=== PATIENT | female | born 1960 | race Caucasian/White ===

== ENCOUNTER 2023-09-12 14:48 | Outpatient (CLI) | payer BC, SELFPAY ==
--- NOTE | 2023-09-12 14:40 | CRLHL7_ITS ---
For Patients: As a result of the Century Cures Act, medical imaging exams and procedure reports are released immediately into your electronic medical record. You may view this report before your referring provider. If you have questions, please contact your health care provider. BILATERAL SCREENING MAMMOGRAM WITH COMPUTER-AIDED DETECTION AND TOMOSYNTHESIS TECHNIQUE: CC and MLO views were obtained. These mammographic images have been obtained using full-field digital technique. These mammographic images were interpreted with the benefit of computer-aided detection. Breast Tomosynthesis was used in this interpretation. COMPARISON FILM: 02/14/22, 10/19/20, 09/19/19. FINDINGS: There are scattered areas of fibroglandular density IMPRESSION: There is no radiographic evidence for malignancy. ASSESSMENT: BI-RADS Category 1: Negative RECOMMENDATION: Routine screening mammogram in 1 year. A lay language report of this examination will be provided to the patient. Hill Howell M.D. Diagnostic Radiologist [email or web address] MARITO/Dictated by: Hill Howell MD @ 09/13/2023 8:30:00 AM (Electronically Signed)
== END 2023-09-12 14:49 | disposition home or self-care (01) ==
LOC: MAMMO 14:50
PROVIDERS: Visit Provider Physician Assistant
DX: Z12.31 Encounter for screening mammogram for malignant neoplasm of breast (principal)
CPT/HCPCS: 77063; 77067

== ENCOUNTER 2023-10-22 08:17 | Outpatient (CLI) | payer OTHER, SELFPAY ==
--- OUTSIDE RECORDS SUMMARY | 2023-10-23 07:06 | XMS_ITS | Clinical Summary ---
Author Name Unknown Organization [facility] Address [place], [place] [address] Care Team Providers Care Retail Sales Director Name Role Phone Aminata Coe PA-C Primary Care Provider [phone]- [phone] Allergies No known active allergies Medications Medication Sig Dispensed Refills Start Date End Date Status LEVOTHYROXINE 75 MCG TAB take 1 tablet (75mcg) by oral route once daily 0 Active Active Problems Problem Noted Date Diagnosed Date Unspecified hypothyroidism 11/21/2006 Personal history of malignant melanoma of skin 0 11/21/2006 Overview: (r) breast Immunizations Name Administration Dates Next Due AMB Influenza, IIV3 (Age >=3 years)(Flu Clinic Only) 07/08/2012,07/25/2011,09/02/2010 Amb Influenza, Inact (High-d ose) (Flu Clinic Only) 07/15/2015 Influenza, IIV3 (Age >=3 years) 08/05/2013 Influenza, IIV4 08/08/2016 Tdap 11/21/2006 Family History Medical History Relation Name Comments Heart Disease Paternal Grandmother mi Stroke Paternal Grandmother Relation Name Status Comments Daughter victorino Alive Other wang Alive spouse Paternal Grandmother Son 1 sindy Alive Son 2 raquel Alive Social History Tobacco Use Types Packs/Day Years Used Date Smoking Tobacco: Never Smokeless Tobacco: Never Tobacco Cessation:Counseling Given: Yes Alcohol Use Standard Drinks/Week Comments Yes 2 (1 standard drink = 0.6 oz pur e alcohol) 1 to 2 per week Social Connections Answer Date Recorded Frequency of Communication with Friends and Fami ly Not on file 09/30/2021 Financial Resource Strain Answer Date R ecorded Difficulty of Paying Living Expenses Not on file 09/30/2021 Difficulty of Paying Living Expenses Not on file 09/30/2021 Sex and Gender Information Value Date Recorded Sex Assigned at Not on file Gender Identity Not on file Sexual Orientation Not on file Obstetrics History Last Filed Vital Signs Vital Sign Reading Time Taken Comments Blood Pressure 128/78 09/30/2021 2:25 PM SENIOR UI SOFTWARE ENGINEER Pulse 64 09/30/2021 2:25 PM SENIOR UI SOFTWARE ENGINEER Temperature 36.9 ??C (98.4 ??F) 09/30/2021 2:25 PM CS T Respiratory Rate - - Oxygen Saturation 95% 09/30/2021 2:25 PM SENIOR UI SOFTWARE ENGINEER Inhaled Oxygen Concentration - - Weight 69.8 kg (153 lb 12.8 oz) 08/08/2016 9:32 AM SENIOR UI SOFTWARE ENGINEER Height 165.1 cm (5' 5) 08/08/2016 9:32 AM SENIOR UI SOFTWARE ENGINEER Body Mass Index 25.59 08/08/2016 9:32 AM SENIOR UI SOFTWARE ENGINEER Plan of Treatment Health Maintenance Due Date Last Done Comments HIV for age 15-65 1977 Hepatitis C screening for age 18-79 1980 Lipids for age 45-75 05/22/2011 05/22/2006 Zoster (shingles) series for age 50+ (1 of 2) 2012 Mammogram for age 45-75 09/04/2015 09/04/20 14 ([facility]) Tetanus booster 11/21/2016 11/21/2006 Depression screening for age 12+ 01/16/2017 01/17/2016 BMI (ht and wt on same day) for age 18+ 08/08/2017 08/08/2016, 03/23/2016, 01/17/2016 Pap test for age 21-65 11/10/2022 0, 11/10/2019, 07/29/2014, Additional history exists COVID-19 vaccine series ( season) 2023 01/31/2022, 01/15/2021, 12/25/2020 Influenza for age 50-64 06/01/2023 08/08/20 16, 08/05/2013, 07/08/2012, Additional history exists Fecal testing sDNA-FIT (Cologuard) for age 45-75 10/30/2025 10/30/2022 (Verified in Care Everywhere or Patient Record) Tdap Completed 11/21/2006 Pneumococcal series for age 6-64 Aged Out No longer eligible based on patient's age to complete this topic Care Teams Retail Sales Director Relationship Specialty Start Date End Date Aminata Coe PA-C [address] [place] [phone] PCP - General Physician Checkerer Hand 03/22/23
--- OUTSIDE RECORDS SUMMARY | 2023-10-23 07:06 | XMS_ITS | Clinical Summary ---
Author Name Unknown Organization [facility] Address [address] [place] [id number] Care Team Providers Care City Secretary Name Role Phone Aminata Coe P.A.-C. Primary Care Provider Source Comments Patient records contain information from all sites at [facility]. For routine questions regarding patient records, call [phone] during business hours, M-F 8:00 AM - 5:00 PM Central Time. Record requests for emergency care only can be directed to [phone] at any time.[facility] Allergies Active Allergy Reactions Criticality Noted Date Comments Latex Rash 04/19/2018 And rubber: Contact dermititis Medications Medication Sig Dispensed Refills Start Date End Date Status multivit with minerals/lutein (MULTIVITAMIN 50 PLUS ORAL) Take 1 tablet by mouth daily. 0 02/10/2010 Active fluocinonide (LIDEX) 0.05 % external solution Apply 0.05 application topically 2 (two) times a day as needed for rash. 60 mL 1 01/31/2022 Active fluocinolone (DERMA-SMOOTHE) 0.01 % external oil Apply once weekly overnight to scalp. 0 06/23/2022 Active rosuvastatin (CRESTOR) 20 mg tablet Take 1 tablet (20 mg total) by mouth daily. 30 tablet 5 07/04/2023 Active levothyroxine (SYNTHROID, LEVOTHROID) 88 mcg tablet Take 1 tablet by mouth every morning before breakfast on an empty stomach. 90 tablet 3 09/19/2023 Active Active Problems Patient Care Coordination No te Formatting of this note migh t be different from the original. gardenia signed for patients spouse wang medina. Good for lifetime unless revoked by patient Problem Noted Date Diagnosed Date Gastroesophageal Reflux Disease 04/16/2018 Hyperlipidemia 02/20/2010 Overview: Images from the original note were not included. 06/21/2020: Lipid Profile 270 TG 212 LDL 185 HDL 43 TSH 3.05 Mom: high cholesterol, no h/o stroke or RI, age 80s Dad: on statin, 82 yo, CAD, stent in 70s. Lifelong nonsmoker 07/21/2020 ASCVD risk 3.3% ASCVD risk is low at 3.3%, but LDL is 215, up from 124 in 2006. This is likely familial hyperlipidemia, given the high LDL. TSH is in target range. No signs of renal disease/liver disease/nephrotic syndrome, but last labs in 2019. CT Coronary Calcium Scan 06/2021 showed a Coronary Calcium Score of zero (no calcifications on coronary arteries). Based on this, we decided to defer statins, check lipids every year or two, and focus on maintaining the lifestyle habits to prevent cardiovascular disease. We can refer to familial hyperlipidemia clinic at anytime for additional testing or a second opinion on the role of statins. CV risk factors: Hyperlipidemia and family history of CAD. ?? Last Assessment & Plan: ASCVD risk is low at 3.3%, but LDL is 215, up from 124 in 2006. This is likely familial hyperlipidemia, given the high LDL. TSH is in target range. No signs of renal disease/liver disease/nephrotic syndrome, but last labs in 2019. Hyperlipidemia and family history are her only CV risk factors. --optimize diet and exercise to lower cholesterol --submit a 1 week food log and exercise log for review for opportunities for change. --information on mediterranean diet and alternative therapies to lower cholesterol provided --repeat lipids in 6 months --if lipids remain elevated with LDL > 160, obtain Coronary Calcium Scan to guide decision about statin therapy (consider [facility] self pay option for $100) --if calcifications present, start statin; if not present, continue to optimize lifestyle habits --referral to familial hyperlipidemia clinic is appropriate at anytime --any children/siblings should be screening for lipids if they haven't already done so Hypothyroidism 02/20/2010 Overview: Longstanding, at least since 2007. 10/22/2020 TSH 3.75. Last Assessment & Plan: --labs 10/22/2020 TSH 3.75 --continue levothyroxine 75mcg daily --annual TSH Psoriasis 02/20/2010 Melanoma Of Skin Cancer Personal History 007 Overview: (r) breast. (2004) Goes to [facility] D[facility] 12/2021: Skin lesion biopsied, result: Solar lentigo Last Assessment & Plan: --annual screening skin exam --sun protection measures Resolved Problems Problem Noted Date Diagnosed Date Resolved Date Pain Knee Left 04/22/2018 10/28/2020 Keratosis Seborrheic 04/22/2018 021 Nevus Dysplastic 04/22/2018 10/28/2020 Health Maintenance Examination Adult 04/16/2018 10/28/2020 Dermatitis Contact 04/16/2018 Overview: Both feet Pain Chest Atypical 04/16/2018 10/28/19 21 Overview: Chest pressure in evening Elevated Blood Pressure 04/16/201810/02 Melanoma Skin 02/20/2010 10/28/2020 Overview: Melanoma of Skin, Site Unspecified Encounters Date Type Department Care Team Description 10/05/2023 9:00 AM LIFT OPERATOR Virtual Visit Department of Medical Genetics in [place], [place] [address] [place] [address] Clifton Whitman Hyperlipidemia (Primary Dx) 10/02/2023 Orders Only [facility] Aminata Coe P.A.-C. Screening Mammogram Breast Cancer 09/18/2023 Refill Department of Community Internal Medicine in [place], [place] [address] [place] [phone] Harley Barillas P.A.-C., P.A. Med Refill 08/16/2023 Clinical Communication Department of Medical Genetics in [place], [place] [address] [place] [phone] J Carlos Clifton [place] CV FH Coord 08/15/2023 Clinical Communication Department of Cardiovascular Medicine in [place], [place] [address] [place] [phone] Eliane Trejo APRN, C.N.P., M.S.N. Results (Test results from Aug 02) 08/02/2023 9:22 AM CDT - 08/02/2023 11:59 PM CDT Hospital Encounter Department of Laboratory Medicine and Pathology, [facility] in [place], [place] [address] [place] [address] Eliane Trejo APRN, C.N.P., M.S.N. Hyperlipidemia Discharge Disposition: Home or Self Care 08/02/2023 8:30 AM CDT Comprehensive Visit Department of Cardiovascular Medicine in [place], [place] [address] [place] [address] Eliane Trejo APRN, C.NEdmundo., M.S.N. Hyperlipidemia from Last 3 Months Immunizations Name Administration Dates Next Due DTaP (Infanrix, Tripedia) 11/21/2006 H1N1 All Forms 09/17/2009 Influenza (IM) Preservative Free 07/25/2011 Influenza TIV (IM) 08/05/2013, 2,07/25/2011,2009 Influenza, Injectable, Quadrivalent 08/08/2016 Influenza, Seasonal, Injectable 08/05/2013,07/08,09/02/2010 Influenza, Unspecified 08/15/2013,06/16/2009 SARS-COV-2 (COVID-19) - PFIZ ER (12 years or older) 01/15/2021,12/25/2020 SARS-COV-2 (COVID-19) - PFIZ ER TS(12 years or older) 01/31/2022 Tdap 07/14/2015,11/21/2006 influenza high dose (65 year s or older) (PF) 07/15/2015 influenza vaccine QV(FLUBLOK ) (18 years or older) (PF) 08/06/2021 influenza vaccine quad (FLUZONE/FLUARIX) (6 months and older)(PF) 07/13/2022,06/21/2020,08/08/2019,2017,08/08/2016 Family History Medical History Relation Name Comments Hypertension Aunt Paternal Hyperlipidemia Brother Carlos Jaime Anxiety disorder Daughter Elizabeth Medina Hyperlipidemia Father Clayton Jaime Multiple myeloma Father Clayton Jaime Other cancer Father Clayton Jaime Father 2015 Sleep apnea Father Clayton Jaime Coronary artery disease Father's Sister aunt Hypertension Maternal Grandfather Motor vehicle accident Maternal Grandfather Alcohol abuse Mother Lisy Jaime Just stoppe d using May 04, 2023 Alzheimer's disease Mother Lisy Jaime Dementia Mother Lisy Jaime Depression Mother Lisy Jaime After her hu sband was diagnosed with Cancer in 2014. Not prior Hyperlipidemia Mother Lisy Jaime Suicide Attempts Mother Lisy Jaime Under th e influence of alcohol after spouse passed. Thyroid disease Mother Lisy Jaime Heart attack Paternal Grandmother Lizette Jaime Hypertension Paternal Grandmother Lizette Jaime She was very overweight and did not exercise Obesity Paternal Grandmother Lizette Jaime Hyperlipidemia Sister Joaquin Jaime Hyperlipidemia Son Panda Medina Relation Name Status Comments Aunt Paternal Alive Brother Carlos Jaime Daughter Elizabeth Medina Father Clayton Jaime Father's Sister aunt Maternal Grandfather Mother Lisy Jaime Paternal Grandfather Paternal Grandmother Lizette Jaime Sister Joaquin Jaime Son Panda Medina Social History Tobacco Use Types Packs/Day Years Used Date Smoking Tobacco: Never Smokeless Tobacco: Never Tobacco Cessation:Counseling Given: Not Answered Alcohol Use Standard Drinks/Week Comments Yes 1 (1 standard drink = 0.6 oz pur e alcohol) 1-2 per week Humiliation, Afraid, Rape, and Kick questionnair e Answer Date Recorded Fear of Current or Ex-Partner No Emotionally Abused No 07/21/2020 Physically Abused No 07/21/2020 Sexually Abused No 07/21/2020 Social Connection and Isolation Panel [NHANES] A nswer Date Recorded Frequency of Communication with Friends and Fami ly Not on file 07/21/2020 How often do you get together with friends or re latives? Twice a week 07/21/2020 How often do you attend bahai or faith serv ices? Never 07/21/2020 Do you belong to any clubs o r organizations such as bahai groups, unions, fraternal or athletic groups, or school groups? No 07/21/2020 How often do you attend meet ings of the clubs or organizations you belong to? Never 07/21/2020 Marital Status Not on file 07/21/2020 AUDIT-C Answer Date Recorded Frequency of Alcohol Consumption 2-3 times a wee k 07/21/2020 Average Number of Drinks 1 or 2 020 Frequency of Binge Drinking Never 07/02 Overall Financial Resource Strain (CARDIA) Answe r Date Recorded How hard is it for you to pa y for the very basics like food, housing, medical care, and heating? Not hard at all 08/02/2023 PHQ-2 Answer Date Recorded PHQ-2 Score 0 01/31/2022 [facility] Occupat ional Health - Occupational Stress Questionnaire Answer Date Recorded Feeling of Stress To some extent 07/21/2020 Exercise Vital Sign Answer Date Recorde d On average, how many days pe r week do you engage in moderate to strenuous exercise (like a brisk walk)? 5 days 08/02/2023 On average, how many minutes do you engage in exercise at this level? 40 min 08/02/2023 Hunger Vital Sign Answer Date Recorded Within the past 12 months, y ou worried that your food would run out before you got the money to buy more. Never true 08/02/20 Within the past 12 months, t he food you bought just didn't last and you didn't have money to get more. Never true 08/02/2023 PRAPARE - Transportation Answer Date Re corded In the past 12 months, has l ack of transportation kept you from medical appointments or from getting medications? No 11/2022 In the past 12 months, has l ack of transportation kept you from meetings, work, or from getting things needed for daily living? No 08/02/2023 Nutrition Answer Date Recorded Nutrition: EVOO Fat Source Unknown 08/02 On average, how many serving s of fruits and vegetables do you eat per day (serving size is equal to 1 cup or approximately the size of a tennis ball)? 0-2 08/02/2023 Dental Answer Date Recorded Dental: Regular Dentist Yes 08/02/20 Employment Answer Date Recorded Employment status Employed and actively working without restrictions 08/02/2023 Housing Stability Answer Date Recorded What is your living situation today? I have a [facility] place to live 08/02/2023 Education Answer Date Recorded What is the highest level of school you have completed or the highest degree you have received? Bachelor's degree (e.g., BA, AB, BS) 04/17/2019 Sex and Gender Information Value Date Recorded Sex Assigned at Not on file Gender Identity Female 01/15/2020 9:15 AM CDT Sexual Orientation Straight 01/15/2020 9: 15 AM CDT Last Filed Vital Signs Vital Sign Reading Time Taken Comments Blood Pressure 118/74 02/27/2023 7:49 AM CDT Pulse 60 02/27/2023 7:49 AM CDT Temperature 35.7 ??C (96.2 ??F) 02/27/2023 7:49 AM CD T Respiratory Rate 16 02/27/2023 7:49 AM CDT Oxygen Saturation 97% 10/28/2020 10:33 AM LIFT OPERATOR Inhaled Oxygen Concentration - - Weight 65.5 kg (144 lb 6.4 oz) 02/27/2023 7:49 A M CDT Height 165.3 cm (5' 5.08) 01/31/2022 9:23 AM CD T Body Mass Index 23.97 01/31/2022 9:23 AM CDT Plan of Treatment Health Maintenance Due Date Last Done Comments CT Colonography 1962 FIT 1960 Hepatitis C Screening 1960 Zoster Vaccines (1 of 2) 2012 Colonoscopy 08/13/2022 08/13/2012 Depression Screening (Annual PHQ-2) 10/01/2023 Thyroid Stimulating Hormone (TSH) test for thyroid function 07/04/2024 07/04/2023, 01/31/2023, 01/31/2022, Additional history exists Mammogram 09/12/2024 09/12/2023 (Perf ormed elsewhere), 02/12/2022 (Performed elsewhere), 09/19/2019, Additional history exists Cervical Cancer Screening 11/10/20242019, 11/10/2019, 11/10/2019, Additional history exists DTaP,Tdap,and Td Vaccines (4 - Td or Tdap) 07/14/2025 07/14/2015, 11/21/2006, 11/21/2006 Cologuard 10/23/2025 10/23/2022 Colorectal Cancer Screening 10/23/2025 Fasting Glucose for Diabetes Screening 07/04/2026 07/04/2023, 07/04/2023, 01/31/2023, Additional history exists Lipid (Cholesterol) Screening 07/04/2028 07/04/2023, 07/04/2023, 01/31/2023, Additional history exists Influenza Vaccine Completed 06/28/2023, , 08/06/2021, Additional history exists COVID-19 Vaccine Completed 07/23/2023, , 01/31/2022, Additional history exists Pneumococcal vaccine (0-64 years) Aged Out No longer eligible based on patient's age to complete this topic Procedures Procedure Name Priority Date/Time Associated Diagnosis Comments CRYOPRESERVATION FOR MOLEC STUDIES Routine 08/02/2023 9:42 AM CDT Hyperlipidemia from Last 3 Months Results * Cryopreservation for Molecular Genetic Studies (08/02/2023 9:42 AM CDT) Comment A DNA specimen has been stored for future genomic studies. This specimen has been stored at the request of the ordering physician for anticipated future testing. In some instances, a portion of the specimen may remain available (by consent) for use by the individual and/or family. This is not a DNA banking service. If continuous churn buttermaker, guaranteed specimen storage is required, DNA banking should be considered. The Genomic Extraction Core extracted DNA. DNA Volume (microliters): ??500+ Please review the following table to determine the possible number of tests that can be added for send out testing. DNA (ul) ? Possible Send Outs (~120 ul) <100 ? Recommend Redraw 100 ?1 250 ?2 500 ?4 08/09/2023 10:27 PM LIFT OPERATOR DTL Specimen WB Whole Blood 08/09/2023 10:27 PM LIFT OPERATOR DTL Released By JENNA ARENAS 08/09/2023 10:27 PM LIFT OPERATOR DTL Blood (Blood, Venous) 08/02/2023 9:42 AM CDT 08/02/2023 10:37 AM CDT Eliane Trejo APRN, C.N.P., M.S.N. LAB GENETIC TESTING [facility] [address] [place] [address], [facility] [address] [place] [address] from Last 3 Months Care Teams City Secretary Relationship Specialty Start Date End Date Aminata Coe P.A.-C. [address] [place] [phone] PCP - General Internal Medicine 09/26/22
--- OUTSIDE RECORDS SUMMARY | 2023-10-23 07:06 | XMS_ITS ---
Author Name Unknown Organization [facility] Address [address] [place] [address] Care Team Providers Care Property Technician Name Role Phone Unavailable Unavailable Unavailable Surgery Details Not on file Complications Check Surgery Details section. Procedure Estimated Blood Loss Check Surgery Details section. Procedure Findings Check Surgery Details section. Procedure Specimens Taken Check Surgery Details section.
--- OUTSIDE RECORDS SUMMARY | 2023-10-23 07:06 | XMS_ITS | Referral Summary ---
Author Name Unknown Organization [facility] Address [address] [place] [address] Care Team Providers Care Outsole Handler Name Role Phone Aminata Coe P.A.-C. Primary Care Provider Source Comments Patient records contain information from all sites at [facility]. For routine questions regarding patient records, call [phone] during business hours, M-F 8:00 AM - 5:00 PM Central Time. Record requests for emergency care only can be directed to [phone] at any time.[facility] Encounters Date Type Department Care Team Description 10/05/2023 9:00 AM INTERFACE DEVELOPER Virtual Visit Department of Medical Genetics in [place], [place] [address] [place] [phone] Clifton Whitman Hyperlipidemia (Primary Dx) 10/02/2023 Orders Only [facility] PCP [facility] NJT Aminata Coe P.A.-C. Screening Mammogram Breast Cancer 09/18/2023 Refill Department of Community Internal Medicine in [address] [phone] Harley Barillas P.A.-C., P.A. Med Refill 08/16/2023 Clinical Communication Department of Medical Genetics in [place], [place] [address] [place] [phone] Clifton Whitman CV FH Coord 08/15/2023 Clinical Communication Department of Cardiovascular Medicine in [place], [place] [address] [place] [phone] Eliane Trejo APRN, C.N.P., M.S.N. Results (Test results from Aug 02) 08/02/2023 9:22 AM CDT - 08/02/2023 11:59 PM CDT Hospital Encounter Department of Laboratory Medicine and Pathology, [facility], in [place], [place] [address] [place] [address] Eliane Trejo APRN, C.N.P., M.S.N. Hyperlipidemia Discharge Disposition: Home or Self Care 08/02/2023 8:30 AM CDT Comprehensive Visit Department of Cardiovascular Medicine in [place], [place] [address] [place] [phone] Eliane Trejo APRN, C.N.P., M.S.N. Hyperlipidemia from Last 3 Months Allergies Active Allergy Reactions Criticality Noted Date [...] Mom: high cholesterol, no h/o stroke or NV, age 80s Dad: on statin, 82 yo, [...] to guide decision about statin therapy (consider [facility] self pay option for $100) --if calcifications [...] Cancer Personal History 007 Overview: (r) breast. (2005) Goes to [facility] 12/2021: Skin lesion biopsied, result: Solar lentigo Last Assessment & Plan: --annual screening skin exam --sun protection measures Resolved Problems Problem Noted Date Diagnosed Date Resolved Date Pain Knee Left 04/22/2018 10/28/2020 Keratosis Seborrheic 04/22/2018 021 Nevus Dysplastic 04/22/2018 10/28/2020 Health Maintenance Examination Adult 04/16/2018 10/28/2020 Dermatitis Contact 04/16/2018 Overview: Both feet Pain Chest Atypical 04/16/2018 10/28/19 Overview: Chest pressure in evening Elevated Blood Pressure 04/16/201810/02 Melanoma Skin 02/20/2010 10/28/2020 Overview: Melanoma of Skin, Site Unspecified Immunizations Name Administration Dates Next Due DTaP [...] quad (FLUZONE/FLUARIX) (6 months and older)(PF) 07/13/2022,06/21/2020,08/08/2019,2017,08/08/2016 Social History Tobacco Use Types Packs/Day Years [...] week 07/21/2020 How often do you attend cheondoism or roman catholic serv ices? Never 07/21/2020 Do you belong to any clubs o r organizations such as cheondoism groups, unions, fraternal or athletic groups, or [...] Answer Date Recorded PHQ-2 Score 0 01/31/2022 [facility] of Occupat ional Health - Occupational Stress [...] your living situation today? I have a [facility] place to live 08/02/2023 Education Answer [...] CDT Oxygen Saturation 97% 10/28/2020 10:33 AM INTERFACE DEVELOPER Inhaled Oxygen Concentration - - Weight 65.5 kg (144 lb 6.4 oz) 02/27/2023 7:49 A M CDT Height 165.3 cm (5' 5.08) 01/31/2022 9:23 AM CD T Body Mass Index 23.97 01/31/2022 9:23 AM CDT Plan of Treatment Not on file Procedures Procedure Name Priority Date/Time Associated Diagnosis [...] is not a DNA banking service. If buttermaker, guaranteed specimen storage is required, DNA banking should be considered. The Genomic Extraction Core extracted DNA. DNA Volume (microliters): ??500+ Please review the following table to determine the possible number of tests that can be added for send out testing. DNA (ul) ? Possible Send Outs (~120 ul) <100 ? Recommend Redraw 100 ?1 250 ?2 500 ?4 08/09/2023 10:27 PM INTERFACE DEVELOPER DTL Specimen WB Whole Blood 08/09/2023 10:27 PM INTERFACE DEVELOPER DTL Released By JENNA ARENAS 08/09/2023 10:27 PM INTERFACE DEVELOPER DTL Blood (Blood, Venous) 08/02/2023 9:42 AM CDT 08/02/2023 10:37 AM CDT Eliane Trejo APRN, C.N.P., M.S.N. LAB GENETIC TESTING [facility] [place] [address] [place] [address], [facility] DTL [address] [place] [address] from Last 3 Months Care Teams Outsole Handler Relationship Specialty Start Date End Date Aminata Coe P.A.-C. [address] [place] [address] AYALA Liao [phone] PCP - General Internal Medicine 09/26/22
--- OUTSIDE RECORDS SUMMARY | 2023-10-23 07:07 | XMS_ITS | Encounter Summary ---
Author Name Unknown Organization [facility] Address [address] [place] [id number] Care Team Providers Care Reinforcer Name Role Phone Aminata Coe P.A.-C. Primary Care Provider Reason for Visit * Outpatient (Routine) - Closed Specialty Diagnoses / Procedures Referred By Contact Referred To Contact Cardiovascular Diseases / Cardiovascular Disease Diagnoses Hyperlipidemia Susu Sevilla M.D., M.P.H. [address] [place] [phone] [facility] Referral ID Status Reason Start Date Expiration Date Visits Re quested Visits Authorized [id number] Closed 06/28/2023 06/27/2024 1 1 Encounter Details Date Type Department Care Team (Latest Contact Info) Description 08/02/2023 8:30 AM CDT Comprehensive Visit Department of Cardiovascular Medicine in [place], [place] [address] [place] [phone] Eliane Trejo APRN, C.N.P., M.S.N. [address] [place] [phone] Hyperlipidemia Social History Tobacco Use Types Packs/Day Years Used Date Smoking Tobacco: Never Smokeless Tobacco: Never Alcohol Use Standard Drinks/Week Comments Yes 0 (1 standard drink = 0.6 oz pur [...] week 07/21/2020 How often do you attend mu-ism or latter day serv ices? Never 07/21/2020 Do you belong to any clubs o r organizations such as mu-ism groups, unions, fraternal or athletic groups, or [...] Answer Date Recorded PHQ-2 Score 0 01/31/2022 [facility] of Occupat ional Health - Occupational Stress [...] money to buy more. Never true 08/02/20 23 Within the past 12 months, t he [...] your living situation today? I have a [facility] place to live 08/02/2023 Education Answer Date Recorded What is the highest level of school you have completed or the highest degree you have received? Bachelor's degree (e.g., BA, AB, BS) 04/17/2019 Sex and Gender Information Value Date Recorded Sex Assigned at Not on file Gender Identity Female 01/15/2020 9:15 AM CDT Sexual Orientation Straight 01/15/2020 9: 15 AM CDT documented as of this encounter Progress Notes * Eliane Trejo APRN, C.N.P., M.S.N. - 08/02/2023 8:30 AM CDT SUBJECTIVE CHIEF COMPLAINT/REASON FOR VISIT Hyperlipidemia suggestive of Familial Hypercholesterolemia HISTORY OF PRESENT ILLNESS Reshma Nielsen is a 63 y.o. female who is being seen today for initial consultation. She was referred by Dr. Sevilla for hyperlipidemia suggestive of familial hypercholesterolemia or other underlyinggenetic cause. Personal Cardiac History: None Family History: Mother history of hyperlipidemia Father stent in his 70s and at 83 years of age Paternal aunt had a stent placed later in life Paternal cousin had a stent placed Paternal grandmother had an DC later in life Lipid History: Max Total Cholesterol-274 Max LDL-208 Lpa-22 I reviewed historic lipid values dating back to 2005. Her LDL cholesterol was 124 at that time. Between 2017 in 2022 her LDL cholesterol varying between 150-161. Prior lipid medication history: Started on rosuvastatin 20 mg per day July 04, 2023 We discussed lifestyle habits, specifically diet and exercise. She notes she diet to be reasonably healthy. Her exercise habits include elliptical. The following portions of the patient's history were reviewed and updated as appropriate: allergies, current medications, family history, medical history, social history, surgical history, and problem list. OBJECTIVE PHYSICAL EXAMINATION Constitutional Appearance: Normal appearance. HENT Head: Normocephalic. Eyes Conjunctiva/sclera: Conjunctivae normal. Comments: No corneal arcus or xanthelasma Pulmonary Effort: Pulmonary effort is normal. Neurological Mental Status: She is alert and oriented to person, place, and time. Psychiatric Mood and Affect: Mood normal. Behavior: Behavior normal. DIAGNOSTICS Lipids: Lab Results Component Value Date/Time CHOL 262 (H) 07/04/2023 09:17 AM CHOL 274 (H) 07/04/2023 09:17 AM TRIG 96 07/04/2023 09:17 AM TRIG 96 07/04/2023 09:17 AM HDL 49 (L) 07/04/2023 09:17 AM HDL 49 (L) 07/04/2023 09:17 AM LDLCALC 196 (H) 07/04/2023 09:17 AM LDLCALC 208 (H) 07/04/2023 09:17 AM LDLCALC 154 (H) 05/17/2021 08:24 AM Lipoprotein (a) Date Value Ref Range Status 07/04/2023 22 <75 nmol/L Final Comment: ----ADDITIONAL INFORMATION---- Please notice that Lp(a) values are reported in molar units (nmol/L). These units are recommended by professional society guidelines and expert opinion statements. Measured results and risk thresholds are higher than those generated using mass units (mg/dL). Cardiovascular risk increases starting at 75 nmol/L. Lp(a) >=125 nmol/L is considered a risk enhancing factor by the [place] [employer]. This test has been modified from the bench carpenter's instructions. Its performance characteristics were determined by [facility] in a manner consistent with CLIA requirements. This test has not been cleared or approved by the U.S. Food and Drug Administration. Glucose, P Date Value Ref Range Status 07/04/2023 86 70 - 100 mg/dL Final 01/31/2023 CANCELED mg/dL Comment: Duplicate test request. Result canceled by the ancillary. Hemoglobin A1c, B Date Value Ref Range Status 07/04/2023 5.7 (H) 4.2 - 5.6 % Final Comment: Hemoglobin A1c values of 5.7-6.4 percent indicate an increased risk for developing diabetes mellitus. In diabetic patients, HbA1c goals should be discussed with healthcare provider. C-Reactive Protein, High Sens, S Date Value Ref Range Status 07/04/2023 0.7 <2.0 mg/L Final DC-Heart Ceramide Risk Score Date Value Ref Range Status 07/04/2023 2 Final Comment: Lower Risk. Relative cardiovascular risk is similar to baseline risk. ----REFERENCE VALUE---- 0-2 Lower Risk 3-6 Moderate Risk 7-9 Increased Risk 10-12 Higher Risk ASSESSMENT / PLAN #1 Hyperlipidemia Ms. Nielsen has history of hyperlipidemia that is now treated with rosuvastatin 20 mg per day. She has a [place] [employer] score of 4 indicating possible familial hypercholesterolemia. Sinceerma has no family history of premature ASCVD my suspicion for FH is reasonably low. However, it is reasonable to consider the possibility. Lipoprotein (a) is normal. DC Heart Ceramide Risk score is 2; low risk. Would suggest goal LDL of <100: Continue with rosuvastatin as prescribed. She is scheduled to have repeat lipid panel in October as arranged by her local provider. If goal LDL not achieved would recommend intensifying therapy. Genetic counselor visit: She agreed to consider genetic testing for familial hypercholesterolemia therefore I will arrange for her to discuss testing process with our genetics counselor assistant site manager, Clifton Whitman. Preemptively I have placed orders for cryopreservation labs which will be drawn today after our visit. If a genetic variant is identified recommend that first-degree relatives be tested. She is encouraged to maintain a healthy diet and regular exercise regimen. Guidelines recommend a Mediterranean style diet with plenty of fruits and vegetables, lean proteins, healthy fats, and limited simple carbohydrates and sugars. Exercise recommendations include 150 minutes per week of moderate to intense level cardio and 30 minutes of strength training per week. It was my pleasure to participate in the care of Reshma Nielsen. She verbalized understanding of recommendations and had no further questions. Eliane Trejo APRN, C.N.P., M.S.N. [facility] is designed to be a consultative practice that focuses on risk factor optimization in the primary and secondary prevention of cardiovascular disease. Encourage local provider to implement any follow-up recommendations for longitudinal management. documented in this encounter Plan of Treatment Not on file documented as of this encounter Results * Cryopreservation for Molecular Genetic Studies [...] is not a DNA banking service. If fpc, guaranteed specimen storage is required, DNA banking should be considered. The Genomic Extraction Core extracted DNA. DNA Volume (microliters): ??500+ Please review the following table to determine the possible number of tests that can be added for send out testing. DNA (ul) ? Possible Send Outs (~120 ul) <100 ? Recommend Redraw 100 ?1 250 ?2 500 ?4 08/09/2023 10:27 PM LOADING UNIT OPERATOR DTL Specimen WB Whole Blood 08/09/2023 10:27 PM LOADING UNIT OPERATOR DTL Released By JENNA ARENAS 08/09/2023 10:27 PM LOADING UNIT OPERATOR DTL Blood (Blood, Venous) 08/02/2023 9:42 AM CDT 08/02/2023 10:37 AM CDT Eliane Trejo APRN C.N.P., M.S.N. LAB GENETIC TESTING [facility] [address] [place] [address], [facility] DTL [address] [place] [address] documented in this encounter Visit Diagnoses Diagnosis Hyperlipidemia documented in this encounter Care Teams Reinforcer Relationship Specialty Start Date End Date Aminata oCe P.A.-C. [address] [place] [phone] PCP - General Internal Medicine 09/26/22 documented as of this encounter
--- OUTSIDE RECORDS SUMMARY | 2023-10-23 07:07 | XMS_ITS | Encounter Summary ---
Author Name Unknown Organization [facility] Address [address] [place] [address] Care Team Providers Care Polarity Tester Name Role Phone Aminata Coe P.A.-C. Primary Care Provider Encounter Details Date Type Department Care Team (Latest Contact Info) Description 07/04/2023 8:49 AM CDT - 07/04/2023 11:59 PM CDT Hospital Encounter Department of Laboratory Medicine in [address] [phone] Susu Sevilla M.D., M.P.H. Hyperlipidemia Discharge Disposition: Home or Self Care Social History Tobacco Use Types Packs/Day Years [...] week 07/21/2020 How often do you attend sikh or oriental orthodox serv ices? Never 07/21/2020 Do you belong to any clubs o r organizations such as sikh groups, unions, fraternal or athletic groups, or [...] Resource Strain (CARDIA) Answe r Date Recorded Difficulty of Paying Living Expenses Not hard at all 07/21/2020 PHQ-2 Answer Date Recorded PHQ-2 Score 0 01/31/2022 [facility] - Occupational Stress Questionnaire Answer Date Recorded Feeling of Stress To some extent 07/21/2020 Exercise Vital Sign Answer Date Recorde d On average, how many days pe r week do you engage in moderate to strenuous exercise (like a brisk walk)? 5 days Minutes of Exercise per Session Not on file 07/21/2020 Hunger Vital Sign Answer Date Recorded Worried About Running Out of Food in the Last Ye ar Never true 07/21/2020 Ran Out of Food in the Last Year Never true 07/21/2020 PRAPARE - Transportation Answer Date Re corded Lack of Transportation (Medical) No 07/21/2020 Lack of Transportation (Non-Medical) No 07/21/2020 Nutrition Answer Date Recorded Nutrition: EVOO Fat Source No 02/27 Nutrition: Servings of Fruits/Vegetables per Day Not on file 02/27/2023 Dental Answer Date Recorded Dental: Regular Dentist Yes 10/03/19 Education Answer Date Recorded What is the highest level of school you have completed or the highest degree you have received? Bachelor's degree (e.g., BA, AB, BS) 04/17/2019 Sex and Gender Information Value Date Recorded Sex Assigned at Not on file Gender Identity Female 01/15/2020 9:15 AM CDT Sexual Orientation Straight 01/15/2020 9: 15 AM CDT documented as of this encounter Medications at Time of Discharge Medication Sig Dispensed Refills Start Date End Date fluocinolone (DERMA-SMOOTHE) 0.01 % external oil Apply once weekly overnight to scalp. 0 06/23/2022 fluocinonide (LIDEX) 0.05 % external solution Apply 0.05 application topically 2 (two) times a day as needed for rash. 60 mL 1 01/31/2022 multivit with minerals/lutein (MULTIVITAMIN 50 PLUS ORAL) Take 1 tablet by mouth daily. 0 02/10/2010 rosuvastatin (CRESTOR) 20 mg tablet Take 1 tablet (20 mg total) by mouth daily. 30 tablet 5 07/04/2023 levothyroxine (SYNTHROID, LEVOTHROID) 88 mcg tablet Take 1 tablet by mouth every morning before breakfast on an empty stomach. 90 tablet 0 04/05/2023 09/19/2023 documented as of this encounter Miscellaneous Notes * Result Encounter Note - Susu Sevilla M.D., M.P.H. - 07/04/2023 1:02 PM CDT #1 Hyperlipidemia with LDL > 190 Resulted via portal. Lipid clinic has been ordered, but not scheduled. Recommended rosuvastatin 20mg, repeat lipids in 3 months. Likely she will need 40mg rosuvastatin. No role for repeating coronarycalcium scan (negative previously). Now that lipids > 190, recommend lifelong statin therapy. TSH in goal range. Fasting glucose normal. EKG normal. documented in this encounter Plan of Treatment Not on file documented as of this encounter Procedures Procedure Name Priority Date/Time Associated Diagnosis Comments NV-HEART CERAMIDE, P Routine 07/04/2023 9:19 AM CDT Hyperlipidemia HEMOGLOBIN A1C, B Routine 07/04/2023 9:1 9 AM CDT Hyperlipidemia GLUCOSE, FASTING, S/P Routine 07/04/2023 9:19 AM CDT Hyperlipidemia LIPID PANEL, S Routine 07/04/2023 9:17 AM CDT Hyperlipidemia THYROID FUNCTION CASCADE, S Routine 07/04/2023 9:17 AM CDT Hyperlipidemia CARDIOVASCULAR RISK MARKER PANEL, S Routine 07/04/2023 9:17 AM CDT Hyperlipidemia ASPARTATE AMINOTRANSFERASE (AST), S/P Routine 07/04/2023 9:17 AM CDT Hyperlipidemia CREATININE WITH EGFR, S/P Routine 07/04/2023 9:17 AM CDT Hyperlipidemia documented in this encounter Results * (ABNORMAL) Hemoglobin A1c (07/04/2023 9:19 AM CDT) Hemoglobin A1c, B 5.7(H) 4.2 - 5.6 % 07/04/2023 1:08 PM CDT OWAT Comment: Hemoglobin A1c values of 5.7-6.4 percent indicate an increased risk for developing diabetes mellitus. In diabetic patients, HbA1c goals should be discussed with healthcare provider. Blood (Blood, Venous) 07/04/2023 9:19 AM CDT 07/04/2023 11:42 AM CDT Susu Sevilla M.D., M.P.H. LAB BLOOD ADD-ON Performing Organization Address City/[facility]/ZIP Co de Phone Number [facility] [address] [place] [address], [facility] OW[address] [facility] [address] [place] [phone] * Glucose, Fasting (07/04/2023 9:19 AM CDT) Glucose, P 86 70 - 100 mg/dL 07/04/2023 11:53 AM CDT OWAT Last Intake 15 hr 07/04/2023 11:06 AM CDT OWAT Blood (Blood, Venous) 07/04/2023 9:19 AM CDT 07/04/2023 11:06 AM CDT Susu Sevilla M.D., M.P.H. LAB BLOOD NON ADD-ON Performing Organization Address City/[facility]/ZIP Co de Phone Number [facility] [address] [place] [address], [place] [address] [facility] [address] [place] [address] * NV-Heart Ceramide, Plasma (07/04/2023 9:19 AM CDT) NV-Heart Ceramide Risk Score 2 07/09/2023 8:03 AM CDT DTL Comment: Lower Risk. Relative cardiovascular risk is similar to baseline risk. ----REFERENCE VALUE---- 0-2 Lower Risk 3-6 Moderate Risk 7-9 Increased Risk 10-12 Higher Risk Ceramide (16:0) 0.28 0.19 - 0.36 mcmol/L 07/09/2023 8:03 AM CDT DTL Ceramide (18:0) 0.07 0.05 - 0.14 mcmol/L 07/09/2023 8:03 AM CDT DTL Ceramide (24:1) 1.39 0.65 - 1.65 mcmol/L 07/09/2023 8:03 AM CDT DTL Ceramide (16:0)/(24:0) ratio 0.06 <0.11 07/09/2023 8:03 AM CDT DTL Ceramide (18:0)/(24:0) ratio 0.02 <0.05 07/09/2023 8:03 AM CDT DTL Ceramide (24:1)/(24:0) ratio 0.31 <0.45 07/09/2023 8:03 AM CDT DTL Comment: ----ADDITIONAL INFORMATION---- Liquid Chromatography-Tandem Mass Spectrometry (LC-MS/MS) This test was developed and its performance characteristics determined by [facility] in a manner consistent with CLIA requirements. This test has not been cleared or approved by the U.S. Food and Drug Administration. Blood (Blood, Venous) 07/04/2023 9:19 AM CDT 07/05/2023 8:17 AM CDT Susu Sevilla M.D., M.P.H. LAB BLOOD NON ADD-ON [facility] [address] [place] [address], [facility] DTL [address] [place] [address] * (ABNORMAL) Cardiovascular Risk Marker Panel (07/04/2023 9:17 AM CDT) [facility] Cholesterol, LDL, Calculated 208(H) mg/dL 07/05/2023 12:50 PM CDT DTL Comment: The markedly elevated LDL level is suggestive of a genetic condition such as familial hypercholesterolemia (FH) or familial defective apolipoprotein B-100 (FDB). Molecular genetic testing for FH and FDB is available through [facility]. ----REFERENCE VALUE---- Desirable: <100 mg/dL Above Desirable: 100-129 mg/dL Borderline High: 130-159 mg/dL High: 160-189 mg/dL Very High: >=190 mg/dL ----ADDITIONAL INFORMATION---- LDL cholesterol calculated using the Suresh/NIH equation. Cholesterol, Non-HDL, Calculated 225(H) mg/dL 07/05/2023 12:50 PM CDT DTL Comment: ----REFERENCE VALUE---- Desirable: <130 mg/dL Above Desirable: 130-159 mg/dL Borderline High: 160-189 mg/dL High: 190-219 mg/dL Very High: > or =220 mg/dL Apolipoprotein B, S 143(H) mg/dL 07/05 10:46 AM CDT DTL Comment: ----REFERENCE VALUE---- Desirable: <90 Above Desirable: 90-99 Borderline high: 100-119 High: 120-139 Very high: > or = 140 Cholesterol, HDL, S 49(L) >=50 mg/dL 07/05/2023 12:50 PM CDT DTL Cholesterol, Total 274(H) mg/dL 2022 12:50 PM CDT DTL Comment: ----REFERENCE VALUE---- Desirable: < 200 mg/dL Borderline High: 200 - 239 mg/dL High: > or = 240 mg/dL Triglycerides 96 mg/dL 07/05/2023 12:50 PM CDT DTL Comment: ----REFERENCE VALUE---- Normal: <150 mg/dL Borderline High: 150-199 mg/dL High: 200-499 mg/dL Very High: > or =500 mg/dL Lipoprotein (a) 22 <75 nmol/L 07/05/2023 10:46 AM CDT DTL Comment: ----ADDITIONAL INFORMATION---- Please notice that Lp(a) values are reported in molar units (nmol/L). ??These units are recommended by professional society guidelines and expert opinion statements. ??Measured results and risk thresholds are higher than those generated using mass units (mg/dL). Cardiovascular risk increases starting at 75 nmol/L. Lp(a) >=125 nmol/L is considered a risk enhancing factor by the [place] [employer]. This test has been modified from the scada engineer's instructions. Its performance characteristics were determined by [facility] in a manner consistent with CLIA requirements. This test has not been cleared or approved by the U.S. Food and Drug Administration. C-Reactive Protein, High Sens, S 0.7 <2.0 mg/L 07/05/2023 12:50 PM CDT DTL Interpretation SEE COMMENT 12:50 PM CDT DTL Comment: ACC/AHA guidelines recommend lipid lowering therapy for patients with LDL cholesterol >=190 mg/dL. Reduced HDL-C is strongly associated with risk of cardiovascular disease. Elevated apoB >=130 mg/dL is a risk-enhancing factor for cardiovascular disease. Clinician-patient discussion of therapeutic strategy is warranted. Fasting (8 HR or more) yes 07/05/2023 12:33 PM CDT DTL Blood (Blood, Venous) 07/04/2023 9:17 AM CDT 07/05/2023 8:28 AM CDT Narrative [facility] - 07/05/2023 12:50 PM CDT Specimen Information: Specimen ID: [id number] Specimen Type: Blood Specimen Collection Start Date: 07/04/2023 ??9:17 AM Specimen Received Date: 07/05/2023 ??8:28 AM Specimen ID: [id number] Specimen Type: Blood Specimen Collection Start Date: 07/04/2023 ??9:17 AM Specimen Received Date: 07/05/2023 12:33 PM Susu Sevilla M.D., M.P.H. LAB BLOOD NON ADD-ON [facility] [address] [place] [address], [place] DTL [facility] [address] [place] [address] * Thyroid Function [place] (07/04/2023 9:17 AM CDT) TSH, Sensitive 2.6 0.3 - 4.2 mIU/L 07/04/2023 12:52 PM CDT OW[facility] Blood (Blood, Venous) 07/04/2023 9:17 AM CDT 07/04/2023 11:42 AM CDT Susu Sevilla M.D., M.P.H. LAB BLOOD ADD-ON [facility] [address] [place] [address], [facility] OWAT [facility] [address] [place] [address] * (ABNORMAL) Lipid Panel (07/04/2023 9:17 AM CDT) Triglycerides 96 mg/dL 07/04/2023 12:50 PM CDT OWAT Comment: ----REFERENCE VALUE---- Normal: <150 mg/dL Borderline High: 150-199 mg/dL High: 200-499 mg/dL Very High: > or =500 mg/dL Cholesterol, Total 262(H) mg/dL 2022 12:50 PM CDT OWAT Comment: ----REFERENCE VALUE---- Desirable: < 200 mg/dL Borderline High: 200 - 239 mg/dL High: > or = 240 mg/dL Cholesterol, LDL, Calculated 196(H) mg/dL 07/04/2023 12:50 PM CDT OW[facility] Comment: The markedly elevated LDL level is suggestive of a genetic condition such as familial hypercholesterolemia (FH) or familial defective apolipoprotein B-100 (FDB). Molecular genetic testing for FH and FDB is available through [facility] [employer]. ----REFERENCE VALUE---- Desirable: <100 mg/dL Above Desirable: 100-129 mg/dL Borderline High: 130-159 mg/dL High: 160-189 mg/dL Very High: >=190 mg/dL ----ADDITIONAL INFORMATION---- LDL cholesterol calculated using the Suresh/NIH equation. Cholesterol, HDL 49(L) >=50 mg/dL 07/04/20 12:50 PM CDT OWAT Cholesterol, Non-HDL, Calculated 213(H) mg/dL 07/04/2023 12:50 PM CDT OW[facility] Comment: ----REFERENCE VALUE---- Desirable: <130 mg/dL Above Desirable: 130-159 mg/dL Borderline High: 160-189 mg/dL High: 190-219 mg/dL Very High: > or =220 mg/dL Fasting (8 HR or more) yes 07/04/2023 11:42 AM CDT OW[facility] Blood (Blood, Venous) 07/04/2023 9:17 AM CDT 07/04/2023 11:42 AM CDT Susu Sevilla M.D., M.P.H. LAB BLOOD ADD-ON [facility] [address] [place] [address], [facility] OWAT [facility] [address] [place] [address] * Creatinine with Estimated GFR (07/04/2023 9:17 AM CDT) Creatinine 0.84 0.59 - 1.04 mg/dL 07/04/2023 12:50 PM CDT OWAT Estimated GFR (eGFR) 79 >=60 mL/min/BSA 07/04/2023 12:50 PM CDT OWAT Comment: Estimated GFR calculated using the 2020 CKD_EPI creatinine equation. Blood (Blood, Venous) 07/04/2023 9:17 AM CDT 07/04/2023 11:42 AM CDT Susu Sevilla M.D., M.P.H. LAB BLOOD ADD-ON [facility] [address] [place] [address], [facility] [address] [place] [address] * AST (Aspartate Aminotransferase) (07/04/2023 9:17 AM CDT) Aspartate Aminotransferase (AST), P 31 8 - 43 U/L 07/04/2023 12:50 PM CDT OW[facility] Blood (Blood, Venous) 07/04/2023 9:17 AM CDT 07/04/2023 11:42 AM CDT Susu Sevilla M.D., M.P.H. LAB BLOOD ADD-ON Performing Organization Address [facility] Co de Phone Number [facility] [address] [place] [address], [facility] [address] [place] [address] documented in this encounter Visit Diagnoses Diagnosis Hyperlipidemia documented in this encounter Care Teams Polarity Tester Relationship Specialty Start Date End Date Aminata Coe P.A.-C. [address] [place] [address] [place] [phone] PCP - General Internal Medicine 09/26/22 documented as of this encounter
--- OUTSIDE RECORDS SUMMARY | 2023-10-23 07:07 | XMS_ITS | Encounter Summary ---
Author Name Unknown Organization [facility] Address [address] [place] [address] Care Team Providers Care Drum Sprayer Name Role Phone Aminata Coe P.A.-C. Primary Care Provider Reason for Visit * Reason Comments Med Refill Encounter Details Date Type Department Care Team (Late st Contact Info) Description 09/18/2023 Refill Department of Community Internal Medicine in [place], [place] [address] [place] [address] Harley Barillas P.A.-C., P.A. [address] [place] [address] Med Refill Social History Tobacco Use Types Packs/Day Years [...] How often do you attend sikh or voodoo serv ices? Never 07/21/2020 Do you belong [...] Answer Date Recorded PHQ-2 Score 0 01/31/2022 [facility] - [...] your living situation today? I have a [facility] place to live 08/02/2023 Education Answer [...] AM CDT documented as of this encounter Miscellaneous Notes * Telephone Encounter - Evie Monroe - 09/19/2023 7:29 AM CST Lab Results Component Value Date TSH 2.6 07/04/2023 ON STRIPPER documented in this encounter Plan of Treatment Not on file documented as of this encounter Visit Diagnoses Not on filedocumented in this encounter Care Teams Drum Sprayer Relationship Specialty Start Date End Date Aminata Coe P.A.-C. [address] [place] [phone] PCP - General Internal Medicine 09/26/22 documented as of this encounter
--- OUTSIDE RECORDS SUMMARY | 2023-10-23 07:07 | XMS_ITS | Encounter Summary ---
Author Name Unknown Organization [facility] Address [address] [place] [address] Care Team Providers Care Payroll Secretary Name Role Phone Aminata Coe P.A.-C. Primary Care Provider Reason for Visit * Reason Onset Date Comments CV FH Coord 08/16/2023 Encounter Details Date Type Department Care Team (Late st Contact Info) Description 08/16/2023 Clinical Communication Department of Medical Genetics in [place], [place] [address] [place] [address] Clifton Whitman [address] [place] [address] CV Coord Social History Tobacco Use Types Packs/Day Years [...] week 07/21/2020 How often do you attend hindu or muslim serv ices? Never 07/21/2020 Do you belong to any clubs o r organizations such as hindu groups, unions, fraternal or athletic groups, or [...] Answer Date Recorded PHQ-2 Score 0 01/31/2022 [facility] Occupat [facility] Health - Occupational Stress [...] your living situation today? I have a [facility] place to live 08/02/2023 Education Answer [...] encounter Miscellaneous Notes * Telephone Encounter - Clifton Whitman - 08/22/2023 12:58 PM CST Pt didn't read/respond to POM - need to call F BANK EXAMINER documented in this encounter Plan of Treatment Not on file documented as of this encounter Visit Diagnoses Not on filedocumented in this encounter Care Teams Payroll Secretary Relationship Specialty Start Date End Date Aminata Coe P.A.-C. [address] [place], [place] [address] [phone] PCP - General Internal Medicine 09/26/22 documented as of this encounter
--- OUTSIDE RECORDS SUMMARY | 2023-10-23 07:07 | XMS_ITS | Encounter Summary ---
Author Name Unknown Organization [facility] Address [address] [place] [address] Care Team Providers Care Security Professional Name Role Phone Aminata Coe P.A.-C. Primary Care Provider Encounter Details Date Type Department Care Team (Latest Contact Info) Description 10/05/2023 9:00 AM REAL ESTATE ADMINISTRATOR Virtual Visit Department of Medical Genetics in [place], [place] [address] [place] [address] Clifton Whitman [address] [place] [address] Hyperlipidemia (Primary Dx) Social History Tobacco Use Types Packs/Day Years [...] week 07/21/2020 How often do you attend mandaeism or christianity serv ices? Never 07/21/2020 Do you belong to any clubs o r organizations such as mandaeism groups, unions, fraternal or athletic groups, or [...] Answer Date Recorded PHQ-2 Score 0 01/31/2022 [facility] - Occupational Stress Questionnaire Answer Date [...] your living situation today? I have a [facility] place to live 08/02/2023 Education Answer Date [...] as of this encounter Progress Notes * Clifton Whitman - 10/05/2023 9:00 AM CST Images from the original note were not included. CHIEF COMPLAINT/PURPOSE OF VISIT Visit to facilitate genetic testing on behalf of Eliane Trejo APRN. IMPRESSION/REPORT/PLAN #1 Facilitation of Familial Hypercholesterolemia Panel from [employer]. On behalf of Eliane Trejo APRN, I had a conversation with Reshma to facilitate genetic testing forthe Familial Hypercholesterolemia genetic testing panel offered through [facility]. We reviewed the three possible results that could be obtained from the the panel, including the following: Negative: Normal, or no disease-causing variants are identified in the genes that are tested. Positive: A disease-causing variant that is known to be associated with high cholesterol is identified. Variant of Uncertain Significance (VUS): A variant in a gene was identified, but it is not known ifit causes disease. FAMILY HISTORY A expanded family history, was obtained from the patient and a pedigree was constructed by the Genetic Counseling Medical Massage Therapist. Our risk assessment is based upon medical and family history information as provided by the patient and may change in the future should new information be obtained. Pedigree Image Are there any other family members with: A diagnosis of High Cholesterol: Yes A history of Heart Attack: Yes The patient???s maternal ancestry is Eastern ; the patient???s paternal ancestry is . There is no known Montenegrin ancestry. There is no consanguinity. BILLING INFORMATION Approximate cost and insurance coverage of genetic testing was discussed. [facility] is not involved in the billing for the genetic testing. We recommend all questions and correspondence be directedto [facility]'s billing department. All patients in the [place] will receive an email and/or text describing the insurance billing process. If a patient owes more than $100 after insurance processes their claim, an [facility] redevelopment specialist will proactively call to discuss their options. Billing options include our newly revised patient assistance program, which now offers maximum [id number] costs instead of a percent discount - so patients can more clearly see what they will owe. [facility] billing specialists are happy to work with patients who receive a bill for less than $100 but still need assistance. They can simply call [facility] at [phone] Sunday through Sunday, 5:00 am to 5:00 pm [place], or email us anytime at [email or web address]. [facility] patient billing postcard [facility] Billing landing page [facility] online projection technician PLAN I will follow up with the patient in 4-5 weeks. PATIENT EDUCATION All of the above was explained in detail with the patient who verbalized understanding. There were no apparent barriers to learning and understanding. The patient's questions were answered to the best of my ability. Electronically signed by Mireille Muhammad M.S., [facility] at 10/05/2023 1:22 PM REAL ESTATE ADMINISTRATOR documented in this encounter Plan of Treatment Not on file documented as of this encounter Visit Diagnoses Diagnosis Hyperlipidemia- Primary documented in this encounter Care Teams Security Professional Relationship Specialty Start Date End Date Aminata Coe P.A.-C. [address] [place] [phone] PCP - General Internal Medicine 09/26/22 documented as of this encounter
--- OUTSIDE RECORDS SUMMARY | 2023-10-23 07:07 | XMS_ITS | Encounter Summary ---
Author Name Unknown Organization [facility] Address [address] [place] [address] Care Team Providers Care Dress Operator Name Role Phone Aminata Coe P.A.-C. Primary Care Provider Encounter Details Date Type Department Care Team (Latest Contact Info) Description 08/02/2023 9:22 AM CDT - 08/02/2023 11:59 PM CDT Hospital Encounter Department of Laboratory Medicine and Pathology, [facility] in [place], [place] [address] [place] [address] Eliane Trejo APRN, C.N.P., M.S.N. [address] [place] [phone] Hyperlipidemia Discharge Disposition: Home or Self Care [...] week 07/21/2020 How often do you attend alevism or baptist serv ices? Never 07/21/2020 Do you belong to any clubs o r organizations such as alevism groups, unions, fraternal or athletic groups, or [...] Answer Date Recorded PHQ-2 Score 0 01/31/2022 [facility] [place] of Occupat ional Health - Occupational Stress [...] your living situation today? I have a ean place to live 08/02/2023 Education Answer Date [...] 04/05/2023 09/19/2023 documented as of this encounter Plan of Treatment Not on file documented as of this encounter Procedures Procedure Name Priority Date/Time Associated Diagnosis Comments CRYOPRESERVATION FOR MOLEC STUDIES Routine 08/02/2023 9:42 AM CDT Hyperlipidemia documented in this encounter Results * Cryopreservation for Molecular [...] is not a DNA banking service. If custodial, guaranteed specimen storage is required, DNA banking should be considered. The Genomic Extraction Core extracted DNA. DNA Volume (microliters): ??500+ Please review the following table to determine the possible number of tests that can be added for send out testing. DNA (ul) ? Possible Send Outs (~120 ul) <100 ? Recommend Redraw 100 ?1 250 ?2 500 ?4 08/09/2023 10:27 PM ICE MAKER DTL Specimen WB Whole Blood 08/09/2023 10:27 PM ICE MAKER DTL Released By JENNADORA ARENAS 08/09/2023 10:27 PM ICE MAKER DTL Blood (Blood, Venous) 08/02/2023 9:42 AM CDT 08/02/2023 10:37 AM CDT Eliane Trejo APRN C.N.P., M.S.N. LAB GENETIC TESTING [facility] - [facility] [address] [place] [address], [facility] [address] [place] [address] documented in this encounter Visit Diagnoses Diagnosis Hyperlipidemia documented in this encounter Care Teams Dress Operator Relationship Specialty Start Date End Date Aminata Coe P.A.-C. [address] [place] [phone] PCP - General Internal Medicine 09/26/22 documented as of this encounter
--- OUTSIDE RECORDS SUMMARY | 2023-10-23 07:07 | XMS_ITS | Encounter Summary ---
Author Name Unknown Organization [facility] Address [address] [place] [address] Care Team Providers Care Transformation Specialist Name Role Phone Aminata Coe P.A.-C. Primary Care Provider Encounter Details Date Type Department Care Team (Late st Contact Info) Description 07/04/2023 Orders Only Division of Community Internal Medicine at [facility] [address] [place] [address] Susu Sevilla M.D., M.P.H. Hyperlipidemia (Primary Dx) Social History Tobacco Use [...] week 07/21/2020 How often do you attend hoahaoism or samaritan serv ices? Never 07/21/2020 Do you belong to any clubs o r organizations such as hoahaoism groups, unions, fraternal or athletic groups, or [...] Answer Date Recorded PHQ-2 Score 0 01/31/2022 [facility] Occupat ional Health - Occupational Stress [...] AM CDT documented as of this encounter Plan of Treatment Scheduled Orders Name Type Priority Associated Diagnoses Orde r Schedule Lipid Panel Lab Routine Hyperlipidemia Expected: 10/04/2023 (Approximate), Expires: 07/04/2024 documented as of this encounter Visit Diagnoses Diagnosis Hyperlipidemia- Primary documented in this encounter Care Teams Transformation Specialist Relationship Specialty Start Date End Date Aminata Coe P.A.-C. [address] [place], [place] [address]AYALA Bowen [phone] PCP - General Internal Medicine 09/26/22 documented as of this encounter
--- OUTSIDE RECORDS SUMMARY | 2023-10-23 07:07 | XMS_ITS | Encounter Summary ---
Author Name Unknown Organization [facility] Address [address] [place] [address] Care Team Providers Care Quality Assurance Supervisor Final Name Role Phone Aminata Coe P.A.-C. Primary Care Provider Reason for Referral * Outpatient (Routine) - Closed Specialty Diagnoses / Procedures Referred By Contac t Referred To Contact Diagnoses Hyperlipidemia Procedures ECG 12 Lead Susu Sevilla M.D., M.P.H. [address] [place] [phone] [facility] Referral ID Status Reason Start Date Expiration Date Visits Re quested Visits Authorized [id number] Closed 06/28/2023 06/27/2024 1 1 Reason for Visit * Outpatient (Routine) - Closed Specialty Diagnoses / Procedures Referred By Contmukund t Referred To Contact Diagnoses Hyperlipidemia Procedures ECG 12 Lead Susu Sevilla M.D., M.P.H. [address] [place] [phone] [facility] Referral ID Status Reason Start Date Expiration Date Visits Re quested Visits Authorized [id number] Closed 06/28/2023 06/27/2024 1 1 Encounter Details Date Type Department Care Team (Latest Contact Info) Description 07/04/2023 8:49 AM CDT - 07/04/2023 11:59 PM CDT Hospital Encounter Department of Laboratory Medicine in [place] [address] [place] [phone] Susu Sevilla M.D., M.P.H. Hyperlipidemia Discharge Disposition: [...] week 07/21/2020 How often do you attend yazdanism or temple serv ices? Never 07/21/2020 Do you belong to any clubs o r organizations such as yazdanism groups, unions, fraternal or athletic groups, or [...] Answer Date Recorded PHQ-2 Score 0 01/31/2022 [facility] [place] of Occupat ional Health - Occupational Stress [...] Procedure Name Priority Date/Time Associated Diagnosis Comments ECG Routine 07/04/2023 9:04 AM CDT Hyperlipidemia documented in this encounter Results * ECG 12 Lead (07/04/2023 9:04 AM CDT) Ventricular Rate ECG/Min 60 BPM MUSE GA Interval 132 ms MUSE QRSD Interval 82 ms MUSE QT Interval 428 ms MUSE QTC Interval 428 ms MUSE P [place] 59 degrees MUSE R [place] 81 degrees MUSE T Wave [place] 48 degrees MUSE 07/04/2023 9:04 AM CDT 07/04/2023 9:24 AM CDT Impressions MUSE - 07/04/2023 9:24 AM CDT Normal sinus rhythm Normal ECG When compared with ECG of 16-APR-2018 11:07, No significant change was found Reviewed by WINSOME Calderon Narrative Procedure Note Contreras Powell M.D. - 07/04/2023 IMPRESSION: Normal sinus rhythm Normal ECG When compared with ECG of 16-APR-2018 11:07, No significant change was found Reviewed by WINSOME Calderon Susu Sevilla M.D., M.P.H. ECG ORDER KATY MUSE NA documented in this encounter Visit Diagnoses Diagnosis Hyperlipidemia documented in this encounter Care Teams Quality Assurance Supervisor Final Relationship Specialty Start Date End Date Aminata Coe P.A.-C. [address] [place] [address] [place] [phone] PCP - General Internal Medicine 09/26/22 documented as of this encounter
--- OUTSIDE RECORDS SUMMARY | 2023-10-23 07:07 | XMS_ITS | Encounter Summary ---
Author Name Unknown Organization [facility] Address [address] [place] [address] Care Team Providers Care Spring Setter Name Role Phone Aminata Coe P.A.-C. Primary Care Provider Reason for Referral * Outpatient (Routine) - Authorized Specialty Diagnoses / Procedures Referred By Contac t Referred To Contact Diagnoses Screening Mammogram Breast Cancer Procedures BI Breast Screening Bilateral with Tomosynthesis Aminata Coe P.A.-C. [address] [place] [address] [facility] Referral ID Status Reason Start Date Expiration Date V isits Requested Visits Authorized [id number] Authorized 10/02/2023 10/01/2024 1 1 [employer] SALES MANAGER Encounter Details Date Type Department Care Team (Late st Contact Info) Description 10/02/2023 Orders Only [facility] PCP [facility] Aminata Coe P.A.-C. [address] [place] [address] Screening Mammogram Breast Cancer Social History Tobacco Use Types Packs/Day Years Used Date Smoking Tobacco: Never Smokeless Tobacco: Never Alcohol Use Standard Drinks/Week Comments Yes 0 (1 standard drink = 0.6 oz pur e alcohol) 1-2 per week Humiliation, Afraid, Rape, and Kick questionnair e Answer Date Recorded Fear of Current or Ex-Partner No 10 / Emotionally Abused No 07/21/2020 Physically Abused No 07/21/2020 Sexually Abused No 07/21/2020 Social Connection and Isolation Panel [NHANES] A nswer Date Recorded Frequency of Communication with Friends and Fami ly Not on file 07/21/2020 How often do you get together with friends or re latives? Twice a week 07/21/2020 How often do you attend anabaptist or oriental orthodox serv ices? Never 07/21/2020 Do you belong to any clubs o r organizations such as anabaptist groups, unions, fraternal or athletic groups, or [...] your living situation today? I have a [facility] place to live 08/02/2023 Education Answer [...] Scheduled Orders Name Type Priority Associated Diagnoses Order Schedule BI Breast Screening Bilateral with Tomosynthesis Imaging RAD - Routine (most inpatients and all outpatients) Screening Mammogram Breast Cancer Expected: 11/01/2023, Expires: 03/30/2024 documented as of this encounter Visit Diagnoses Diagnosis Screening Mammogram Breast Cancer documented in this encounter Care Teams Spring Setter Relationship Specialty Start Date End Date Aminata Coe P.A.-C. [address] [place] [phone] PCP - General Internal Medicine 09/26/22 documented as of this encounter
--- OUTSIDE RECORDS SUMMARY | 2023-10-23 07:07 | XMS_ITS | Encounter Summary ---
Author Name Unknown Organization [facility] Address [address] [place] [address] Care Team Providers Care Night Supervisor Name Role Phone Aminata Coe P.A.-C. Primary Care Provider Reason for Visit * Reason Onset Date Comments Results 08/15/2023 Test results fro m Aug 02 Encounter Details Date Type Department Care Team (Latest Contact Info) Description 08/15/2023 Clinical Communication Department of Cardiovascular Medicine in [place], [place] [address] [place] [address] Eilane Trejo APRN, C.N.P., M.S.N. [address] [place] [phone] Results (Test results from Aug 02) Social History Tobacco Use Types Packs/Day Years [...] week 07/21/2020 How often do you attend scientologist or christian serv ices? Never 07/21/2020 Do you belong to any clubs o r organizations such as scientologist groups, unions, fraternal or athletic groups, or [...] Answer Date Recorded PHQ-2 Score 0 01/31/2022 [facility] of Occupat ional Health - Occupational [...] on filedocumented in this encounter Care Teams Night Supervisor Relationship Specialty Start Date End Date Aminata Coe P.A.-C. [address] [place] [address] [place] [phone] PCP - General Internal Medicine 09/26/22 documented as of this encounter
--- OUTSIDE RECORDS SUMMARY | 2023-10-23 07:08 | XMS_ITS | Encounter Summary ---
Author Name Unknown Organization [facility] Address [address] [place] [address] Care Team Providers Care Safety Patrol Officer Name Role Phone Aminata Coe P.A.-C. Primary Care Provider Encounter Details Date Type Department Care Team (Late st Contact Info) Description 10/18/2022 Orders Only [facility] PCP [facility] MNT Delmy Boyd Screening Cancer Colon Social History Tobacco Use Types Packs/Day Years [...] week 07/21/2020 How often do you attend synagogue or oriental orthodox serv ices? Never 07/21/2020 Do you belong to any clubs o r organizations such as synagogue groups, unions, fraternal or athletic groups, or school groups? No 07/21/2020 How often do you attend meet ings of the clubs or organizations you belong to? Never 07/21/2020 Marital Status Not on file 07/21/2020 AUDIT-C Answer Date Recorded Frequency of Alcohol Consumption 2-3 times a soni aldrich 07/21/2020 Average Number of Drinks 1 or 2 020 Frequency of Binge Drinking Never 07/02 Overall Financial Resource Strain (CARDIA) Answe r Date Recorded Difficulty of Paying Living Expenses Not hard at all 07/21/2020 PHQ-2 Answer Date Recorded PHQ-2 Score 0 01/31/2022 [facility] of Occupat ional Health - Occupational [...] Date Recorded Nutrition: EVOO Fat Source No 10/03 Nutrition: Servings of Fruits/Vegetables per Day Not on file 10/03/2022 Dental Answer Date Recorded Dental: Regular Dentist [...] Procedure Name Priority Date/Time Associated Diagnosis Comments COLOGUARD Routine 10/23/2022 7:00 AM TECHNICAL SUPPORT INTERN Screening Cancer Colon documented in this encounter Results * Cologuard-Sent Out Lab (10/23/2022 7:00 AM TECHNICAL SUPPORT INTERN) Result Negative Negative 10/27/2022 5:39 PM TECHNICAL SUPPORT INTERN EXLI Comment: NEGATIVE TEST RESULT. A negative Cologuard result indicates a low likelihood that a colorectal cancer (CRC) or advanced adenoma (adenomatous polyps with more advanced pre-malignant features) ??is present. The chance that a person with a negative Cologuard test has a colorectal cancer is less than 1 in 1500 (negative predictive value >99.9%) or has an ??advanced adenoma is less than ??5.3% (negative predictive value 94.7%). These data are based on a prospective cross-sectional study of 10,000 individuals at average risk for colorectal cancer who were screened with both Cologuard and colonoscopy. (Juanita Oates et al, N Engl J Med 2014;370(14):6365-3785) The normal value (reference range) for this assay is negative. COLOGUARD RE-SCREENING RECOMMENDATION: Periodic colorectal cancer screening is an important part of preventive healthcare for asymptomatic individuals at average risk for colorectal cancer. ??Following a negative Cologuard result, the [place] [employer] Society and U.S. Multi-Society Task Force screening guidelines recommend a Cologuard re-screening interval of 3 years. References: [place] [employer] Guideline for Colorectal Cancer Screening: https://www.cancer.org/cancer/jqdcn-lysrxa-ieaqwa/detection- diagnosis-staging/acs-recommendations.html.; Jose DK, Du HOLLINS, Mara TownsendK, Colorectal Cancer Screening: Recommendations for Physicians and Patients from the U.S. Multi-Society Task Force on Colorectal Cancer Screening , Am J Gastroenterology 2017; 112:6974-0718. TEST DESCRIPTION: Composite algorithmic analysis of stool DNA-biomarkers with hemoglobin immunoassay. ?? Quantitative values of individual biomarkers are not reportable and are not associated with individual biomarker result reference ranges. Cologuard is intended for colorectal cancer screening of adults of either sex, 45 years or older, who are at average-risk for colorectal cancer (CRC). Cologuard has been approved for use by the U.S. FDA. The performance of Cologuard was established in a cross sectional study of average-risk adults aged 50-84. Cologuard performance in patients ages 45 to 49 years was estimated by sub-group analysis of near-age groups. Colonoscopies performed for a positive result may find as the most clinically significant lesion: colorectal cancer [4.0%], advanced adenoma (including sessile serrated polyps greater than or equal to 1cm diameter) [20%] or non- advanced adenoma [31%]; or no colorectal neoplasia [45%]. These estimates are derived from a prospective cross-sectional screening study of 10,000 individuals at average risk for colorectal cancer who were screened with both Cologuard and colonoscopy. (Juanita Iglesias al, N Engl J Med 2014;370(14):0701-9258.) Cologuard may produce a false negative or false positive result (no colorectal cancer or precancerous polyp present at colonoscopy follow up). A negative Cologuard test result does not guarantee the absence of CRC or advanced adenoma (pre-cancer). The current Cologuard screening interval is every 3 years. ([place] [employer] and U.S. Multi-Society Task Force). Cologuard performance data in a 10,000 patient pivotal study using colonoscopy as the reference method can be accessed at the following location: www.[employer]/results. Additional description of the Cologuard test process, warnings and precautions can be found at www.cologuard.com. Stool (Stool) 10/23/2022 7:0 0 AM TECHNICAL SUPPORT INTERN 10/24/2022 1:53 PM TECHNICAL SUPPORT INTERN Aminata Coe P.A.-C. LAB BODY FLUIDS AND STOOLS ORDERABLES [facility] [address] [place] [address] [facility] [address] [facility], [address] [place] [address] documented in this encounter Visit Diagnoses Diagnosis Screening Cancer Colon documented in this encounter Care Teams Safety Patrol Officer Relationship Specialty Start Date End Date Aminata Coe P.A.-C. [address] [place] [address] [place] [phone] PCP - General Internal Medicine 09/26/22 documented as of this encounter
--- OUTSIDE RECORDS SUMMARY | 2023-10-23 07:08 | XMS_ITS | Encounter Summary ---
Author Name Unknown Organization [facility] Address [address] [place] [address] Care Team Providers Care Returned Item Clerk Name Role Phone Albania Zavala MD Primary Care Provider [phone] Reason for Visit * Reason Comments Skin Check Patient presents for skin cancer screening. Spots of concern: Spot on back of left leg, dark spot under chin, recheck of face (patient states she did a treatment), raised spot on right posterior hip. Last FBE: 06/23/2022Last biopsy/treatment: 10/18/2022 - SK right upper backPrevious skin hx: Melanoma right breast in 2004, DN Encounter Details Date Type Department Care Team Description 06/22/2023 10:30 AM CDT Office Visit [facility] [address] [place] [address] Michelle Shelton MD [address] [place] [id number] Diffuse photodamage of skin (Primary Dx); Tran angioma; History of melanoma; Seborrheic keratosis; Skin cancer screening; Multiple benign nevi; History of dysplastic nevus; Lentigines; Neoplasm of skin (HRC) Social History Tobacco Use Types Packs/Day Years Used Date Smoking Tobacco: Never Smokeless Tobacco: Never Alcohol Use Standard Drinks/Week Comments No 0 (1 standard drink = 0.6 oz pur e alcohol) Sex and Gender Information Value Date Recorded Sex Assigned at Not on file Gender Identity Not on file Sexual Orientation Not on file documented as of this encounter Patient Instructions * Patient Instructions* Michelle Quintanilla Grzegorz, DECLAN - 06/22/2023 10:30 AM CDT Follow up instructions: Care Instructions after a shave skin biopsy/removal When do I start changing the bandage on my wound site? Leave the original bandage/dressing in place for 24 to 48 hours. If you develop bleeding from the site, apply firm pressure directly over the bandage, using the heel of your hand, for [address] bandage on top of the first one - don't keep removing and replacing dressings. NO PEEKING! Notify us if the bleeding still does not stop. How do I change the bandage on my wound? Clean the area once a day with warm soap and water. Gently pat dry the area. After the area has been cleaned and is dry, apply a small amount of petroleum jelly or Aquaphor healing ointment and apply a new bandage. We prefer that you do not use an antibacterial ointment (i.e. bacitracin, Neosporin) as many peopledevelop a hypersensitivity including a rash and even blistering related to these. Is it okay to shower after having a skin biopsy/removal? Showering is okay, but please do not soak in a bathtub, hot tub, or pool. This will slow the healing process and may create infection. When can I stop bandaging my wound? Continue the wound care process until the area is healed. Complete healing usually takes 2-4 weeks.Wounds heal best when kept moist, try not to let the area dry out. During this process you may see a white film develop over your wound and this is part of the normal healing process. Letting them open to air, drying out, and having a scab form actually causes wounds to take longer to heal. If yourskin is getting sensitive to the bandage, use gauze and paper tape. Can I exercise after having a skin biopsy/removal? Avoid exercising for 2 days. What signs or symptoms should I call the dermatology department about? Infection after a biopsy is not likely, but can occur. Mild amounts of redness, bruising, swelling,discomfort and a clear to yellowish to blood-tinged discharge are normal. Signs of Infection include: fever, increasing pain, blood blister, drainage of pus, and extreme heat from the site. Please call the clinic if you experience any of these symptoms. When will I receive my skin biopsy/removal results? Your skin biopsy specimen will be sent to our laboratory for processing. Your clinician will contact you with the results of this pathology report when it is available. Typically you will be contacted 7 to 14 days after your biopsy or procedure. Our pathology services will be listed separately on your bill. If you have further questions about the biopsy process or if you have not received your biopsy results within 2 weeks, please call the clinic. Dr. Salinas's Recommendations: 1. Apply a broad spectrum sunscreen- at least a spf 30 2. Apply 20 minutes before going outside. 3. Reapply every 2 hours. 4. Make sure to get enough on the skin. Ie. 1 oz. To cover an entire adult skin. 5. Recommend sun protective clothing, including a broad brimmed hat. SunBlock Recommendations Face sunscreen: Mike Barry Physical Protection SPF 50 La Nahed-Posay Anthelios Ultra Light Mineral Sunscreen Available on dermstore.[place]oo Body: Cotz - Great for body. Available on dermstore.com and at [employer]. Look for products that contain zinc oxide and or titanium dioxide. La Nahed Posay: -- Cooling Lotion Water Sunscreen, spf 60 -- Tinted liquid sunscreen. Daryl FIGUEROA Good creams that contain ceramides for dry skin care: -CeraVe cream -Eucerin Eczema Relief -Aveeno Eczema Care -Curel Advanced Care -Cetaphil Restoraderm -Eucerin Professional Repair Cream Other good creams: For dry, rough skin: Amlactin lotion For itchy, dry skin: Sarna lotion For very sensitive, allergy-prone skin: Nain These are all OTC ([id number])! documented in this encounter Progress Notes * Michelle Shelton MD - 06/22/2023 10:30 AM CDT Problem List Dermatology Problems Personal history of malignant melanoma of skin Overview Right breast, s/p excision at [facility] 2004 History of dysplastic nevus Overview DN, moderate atypia, right lateral thigh, s/p excision 05/2018. Chief Complaint Patient presents with Skin Check Patient presents for skin cancer screening. Spots of concern: Spot on back of left leg, dark spot under chin, recheck of face (patient states she did a treatment), raised spot on right posterior hip. Last FBE: 06/23/2022 Last biopsy/treatment: 10/18/2022 - SK right upper back Previous skin hx: Melanoma right breast in 2004, DN History of Present Illness: Reshma Nielsen is a 63 y.o. female with a history of melanoma and DN who presents to clinic today for a full body skin exam. She full skin check. She has a scattered spots that she would like examined. She also has a history of psoriasis and has 1 spot on her scalp. Past Medical History: History of melanoma, right breast, s/p excision at [facility] 2004 DN, moderate atypia, right lateral thigh, s/p excision 05/2018. AKs- s/p efudex/calcipotriene to face Family History: Per patient, mother had spotty skin. Social History: She works as a relator. No history of jobs where she has spent large amounts of time outdoors. Medications: The patient has a current medication list which includes the following prescription(s): fluocinolone acetonide scalp, fluocinonide, hydroquinone, levothyroxine, fish oil, and valacyclovir. Allergies: The patient is allergic to latex. Review of Systems: Patient denies any fevers, chills, nightsweats, weight changes, shortness of breath, chest pain, nausea, vomiting, constipation, diarrhea, abdominal pain, hematuria, hematochezia, melena, notable masses or tumors. Physical Examination: General: Well-appearing female, in no distress, alert and oriented. Skin: Full body skin exam performed including the head, neck, chest, back, abdomen, arms, legs, buttocks, genitals were examined with remarkable findings outlined in the assessment and plan. Exam otherwise was normal. Derm Findings, Assessment and Plan: #. History of melanoma, right breast, s/p excision at [facility] 2004. -- Well healed scar on right breast. -- No evidence of any recurrence. Discussed ongoing sun protection and ongoing routine skin exams with the patient. Recommended returning to clinic every 12 months for ongoing skin checks. #. History of dysplastic nevus as noted above -- Well healed scars at right lateral thigh. -- No evidence of any recurrence. Discussed ongoing sun protection and ongoing routine skin exams with the patient. # Chronic Sun Damage as evidence by Solar Lentigines -- Scattered brown macules with moth eaten borders under dermoscopy located on the trunk and extremities. -- Benign nature discussed. -- Discussed ongoing sun protection including high spf sunscreen and sun protective clothing. # Multiple Benign Nevi, Seborrheic keratoses & Tran Angiomas -- There are scattered 2-4mm brown macules with a reticulated and homogenous pigment networks located on the trunk and extremities. -- Waxy appearing stuck on papules, located trunk and extremities. -- Red dome shaped papules with vascular lacunae under dermoscopy located trunk and extremities, including pt concern on left oriental orthodox at hairline -- Macular seborrheic keratosis on the left lower leg -- Right buttock small 4 mm fleshy papule c/w a dermal nevus The benign nature of lesions discussed, reassurance provided. #. Scalp psoriasis --red scaly patch on the left temporal scalp Okay to continue fluocinonide solution but will add in [place] smooth oil to be applied once a week. # Acneform papule - 2 mm nondescript acneiform pink papule, right upper cutaneous lip Appears benign today. No concerning features for malignancy. I recommended monitoring this area butif it is still present in months she should certainly let me know Follow up: Return to clinic in 1 year for full body skin exam, sooner for new concerns. documented in this encounter Plan of Treatment Upcoming Encounters Date Type Department Care Team Description 06/24/2024 10:15 AM CDT Appointment [facility] [address] [place] [address] Michelle Shelton MD [address] [place] [address] documented as of this encounter Procedures Procedure Name Priority Date/Time Associated Diagnosis Comments EPIDERMAL / DERMAL SHAVING Routine 06/22/2023 11:00 AM CDT Neoplasm of skin (HRC) EPIDERMAL / DERMAL SHAVING Routine 06/22/2023 10:59 AM CDT Neoplasm of skin (HRC) SURGICAL PATHOLOGY, DERMATOLOGY Routine 06/22/2023 10:59 AM CDT Neoplasm of skin (HRC) documented in this encounter Results * Shave removal (06/22/2023 11:00 AM CDT) Narrative EXTERNAL RESULTS - 06/22/2023 11:00 AM CDT Lesion diameter (cm): ??0.4 Informed consent: discussed and consent obtained ?? Timeout: patient name, date of , surgical site, and procedure verified ?? Anesthesia: the lesion was anesthetized in a standard fashion ?? Anesthetic: ??1% lidocaine plain local infiltration Instrument used: DermaBlade ?? Hemostasis achieved with: aluminum chloride ?? Outcome: patient tolerated procedure well ?? Outcome comment: ??The lesion was removed in it's clinical entirety. Post-procedure details: wound care instructions given ?? Michelle Bond MD DERM PROCEDURE OR DERABLES EXTERNAL RESULTS * Shave removal (06/22/2023 10:59 AM CDT) Narrative EXTERNAL RESULTS - 06/22/2023 10:59 AM CDT Lesion diameter (cm): ??0.3 Informed consent: discussed and consent obtained ?? Timeout: patient name, date of , surgical site, and procedure verified ?? Anesthesia: the lesion was anesthetized in a standard fashion ?? Anesthetic: ??1% lidocaine plain local infiltration Instrument used: DermaBlade ?? Hemostasis achieved with: aluminum chloride ?? Outcome: patient tolerated procedure well ?? Outcome comment: ??The lesion was removed in it's clinical entirety. Post-procedure details: wound care instructions given ?? Michelle Bond MD DERM PROCEDURE OR DERABLES EXTERNAL RESULTS * Surgical Path, Dermatology (06/22/2023 10:59 AM CDT) Case Report Surgical Pathology Report ? Case: [id number] ? Authorizing Provider: ??Michelle Shelton MD ?? Collected: ? 06/22/2023 1059 ? Ordering Location: ? [place] [id number] ? Received: ?06/22/2023 1349 ? Dermatology ? Pathologist: ? Janelle Nath MD ? Specimens: ?? A) - Skin, Right Popliteal Fossa ? B) - Skin, Right Thigh - Posterior ? 06/29/2023 2:46 PM [facility] [address] DERMATOLOGY FINAL DIAGNOSIS A. Skin, Right Popliteal Fossa, shave: - Two adjacent junctional dysplastic nevi with mild atypia; margins free in the plane of sections studied. B. Skin, Right Thigh - Posterior, shave: - Nevus lipomatosus superficialis. 06/29/2023 2:46 PM T [facility] [address] DERMATOLOGY Clinical Information A: Clinical Impression: DN Objective: 3 mm brown macule with a closely approximated 2 mm brown macule B: Clinical Impression: irritated nevus Objective: 4 mm fleshy papule 06/29/2023 2:46 PM [facility] [address] DERMATOLOGY Microscopic Description Microscopic examination is performed. 06/29/2023 2:46 PM [facility] [address] DERMATOLOGY Technical Information A portion of the technical [place] [address]. The professional interpretation was performed at [facility]. 06/29/2023 2:46 PM [facility] [address] DERMATOLOGY Gross Description A: Received in formalin, labeled with the patient's name and Skin, Right Popliteal Fossa is a 8 x 6 x 1 mm shave biopsy of skin. The specimen is marked with green ink, trisected, and submitted entirely in one cassette. B: Received in formalin, labeled with the patient's name and Skin, Right Thigh - Posterior is a 6 x 5 x 1 mm shave biopsy of skin. The specimen is marked with black ink, bisected, and submitted entirely in one cassette. MT 06/29/2023 2:46 PM CDT [facility] [address]00 DERMATOLOGY Embedded Images 06/29/2023 2:46 PM [facility] [address] DERMATOLOGY Skin (Skin) 06/22/2023 10:5 9 AM CDT 06/22/2023 1:49 PM CDT Comment:Clinical Impression: DN Skin structure (body structure) (Skin) 06/22/2023 11:00 AM CDT 06/22/2023 1:49 PM CDT Comment:Clinical Impression: irritated nevus Michelle Bond MD LAB PATHOLOGY Performing Organization Address City/State/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 Nevus, non-neoplastic History of melanoma Personal history of malignant melanoma of skin Seborrheic keratosis Other seborrheic keratosis Skin cancer screening Screening for malignant neoplasm of the skin Multiple benign nevi Benign neoplasm of skin, site unspecified History of dysplastic nevus Personal history of diseases of skin and subcutaneous tissue Lentigines Other dyschromia Neoplasm of skin (HRC) Neoplasm of unspecified nature of bone, soft tissue, and skin documented in this encounter Care Teams Returned Item Clerk Relationship Specialty Start Date End Date Albania Zavala MD [address] [place] [address] PCP - General 08/09/12 documented as of this encounter
--- OUTSIDE RECORDS SUMMARY | 2023-10-23 07:08 | XMS_ITS | Encounter Summary ---
Author Name Unknown Organization [facility] Address [address] [place] [address] Care Team Providers Care Ict Managers Name Role Phone Aminata Coe P.A.-C. Primary Care Provider Encounter Details Date Type Department Care Team (Latest Contact Info) Description 02/27/2023 8:51 AM CDT - 02/27/2023 11:59 PM CDT Hospital Encounter Department of Laboratory Medicine in [place], [place] [address] [place] [phone] Aminata Coe P.A.-C. [address] [place] [phone] Hypomagnesemia Discharge Disposition: Home or Self Care Social [...] week 07/21/2020 How often do you attend latter day or yazdanism serv ices? Never 07/21/2020 Do you belong to any clubs o r organizations such as latter day groups, unions, fraternal or athletic groups, or [...] Answer Date Recorded PHQ-2 Score 0 01/31/2022 [facility] - Occupational [...] 1 tablet by mouth daily. 0 02/10/2010 levothyroxine (SYNTHROID, LEVOTHROID) 88 mcg tablet TAKE 1 TABLET EVERY MORNING BEFORE BREAKFAST ON AN EMPTY STOMACH 90 tablet 3 04/25/2022 04/05/2023 documented as of this encounter Plan of Treatment Not on file documented as of this encounter Procedures Procedure Name Priority Date/Time Associated Diagnosis Comments MAGNESIUM, S Routine 02/27/2023 9:05 AM CDT Hypomagnesemia documented in this encounter Results * Magnesium (02/27/2023 9:05 AM CDT) Magnesium, P 2.3 1.7 - 2.3 mg/dL 02/27/2023 11:57 AM CDT OWAT Blood (Blood, Venous) 02/27/2023 9:05 AM CDT 02/27/2023 11:20 AM CDT Aminata Coe P.A.-C. LAB BLOOD ADD-O N [facility] [address] [place] [address], [facility] OWAT [facility] [place] [address] [place] [address] documented in this encounter Visit Diagnoses Diagnosis Hypomagnesemia documented in this encounter Care Teams Ict Managers Relationship Specialty Start Date End Date Aminata Coe P.A.-C. [address] [place] [address] Ryankathia [place] [phone] PCP - General Internal Medicine 09/26/22 documented as of this encounter
--- OUTSIDE RECORDS SUMMARY | 2023-10-23 07:08 | XMS_ITS | Encounter Summary ---
Author Name Unknown Organization [facility] Address [address] [place] [address] Care Team Providers Care Pin Maker Name Role Phone Aminata Coe P.A.-C. Primary Care Provider Encounter Details Date Type Department Care Team (Late st Contact Info) Description 01/02/2023 Orders Only [facility] Aminata Coe P.A.-C. [address] [place] [phone] Hypothyroidism Social History Tobacco Use Types Packs/Day Years [...] week 07/21/2020 How often do you attend buddhist or tenriism serv ices? Never 07/21/2020 Do you belong to any clubs o r organizations such as buddhist groups, unions, fraternal or athletic groups, or [...] Answer Date Recorded PHQ-2 Score 0 01/31/2022 [facility] - Occupational [...] as of this encounter Visit Diagnoses Diagnosis Hypothyroidism documented in this encounter Care Teams Pin Maker Relationship Specialty Start Date End Date Aminata Coe P.A.-C. [address] [facility] [place] [phone] PCP - General Internal Medicine 09/26/22 documented as of this encounter
--- OUTSIDE RECORDS SUMMARY | 2023-10-23 07:08 | XMS_ITS | Encounter Summary ---
Author Name Unknown Organization [facility] Address [address] [place] [address] Care Team Providers Care Credit Control Officer Name Role Phone Aminata Coe P.A.-C. Primary Care Provider Reason for Referral * Outpatient (Routine) - Authorized Specialty Diagnoses / Procedures Referred By Contac t Referred To Contact Community Internal Medicine Aminata Coe P.A.-C. [address] [place] [address] [facility] Referral ID Status Reason Start Date Expiration Date V isits Requested Visits Authorized [id number] Authorized 02/27/2023 02/26/2026 1 1 Reason for Visit * Reason Comments Follow-up Lab results Other Discuss bump on back , fell in the tub, hurt left shoulder, bump is painful.Used biofreeze patches. Discuss vitamin e and calcium levels. * Appointment Request (Routine) - Closed Specialty Diagnoses / Procedures Referred By Contac t Referred To Contact Community Internal Medicine Referral ID Status Reason Start Date Expiration Date Visits Re quested Visits Authorized [id number] Closed 02/14/2023 02/14/2024 1 1 Encounter Details Date Type Department Care Team (Latest Contact Info) Description 02/27/2023 8:00 AM CDT Office Visit Department of Community Internal Medicine in [place], [place] [address] [place] [address] Aminata Coe P.A.-C. [address] [facility] AYALA Liao [phone] Hyperlipidemia (Primary Dx); Hypothyroidism; Screening Examination Diabetes Mellitus; Hypomagnesemia; General Medical Examination Adult Social History Tobacco Use Types Packs/Day Years Used Date Smoking Tobacco: Never Smokeless Tobacco: Never Tobacco Cessation:Counseling Given: Not Answered Alcohol Use Standard Drinks/Week Comments Yes 0 [...] How often do you attend alevism or mandaen serv ices? Never 07/21/2020 Do you belong [...] Answer Date Recorded PHQ-2 Score 0 01/31/2022 [facility] of Occupat ional Health - Occupational Stress [...] AM CDT documented as of this encounter Last Filed Vital Signs Vital Sign Reading Time Taken Comments Blood Pressure 118/74 02/27/2023 7:49 AM CDT Pulse 60 02/27/2023 7:49 AM CDT Temperature 35.7 ??C (96.2 ??F) 02/27/2023 7:49 AM CD T Respiratory Rate 16 02/27/2023 7:49 AM CDT Oxygen Saturation - - Inhaled Oxygen Concentration - - Weight 65.5 kg (144 lb 6.4 oz) 02/27/2023 7:49 A M CDT Height - - Body Mass Index 23.97 01/31/2022 9:23 AM CDT documented in this encounter H&P Notes * Aminata Coe P.A.-C. - 02/27/2023 8:00 AM CDT SUBJECTIVE CHIEF COMPLAINT / REASON FOR VISIT Follow-up (Lab results) and Other (Discuss bump on back, fell in the tub, hurt left shoulder, bump is painful.Used biofreeze patches. Discuss vitamin e and calcium levels.) HISTORY OF PRESENT ILLNESS Reshma Nielsen is a 62 y.o. female who presents today for annual exam. Patient had lab results completed prior to our visit which we will plan to review today. She takes levothyroxine for hypothyroidism. She has some questions about multivitamins today and biotin. Additionally, she mentions getting a leg cramp in her left leg over her hamstrings that she seems to notice most when she is driving. She reports she can be in the car for about 2-3 hours before this leg cramp develops. She has tried eating bananas and drinking tonic water to help alleviate cramps. She is wondering about taking a magnesium supplement to alleviate cramps. She has a supplement from [employer] that contains magnesium, calcium, and zinc that she is taking in addition to her multi-vitamin. She reports moving around is helpful for her cramp when it occurs. She fell in her tub a couple weeks ago. She has pain over her left scapula. She has no difficulty with our movements. She has been taking fboc-ckk-bcfbory analgesics as needed and has found Biofreezepatches helpful. Her symptoms are improving. She continues to complete her mammograms at [facility]. She completed Cologuard in October 2022 which was negative. ALLERGIES Latex Past Medical History: Diagnosis Date Dermatitis Contact 04/16/2018 Both feet Elevated Blood Pressure 04/16/2018 Gastroesophageal Reflux Disease 04/16/2018 Hyperlipidemia Hypothyroidism Keratosis Seborrheic Melanoma Skin (HCC) Right breast, excised in 2004 Nevus Dysplastic Psoriasis Past Surgical History: Procedure Laterality Date BREAST BIOPSY Left 09/14/2014 Non-proliferative fibrocystic change with calcifications. Negative for atypia and malignancy. SECTION 05/1988 section COLONOSCOPY 08/13/2012 Repeat in 10 years. SKIN BIOPSY Right 04/11/2018 Right lateral thigh SKIN CANCER EXCISION Right 2004 Melanoma, right breast. [facility] Family History Problem Relation Age of Onset Hyperlipidemia Mother Alzheimer's disease Mother Multiple myeloma Father Motor vehicle accident Maternal Grandfather Hypertension Maternal Grandfather Heart attack Paternal Grandmother Hypertension Aunt OBJECTIVE Blood pressure 118/74, pulse 60, temperature (!) 35.7 ??C, temperature source Temporal, resp. rate 16, weight 65.5 kg. PHYSICAL EXAMINATION Constitutional General: She is not in acute distress. Appearance: Normal appearance. HENT Head: Normocephalic and atraumatic. Right Ear: Tympanic membrane normal. Left Ear: Tympanic membrane normal. Mouth/Throat: Mouth: Mucous membranes are moist. Pharynx: Oropharynx is clear. No oropharyngeal exudate or posterior oropharyngeal erythema. Eyes Extraocular Movements: Extraocular movements intact. Conjunctiva/sclera: Conjunctivae normal. Pupils: Pupils are equal, round, and reactive to light. Cardiovascular Rate and Rhythm: Normal rate and regular rhythm. Heart sounds: Normal heart sounds. No murmur heard. No gallop. Pulmonary Effort: Pulmonary effort is normal. No respiratory distress. Breath sounds: Normal breath sounds. No wheezing, rhonchi or rales. Chest Comments: Patient declines breast exam. Abdominal General: Bowel sounds are normal. There is no distension. Palpations: Abdomen is soft. Tenderness: There is no abdominal tenderness. There is no guarding or rebound. Musculoskeletal General: No tenderness or deformity. Normal range of motion. Cervical back: Neck supple. Right lower leg: No edema. Left lower leg: No edema. Skin General: Skin is warm and dry. Neurological General: No focal deficit present. Mental Status: She is alert and oriented to person, place, and time. Sensory: No sensory deficit. Motor: No weakness. Deep Tendon Reflexes: Reflexes normal. Psychiatric Mood and Affect: Mood normal. Behavior: Behavior normal. Thought Content: Thought content normal. ASSESSMENT / PLAN #1 Hyperlipidemia We reviewed her lipid panel today which is stable from prior results. LDL cholesterol continues to be elevated around 150. Current ASCVD risk score is 4%. Re-check in 1 year. Order placed. - Lipid Panel; Future; Expected date: 02/28/2024 #2 Hypothyroidism TSH is within the normal range. Order placed to recheck in 1 year. We discussed that levothyroxine should not be taken at the same time as multi-vitamin. - S-TSH (Thyroid-Stimulating Hormone - Sensitive); Future; Expected date: 02/28/2024 #3 Screening Examination Diabetes Mellitus Fasting glucose is within the normal range. Re-check in 1 year. - Glucose, Fasting; Future; Expected date: 02/28/2024 #4 Leg Cramps We discussed dehydration and electrolyte abnormalities. We will check magnesium level today. Encouraged stretching. - Magnesium; Future; Expected date: 02/27/2023 #5 General Medical Examination Adult She will complete her mammogram at [facility]. She will be due for colon cancer screening in 2025 (Negative Cologuard 2022). She is up-to-date on vaccinations. - Basic Metabolic Panel; Future; Expected date: 02/28/2024 Other orders - Community Internal Medicine office visit (clinic); Future; Expected date: 02/28/2024 Aminata Coe PA-C documented in this encounter Plan of Treatment Scheduled Orders Name Type Priority Associated Diagnoses Orde r Schedule Lipid Panel Lab Routine Hyperlipidemia Expected: 02/28/2024 (Approximate), Expires: 05/30/2024 S-TSH (Thyroid-Stimulating Hormone - Sensitive) Lab Routine Hypothyroidism Expected: 02/28/2024 (Approximate), Expires: 05/30/2024 Basic Metabolic Panel Lab Routine General Medical Examination Adult Expected: 02/28/2024 (Approximate), Expires: 05/30/2024 Glucose, Fasting Lab Routine Screening Examination Diabetes Mellitus Expected: 02/28/2024 (Approximate), Expires: 05/30/2024 Scheduled Referrals Name Type Priority Associated Diagnoses Orde r Schedule Community Internal Medicine office visit (clinic) Outpatient Referral Routine Expected: 02/28/2024 (Approximate), Expires: 05/30/2024 documented as of this encounter Results * Magnesium (02/27/2023 9:05 AM CDT) Magnesium, P 2.3 1.7 - 2.3 mg/dL 02/27/2023 11:57 AM CDT OWAT Blood (Blood, Venous) 02/27/2023 9:05 AM CDT 02/27/2023 11:20 AM CDT Aminata Coe P.A.-C. LAB BLOOD ADD-O N [facility] [address] [place] [address], [facility] OWAT [facility] [place] [address] [place] [address] documented in this encounter Visit Diagnoses Diagnosis Hyperlipidemia- Primary Hypothyroidism Screening Examination Diabetes Mellitus Hypomagnesemia General Medical Examination Adult documented in this encounter Care Teams Credit Control Officer Relationship Specialty Start Date End Date Aminata Coe P.A.-C. [address] [place] [phone] PCP - General Internal Medicine 09/26/22 documented as of this encounter
--- OUTSIDE RECORDS SUMMARY | 2023-10-23 07:08 | XMS_ITS | Encounter Summary ---
Author Name Unknown Organization [facility] Address [address] [place] [address] Care Team Providers Care Continuous Process Machine Operator Name Role Phone Aminata Coe P.A.-C. Primary Care Provider Reason for Referral * Outpatient (Routine) - Closed Specialty Diagnoses / Procedures Referred By Contac t Referred To Contact Diagnoses Hyperlipidemia Procedures ECG 12 Lead Susu Sevilla M.D., M.P.H. [address] [place] [address] [facility] Referral ID Status Reason Start Date Expiration Date Visits Re quested Visits Authorized [id number] Closed 06/28/2023 06/27/2024 1 1 * Outpatient (Routine) - Closed Specialty Diagnoses / Procedures Referred By Contact Referred To Contact Cardiovascular Diseases / Cardiovascular Disease Diagnoses Hyperlipidemia Susu Sevilla M.D., M.P.H. [address] [place] [phone] [facility] Referral ID Status Reason Start Date Expiration Date Visits Re quested Visits Authorized [id number] Closed 06/28/2023 06/27/2024 1 1 Encounter Details Date Type Department Care Team (Late st Contact Info) Description 06/28/2023 Orders Only Division of Community Internal Medicine at [facility] [address] [place] [phone] Susu Sevilla M.D., M.P.H. Hyperlipidemia (Primary Dx) [...] How often do you attend buddhist or yazidism serv ices? Never 07/21/2020 Do you belong [...] Answer Date Recorded PHQ-2 Score 0 01/31/2022 [facility] of Occupat ional Health - [...] of this encounter Plan of Treatment Scheduled Referrals Name Type Priority Associated Diagnoses Order Schedule Cardiovascular Disease - Lipid (cardiology) consult (clinic) Familial hypercholesterolemia Outpatient Referral Routine Hyperlipidemia Expected: 06/28/2023 (Approximate), Expires: 09/27/2024 documented as of this encounter Results * (ABNORMAL) Hemoglobin A1c [...] Susu Sevilla M.D., M.P.H. LAB BLOOD ADD-ON [facility] [address] [place] [address], [place] OW[facility] [place] [address] [place] [address] * Glucose, Fasting (07/04/2023 9:19 AM CDT) Glucose, P 86 70 - 100 mg/dL 07/04/2023 11:53 AM CDT OWAT Last Intake 15 hr 07/04/2023 11:06 AM CDT OW[facility] Blood (Blood, Venous) 07/04/2023 9:19 AM CDT 07/04/2023 11:06 AM CDT Susu Sevilla M.D., M.P.H. LAB BLOOD NON ADD-ON [facility] [address] [place] [address], [place] [facility] [facility] [place] [address] [place] [address] * [place]-Heart Ceramide, Plasma (07/04/2023 9:19 AM CDT) [place]-Heart Ceramide Risk Score 2 07/09/2023 8:03 AM [...] developed and its performance characteristics determined by [facility] in a manner consistent with CLIA requirements. This test has not been cleared or approved by the U.S. Food and Drug Administration. Blood (Blood, Venous) 07/04/2023 9:19 AM CDT 07/05/2023 8:17 AM CDT Susu Sevilla M.D., M.P.H. LAB BLOOD NON ADD-ON [facility] [address] [place] [address], [facility] DTL [address] [facility] [address] [place] [address] * (ABNORMAL) Cardiovascular Risk Marker Panel (07/04/2023 9:17 AM CDT) Cholesterol, LDL, Calculated 208(H) mg/dL 07/05/2023 12:50 PM CDT DTL Comment: The markedly elevated LDL level is suggestive of a genetic condition such as familial hypercholesterolemia (FH) or familial defective apolipoprotein B-100 (FDB). Molecular genetic testing for FH and FDB is available through [facility] [employer]. ----REFERENCE VALUE---- Desirable: <100 mg/dL Above Desirable: [...] considered a risk enhancing factor by the [place] [employer]. This test has been modified from the market development analyst's instructions. Its performance characteristics were determined by [facility] in a manner consistent with CLIA requirements. [...] AM CDT 07/05/2023 8:28 AM CDT Narrative [facility] - 07/05/2023 12:50 PM CDT Specimen Information: Specimen ID: [id number] Specimen Type: Blood Specimen Collection Start Date: 07/04/2023 ??9:17 AM Specimen Received Date: 07/05/2023 ??8:28 AM Specimen ID: [id number] Specimen Type: Blood Specimen Collection Start Date: 07/04/2023 ??9:17 AM Specimen Received Date: 07/05/2023 12:33 PM Susu Sevilla M.D., M.P.H. LAB BLOOD NON ADD-ON Performing Organization Address City/[facility]/ZIP Co de Phone Number [facility] [address] [place] [address], [facility] [address] [place] [address] * Thyroid Function [place] (07/04/2023 9:17 AM CDT) TSH, Sensitive 2.6 0.3 - 4.2 mIU/L 07/04/2023 12:52 PM CDT OWAT Blood (Blood, Venous) 07/04/2023 9:17 AM CDT 07/04/2023 11:42 AM CDT Susu Sevilla M.D., M.P.H. LAB BLOOD ADD-ON Performing Organization Address City/[facility]/ZIP Co de Phone Number [facility] [address] [place] [address], [place] [address] [facility] [place] [address] [place] [address] * (ABNORMAL) Lipid Panel (07/04/2023 9:17 AM [...] for FH and FDB is available through [facility]. ----REFERENCE VALUE---- Desirable: <100 mg/dL Above [...] Susu Sevilla M.D., M.P.H. LAB BLOOD ADD-ON [facility] [address] [place] [address], [place] [facility] [facility] [place] [address] [place] [address] * Creatinine with Estimated GFR (07/04/2023 9:17 AM CDT) Creatinine 0.84 0.59 - 1.04 mg/dL 07/04/2023 12:50 PM CDT OWAT Estimated GFR (eGFR) 79 >=60 mL/min/BSA 07/04/2023 12:50 PM CDT OWAT Comment: Estimated GFR calculated using the 2020 CKD_EPI creatinine equation. Blood (Blood, Venous) 07/04/2023 9:17 AM CDT 07/04/2023 11:42 AM CDT Susu Sevilla M.D., M.P.H. LAB BLOOD ADD-ON Performing Organization Address [facility]/ZIP Co de Phone Number [facility] [address] [place] [address], [facility] [place] [address], [place] [address] * AST (Aspartate Aminotransferase) (07/04/2023 9:17 AM CDT) Aspartate Aminotransferase (AST), P 31 8 - 43 U/L 07/04/2023 12:50 PM CDT OWAT Blood (Blood, Venous) 07/04/2023 9:17 AM CDT 07/04/2023 11:42 AM CDT Susu Sevilla M.D., M.P.H. LAB BLOOD ADD-ON Performing Organization Address [facility] Co de Phone Number [facility] [address] [place] [address], [facility] OWAT [facility] [place] [address] [place] [address] * ECG 12 Lead (07/04/2023 9:04 AM CDT) Ventricular Rate ECG/Min 60 BPM MUSE IN Interval 132 ms MUSE QRSD Interval 82 ms MUSE QT Interval 428 ms MUSE QTC Interval 428 ms MUSE P [place] 59 degrees MUSE R [place] 81 degrees MUSE T Wave [place] 48 degrees MUSE 07/04/2023 9:04 AM CDT [...] this encounter Visit Diagnoses Diagnosis Hyperlipidemia- Primary Hyperlipidemia Hyperlipidemia documented in this encounter Care Teams Continuous Process Machine Operator Relationship Specialty Start Date End Date Aminata Coe P.A.-C. [address] [place] [address] [place] [phone] PCP - General Internal Medicine 09/26/22 documented as of this encounter
--- OUTSIDE RECORDS SUMMARY | 2023-10-23 07:08 | XMS_ITS | Encounter Summary ---
Author Name Unknown Organization [facility] Address [address] [place] [address] Care Team Providers Care Turntable Engineer Name Role Phone Aminata Coe P.A.-C. Primary Care Provider Reason for Visit * Reason Comments Med Refill Encounter Details Date Type Department Care Team (Late st Contact Info) Description 04/04/2023 Refill Department of Community Internal Medicine in [place] [address] [place] [address] Susu Sevilla M.D., M.P.H. Med Refill Social History Tobacco Use Types [...] week 07/21/2020 How often do you attend restoration or pentecostalism serv ices? Never 07/21/2020 Do you belong to any clubs o r organizations such as restoration groups, unions, fraternal or athletic groups, or [...] Answer Date Recorded PHQ-2 Score 0 01/31/2022 [facility] of Occupat ional Health - [...] on filedocumented in this encounter Care Teams Turntable Engineer Relationship Specialty Start Date End Date Aminata Coe P.A.-C. [address] [place], [place] [address] [phone] PCP - General Internal Medicine 09/26/22 documented as of this encounter
--- OUTSIDE RECORDS SUMMARY | 2023-10-23 07:08 | XMS_ITS | Encounter Summary ---
Author Name Unknown Organization [facility] Address [address] [place] [address] Care Team Providers Care Driver Engineer Name Role Phone Aminata Coe-Dionne Primary Care Provider Encounter Details Date Type Department Care Team (Late st Contact Info) Description 10/31/2022 Orders Only [facility] SELF [facility] [address] [place] [phone] Aminata Coe P.A.-Dionne [address] [place] [address] [place] [phone] Screening Cancer Colon Social History Tobacco Use [...] week 07/21/2020 How often do you attend yarsanism or restorationism serv ices? Never 07/21/2020 Do you belong to any clubs o r organizations such as yarsanism groups, unions, fraternal or athletic groups, or [...] Answer Date Recorded PHQ-2 Score 0 01/31/2022 [facility] of Occupat ional Health - Occupational Stress [...] Date Recorded Dental: Regular Dentist Yes 10/03/19 23 Education Answer Date Recorded What is the [...] of this encounter Visit Diagnoses Diagnosis Screening Cancer Colon documented in this encounter Care Teams Driver Engineer Relationship Specialty Start Date End Date Aminata Coe P.A.-C. STEFANIEI: [id number] [address] [place], [place] [address] [phone] PCP - General Internal Medicine 09/26/22 documented as of this encounter
--- OUTSIDE RECORDS SUMMARY | 2023-10-23 07:08 | XMS_ITS | Clinical Summary ---
Author Name Unknown Organization [facility] Address [address] [place] [address] Care Team Providers Care Historical Interpreter Name Role Phone Albania Zavala MD Primary Care Provider [phone] Source Comments You are receiving this document as you are listed as the primary care provider,follow-up provider, or the patient has been referred to you for consultation.This is in compliance with the Medicare and[facility] Hospital[facility] EHR Incentive Program,which states Providers who transition their patient to another setting of careor provider of care or refers their patient to another provider of care shouldprovide summary care record for each transition of care or referral. [place] Allergies Active Allergy Reactions Criticality Noted Date Comments Latex 04/19/2018 And rubber: Contact dermititis Medications Medication Sig Dispensed Refills Start Date End Date Status Hydroquinone 4 % cream Apply topically 2 times daily. Apply to darkened areas, hands, for 12 weeks. 28.35 g 1 09/29/2013 Active omega-3 fatty acids (FISH OIL) 1000 MG capsule Take by mouth. 0 03/16/2016 Active fluocinonide (LIDEX) 0.05 % external solution Apply nightly to scalp as needed for itching, rash or flaking. Don't use on face 60 mL 11 06/15/2020 Active levothyroxine (SYNTHROID) 88 MCG tablet Take 88 mcg by mouth daily. 0 10/25/2021 Active Fluocinolone Acetonide Scalp (FLUOCINOLONE) 0.01 % OIL Apply once weekly overnight to scalp. 118 mL 3 06/23/2022 Active valACYclovir (VALTREX) 500 MG tablet Take 1 Tablet (500 mg) by mouth two times a day. Day before procedure, day of procedure and 2 days after 8 Tablet 1 06/23/2022 Active Active Problems Problem Noted Date Diagnosed Date History of dysplastic nevus 06/14/2020 Overview: DN, moderate atypia, right lateral thigh, s/p excision 05/2018. Personal history of malignant melanoma of skin 0 05/30/2013 Overview: Right breast, s/p excision at [facility] 2004 Social History Tobacco Use Types Packs/Day Years Used Date Smoking Tobacco: Never Smokeless Tobacco: Never Alcohol Use Standard Drinks/Week Comments No 0 (1 standard drink = 0.6 oz pur e alcohol) Sex and Gender Information Value Date Recorded Sex Assigned at Not on file Gender Identity Not on file Sexual Orientation Not on file Last Filed Vital Signs Vital Sign Reading Time Taken Comments Blood Pressure 127/83 08/17/2016 12:18 PM FILM SPOOLER Pulse - - Temperature 36.8 ??C (98.3 ??F) 04/12/2018 6:17 PM CD T Respiratory Rate - - Oxygen Saturation - - Inhaled Oxygen Concentration - - Weight 66.7 kg (147 lb) 04/19/2018 1:16 PM CDT Height 165.1 cm (5' 5) 04/19/2018 1:16 PM CDT Body Mass Index 24.46 04/19/2018 1:16 PM CDT Plan of Treatment Upcoming Encounters Date Type Department Care Team Description 06/24/2024 10:15 AM CDT Appointment [facility] [address] [place] [address] Michelle Shelton MD [address] [place] [address] Health Maintenance Due Date Last Done Comments Cervical Cancer Screening Due 1962 Colon Cancer Screening Plan Due 1962 Hep C Screening (Preventive Services) 1962 Mammogram 1962 COVID-19 Vaccine (#1) 1962 HIV Screening (Preventive Services) 1978 Adult Preventive Visit 1980 Cholesterol 2007 Zoster/Shingles (1 of 2) 2012 Influenza (#1) 2023 07/13/2022, 11/0 03/2021, 06/21/2020, Additional history exists DTaP/Tdap/Td (4 - Tdap) 07/14/2025 07/14/20 15, 11/21/2006, 11/21/2006 HepA Aged Out No longer eligi ble based on patient's age to complete this topic HepB Aged Out No longer eligi ble based on patient's age to complete this topic Hib Aged Out No longer eligi ble based on patient's age to complete this topic IPV (Polio) Aged Out No longer eligi ble based on patient's age to complete this topic MCV4 Aged Out No longer eligi ble based on patient's age to complete this topic Pneumococcal Aged Out No longer eligi ble based on patient's age to complete this topic Care Teams Historical Interpreter Relationship Specialty Start Date End Date Albania Zavala MD [address] [facility] [place] [address] PCP - General 08/09/12
--- OUTSIDE RECORDS SUMMARY | 2023-10-23 07:08 | XMS_ITS | Encounter Summary ---
Author Name Unknown Organization [facility] Address [address] [place] [address] Care Team Providers Care Coil Tier Name Role Phone Aminata Coe P.A.-C. Primary Care Provider Encounter Details Date Type Department Care Team (Late st Contact Info) Description 11/17/2022 Abstract Department of Community Internal Medicine in [place], [place] [address] [place] [address] Aminata Coe P.A.-C. [address] [place] [address] Social History Tobacco Use Types Packs/Day Years [...] week 07/21/2020 How often do you attend confucianism or zoroastrian serv ices? Never 07/21/2020 Do you belong to any clubs o r organizations such as confucianism groups, unions, fraternal or athletic groups, or [...] Answer Date Recorded PHQ-2 Score 0 01/31/2022 [facility] of Occupat ional Health - Occupational Stress [...] Procedure Name Priority Date/Time Associated Diagnosis Comments EXT THINPREP W/HPV CO-TEST SCREEN Routine 11/10/2019 EXT THINPREP W/HPV CO-TEST SCREEN Routine 11/10/2019 EXT THINPREP W/HPV CO-TEST SCREEN Routine 11/10/2019 documented in this encounter Results * EXT ThinPrep w/HPV Co-Test Screen (11/10/2019) EXT ThinPrep w/HPV Co-Test Screen Normal - See Scanned Report for Details Normal - See Scanned Report for Details, HIMS - Report Received and Scanned Thin Prep Vial (Cervix/Endocervi x) 11/10/2019 Historical Provider LAB PAP PATHDX ORDER KATY * EXT ThinPrep w/HPV Co-Test Screen (11/10/2019) Pathologist [facility] EXT ThinPrep w/HPV Co-Test Screen Normal - See Scanned Report for Details Normal - See Scanned Report for Details, HIMS - Report Received and Scanned Thin Prep Vial (Cervix/Endocervi x) 11/10/2019 Historical Provider LAB PAP PATHDX ORDER KATY * EXT ThinPrep w/HPV Co-Test Screen (11/10/2019) Pathologist [facility] EXT ThinPrep w/HPV Co-Test Screen Comment:See result details Thin Prep Vial (Cervix/Endocervi x) 11/10/2019 Historical Provider LAB PAP PATHDX ORDER KATY documented in this encounter Visit Diagnoses Not on filedocumented in this encounter Care Teams Coil Tier Relationship Specialty Start Date End Date Aminata Coe P.A.-C. [address] [place] [address] AYALA STEWART [phone] PCP - General Internal Medicine 09/26/22 documented as of this encounter
--- OUTSIDE RECORDS SUMMARY | 2023-10-23 07:08 | XMS_ITS | Encounter Summary ---
Author Name Unknown Organization [facility] Address [address] [place] [address] Care Team Providers Care Dianeticist Name Role Phone Aminata Coe P.A.-C. Primary Care Provider Encounter Details Date Type Department Care Team (Late st Contact Info) Description 02/14/2023 Orders Only [facility] Aminata Coe P.A.-C. [address] [place] [phone] Screening Mammogram Breast Cancer Social History Tobacco [...] week 07/21/2020 How often do you attend denominational or roman catholic serv ices? Never 07/21/2020 Do you belong to any clubs o r organizations such as denominational groups, unions, fraternal or athletic groups, or [...] Answer Date Recorded PHQ-2 Score 0 01/31/2022 [facility] of Occupat ional Health - [...] Cancer documented in this encounter Care Teams Dianeticist Relationship Specialty Start Date End Date Aminata Coe P.A.-C. [address] [place] [phone] PCP - General Internal Medicine 09/26/22 documented as of this encounter
--- OUTSIDE RECORDS SUMMARY | 2023-10-23 07:08 | XMS_ITS | Encounter Summary ---
Author Name Unknown Organization [facility] Address [address] [place] [address] Care Team Providers Care Solid Surface Fabricator Name Role Phone Aminata Coe P.A.-C. Primary Care Provider Encounter Details Date Type Department Care Team (Latest Contact Info) Description 01/31/2023 8:00 AM CDT - 01/31/2023 11:59 PM CDT Hospital Encounter Department of Laboratory Medicine in [place], [place] [address] [place] [address] Aminata Coe P.A.-C. [address] [place] [address] Hyperlipidemia; General Medical Examination Adult; Hypothyroidism Discharge Disposition: Home or Self Care Social [...] How often do you attend scientologist or anabaptism serv ices? Never 07/21/2020 Do you belong [...] Answer Date Recorded PHQ-2 Score 0 01/31/2022 [facility] of Occupat ional Health - Occupational [...] EMPTY STOMACH 90 tablet 3 04/25/2022 04/05/2023 valACYclovir (VALTREX) 500 mg tablet Take 500 mg by mouth. 0 06/23/20222022 documented as of this encounter Plan of Treatment Not on file documented as of this encounter Procedures Procedure Name Priority Date/Time Associated Diagnosis Comments LIPID PANEL, S Routine 01/31/2023 8:22 AM CDT Hyperlipidemia THYROID FUNCTION CASCADE, S Routine 01/31/2023 8:22 AM CDT Hypothyroidism CBC WITH DIFFERENTIAL, B Routine 01/31/2023 8:22 AM CDT General Medical Examination Adult GLUCOSE, FASTING, S/P Routine 01/31/2023 8:22 AM CDT General Medical Examination Adult BASIC METABOLIC PANEL, S/P Routine 01/31/2023 8:22 AM CDT General Medical Examination Adult documented in this encounter Results * (ABNORMAL) CBC with Differential, Blood (01/31/2023 8:22 AM CDT) Pathologist [facility] Hemoglobin 13.8 11.6 - 15.0 g/dL 01/31/2023 9:01 AM CDT FB60 Hematocrit 39.7 35.5 - 44.9 % 01/31/2023 9:01 AM CDT FB60 Erythrocytes 4.62 3.92 - 5.13 x10(12)/L 01/31/2023 9:01 AM CDT FB60 MCV 85.9 78.2 - 97.9 fL 01/31/2023 9:01 AM CDT FB60 RBC Distrib Width 12.1(L) 12.2 - 16.1 % 01/31/2023 9:01 AM CDT FB60 Platelet Count 231 157 - 371 x10(9)/L 01/31/2023 9:01 AM CDT FB60 Leukocytes 4.1 3.4 - 9.6 x10(9)/L 01/31/2023 9:01 AM CDT FB60 Neutrophils 2.31 1.56 - 6.45 x10(9)/L 01/31/2023 9:01 AM CDT FB60 Lymphocytes 1.45 0.95 - 3.07 x10(9)/L 01/31/2023 9:01 AM CDT FB60 Monocytes 0.26 0.26 - 0.81 x10(9)/L 01/31/2023 9:01 AM CDT FB60 Eosinophils 0.05 0.03 - 0.48 x10(9)/L 01/31/2023 9:01 AM CDT FB60 Basophils <0.04 0.01 - 0.08 x10(9)/L 01/31/2023 9:01 AM CDT FB60 Blood (Blood, Venous) 01/31/2023 8:22 AM CDT 01/31/2023 8:25 AM CDT Aminata Coe P.A.-C. LAB BLOOD ADD-O N [facility] [address] [place] [address], [facility] FB60 [place] [address] * Thyroid Function [place] (01/31/2023 8:22 AM CDT) TSH, Sensitive 0.8 0.3 - 4.2 mIU/L 01/31/2023 12:18 PM CDT OWAT Blood (Blood, Venous) 01/31/2023 8:22 AM CDT 01/31/2023 11:12 AM CDT Aminata Deanovic P.A.-C. LAB BLOOD ADD-O N Performing Organization Address [facility]/ZIP Co de Phone Number [facility] [address] [address], [facility] OWAT [facility] [place] [address] [place] [address] * Glucose, Fasting (01/31/2023 8:22 AM CDT) Glucose, P 84 70 - 100 mg/dL 01/31/2023 11:46 AM CDT OWAT Last Intake 13 hr 01/31/2023 11:10 AM CDT OWAT Blood (Blood, Venous) 01/31/2023 8:22 AM CDT 01/31/2023 11:09 AM CDT Aminata BagleyCYuko LAB BLOOD NON A DD-ON Performing Organization Address [facility]/ZIP Co de Phone Number [facility] [address] [place] [address], [facility] OWAT [facility] [place] [address], [place] [address] * (ABNORMAL) Basic Metabolic Panel (01/31/2023 8:22 AM CDT) Potassium, P 4.2 3.6 - 5.2 mmol/L 01/31/2023 12:13 PM CDT OWAT Sodium, P 142 135 - 145 mmol/L 01/31/2023 12:13 PM CDT OWAT Chloride, P 103 98 - 107 mmol/L 01/31/2023 12:13 PM CDT OWAT Bicarbonate, P 30(H) 22 - 29 mmol/L 01/31/2023 12:13 PM CDT OWAT Anion Gap, P 9 7 - 15 01/31/2023 12:13 PM CDT OWAT BUN (Blood Urea Nitrogen), P 14 6 - 21 mg/dL 01/31/2023 12:13 PM CDT OWAT Creatinine 0.81 0.59 - 1.04 mg/dL 01/31/2023 12:13 PM CDT OWAT Estimated GFR (eGFR) 83 >=60 mL/min/BSA 01/31/2023 12:13 PM CDT OWAT Comment: Estimated GFR calculated using the 2020 CKD_EPI creatinine equation. Calcium, Total, P 9.3 8.8 - 10.2 mg/dL 01/31/2023 12:13 PM CDT OWAT Glucose, P CANCELED mg/dL 01/31/2023 11:15 AM CDT OWAT Comment: Duplicate test request. Result canceled by the ancillary. Blood (Blood, Venous) 01/31/2023 8:22 AM CDT 01/31/2023 11:12 AM CDT Aminata Coe P.A.-C. LAB BLOOD ADD-O N [facility] [address] [address], [facility] OWAT [facility] [place] [address] [place] [address] * (ABNORMAL) Lipid Panel (01/31/2023 8:22 AM CDT) Triglycerides 103 mg/dL 01/31/2023 12:13 PM CDT OWAT Comment: ----REFERENCE VALUE---- Normal: <150 mg/dL Borderline High: 150-199 mg/dL High: 200-499 mg/dL Very High: > or =500 mg/dL Cholesterol, Total 211(H) mg/dL 2022 12:13 PM CDT OWAT Comment: ----REFERENCE VALUE---- Desirable: < 200 mg/dL Borderline High: 200 - 239 mg/dL High: > or = 240 mg/dL Cholesterol, LDL, Calculated 150(H) mg/dL 01/31/2023 12:13 PM CDT OWAT Comment: ----REFERENCE VALUE---- Desirable: <100 mg/dL Above Desirable: 100-129 mg/dL Borderline High: 130-159 mg/dL High: 160-189 mg/dL Very High: >=190 mg/dL ----ADDITIONAL INFORMATION---- LDL cholesterol calculated using the Suresh/NIH equation. Cholesterol, HDL 42(L) >=50 mg/dL 02/01/20 12:13 PM CDT OWAT Cholesterol, Non-HDL, Calculated 169(H) mg/dL 01/31/2023 12:13 PM CDT OWAT Comment: ----REFERENCE VALUE---- Desirable: <130 mg/dL Above Desirable: 130-159 mg/dL Borderline High: 160-189 mg/dL High: 190-219 mg/dL Very High: > or =220 mg/dL Fasting (8 HR or more) Yes 01/31/2023 11:12 AM CDT OWAT Blood (Blood, Venous) 01/31/2023 8:22 AM CDT 01/31/2023 11:12 AM CDT Aminata Coe P.A.-C. LAB BLOOD ADD-O N [facility] [address] [place] [address], [facility] OWAT [facility] [place] [address] [place] [address] documented in this encounter Visit Diagnoses Diagnosis Hyperlipidemia General Medical Examination Adult Hypothyroidism documented in this encounter Care Teams Solid Surface Fabricator Relationship Specialty Start Date End Date Aminata Coe P.A.-C. [address] [place] [phone] PCP - General Internal Medicine 09/26/22 documented as of this encounter
== END 2023-10-22 08:18 | disposition home or self-care (01) ==
LOC: NFLDREF 10-23 07:04
PROVIDERS: Visit Provider Internal Medicine
DX: E78.5 Hyperlipidemia, unspecified (principal)
CPT/HCPCS: 80061

== ENCOUNTER 2024-02-13 08:15 | Outpatient (CLI) | payer OTHER, SELFPAY ==
--- OUTSIDE RECORDS SUMMARY | 2024-02-13 12:42 | XMS_ITS ---
Author Name Unknown Organization [facility] Address [address] [place] [address] Care Team Providers Care President And Chief Operating Officer Name Role Phone Unavailable Unavailable Unavailable Surgery Details Not on file Complications Check Surgery Details section. Procedure Estimated Blood Loss Check Surgery Details section. Procedure Findings Check Surgery Details section. Procedure Specimens Taken Check Surgery Details section.
--- OUTSIDE RECORDS SUMMARY | 2024-02-13 12:42 | XMS_ITS | Encounter Summary ---
Author Name Unknown Organization [facility] Address [address] [place] [address] Care Team Providers Care Smoke Eater Name Role Phone Aminata Coe P.A.-C. Primary Care Provider Encounter Details Date Type Department Care Team (Latest Contact Info) Description 10/05/2023 9:00 AM DRESSER TENDER Virtual Visit Department of Medical Genetics in [place], [place] [address] [place] [address] Clifton Whitman [address] [place] [address] Hyperlipidemia (Primary Dx) Social History Tobacco Use [...] How often do you attend buddhist or buddhism serv ices? Never 07/21/2020 Do you belong [...] Answer Date Recorded PHQ-2 Score 0 01/31/2022 [facility] of Occupat ionnc Health - Occupational Stress Questionnaire Answer Date [...] #1 Facilitation of Familial Hypercholesterolemia Panel from [employer]. On behalf of Eliane Trejo APRN, I had a conversation with Reshma to facilitate genetic testing forthe Familial Hypercholesterolemia genetic testing panel offered through [facility]. We reviewed the three possible results that [...] pedigree was constructed by the Genetic [facility]. Our risk assessment is based upon medical [...] ancestry is . There is no known Panamanian ancestry. There is no consanguinity. BILLING INFORMATION Approximate cost and insurance coverage of genetic testing was discussed. [facility] is not involved in the billing for the genetic testing. We recommend all questions and correspondence be directedto [facility]'s billing department. All patients in the [place] will receive an email and/or text describing the insurance billing process. If a patient owes more than $100 after insurance processes their claim, an [facility] documentation billing clerk will proactively call to discuss their options. Billing options include our newly revised patient assistance program, which now offers maximum [id number] costs instead of a percent discount - so patients can more clearly see what they will owe. [facility] billing specialists are happy to work with patients who receive a bill for less than $100 but still need assistance. They can simply call [employer] at [phone] Sunday through Sunday, 5:00 am to 5:00 pm [place], or email us anytime at [email or web address]. [employer] patient billing postcard [facility] Billing landing page [employer] PLAN I will follow up with the patient in 4-5 weeks. PATIENT EDUCATION All of the above was explained in detail with the patient who verbalized understanding. There were no apparent barriers to learning and understanding. The patient's questions were answered to the best of my ability. Electronically signed by Mireille Muhammad M.S., [facility] at 10/05/2023 1:22 PM DRESSER TENDER Clifton Strong - 10/05/2023 9:00 AM CST Pt hasn't completed next lipid check. Sent POM Checking in SER TENDER Clifton Strong - 10/05/2023 9:00 AM CST Sent POM checking-in documented in this encounter Plan of Treatment Not on file documented as of this encounter Visit Diagnoses Diagnosis Hyperlipidemia- Primary documented in this encounter Care Teams Smoke Eater Relationship Specialty Start Date End Date Aminata Coe P.A.-C. [address] [place] [address] [facility] [place] [phone] PCP - General Internal Medicine 09/26/22 documented as of this encounter
--- OUTSIDE RECORDS SUMMARY | 2024-02-13 12:42 | XMS_ITS | Referral Summary ---
Author Name Unknown Organization [facility] Address [address] [place] [address] Care Team Providers Care Hybrid Tester Name Role Phone Aminata Coe P.A.-C. Primary Care Provider Source Comments Patient records contain information from all sites at [facility]. For routine questions regarding patient records, call [phone] during business hours, M-F 8:00 AM - 5:00 PM Central Time. Record requests for emergency care only can be directed to [phone] at any time.[facility] Allergies Active Allergy Reactions Criticality Noted Date Comments Latex Rash 04/19/2018 And rubber: Contact dermititis Medications Medication Sig Dispensed Refills Start Date End Date Status multivit with minerals/lutein (MULTIVITAMIN 50 PLUS ORAL) Take 1 tablet by mouth daily. 02/10/2010 Active fluocinonide (LIDEX) 0.05 % external solution Apply 0.05 application topically 2 (two) times a day as needed for rash. 60 mL 1 01/31/2022 Active fluocinolone (DERMA-SMOOTHE) 0.01 % external oil Apply once weekly overnight to scalp. 06/23/2022 Active rosuvastatin (CRESTOR) 20 mg tablet [...] Mom: high cholesterol, no h/o stroke or PR, age 80s Dad: on statin, 82 yo, [...] to guide decision about statin therapy (consider [facility] self pay option for $100) --if calcifications [...] 007 Overview: (r) breast. (2004) Goes to [facility] 12/2021: Skin lesion biopsied, result: Solar [...] Unspecified 08/15/2013,06/16/2009 SARS-COV-2 (COVID-19) - PFIZ ER (Discontinued)(12 years or older) 01/15/2021,12/25/2020 SARS-COV-2 (COVID-19) - PFIZ ER TS(Discontinued)(12 years or older) 01/31/2022 Tdap 07/14/2015,11/21/2006 influenza [...] week 07/21/2020 How often do you attend uatsdin or bahai serv ices? Never 07/21/2020 Do you belong to any clubs o r organizations such as uatsdin groups, unions, fraternal or athletic groups, or [...] Answer Date Recorded PHQ-2 Score 0 01/31/2022 [facility] of Occupat ional Health - Occupational [...] your living situation today? I have a [facility] place to live 08/02/2023 Education Answer Date [...] CDT Oxygen Saturation 97% 10/28/2020 10:33 AM BLOWER INSTALLER Inhaled Oxygen Concentration - - Weight 65.5 kg (144 lb 6.4 oz) 02/27/2023 7:49 A M CDT Height 165.3 cm (5' 5.08) 01/31/2022 9:23 AM CD T Body Mass Index 23.97 01/31/2022 9:23 AM CDT Plan of Treatment Not on file Procedures Procedure Name Priority Date/Time Associated Diagnosis Comments GLUCOSE, FASTING, S/P Routine 07/04/2023 9:19 AM CDT Hyperlipidemia LIPID PANEL, S Routine 07/04/2023 9:17 AM CDT Hyperlipidemia THYROID FUNCTION CASCADE, S Routine 07/04/2023 9:17 AM CDT Hyperlipidemia COLOGUARD Routine 10/23/2022 7:00 AM BLOWER INSTALLER Screening Cancer Colon EXT THINPREP W/HPV CO-TEST SCREEN Routine 11/10/2019 EXT MAMMOGRAM ENTER_EDIT RAD - Routine (most inpatients and all outpatients) 09/19/2019 from Last 3 Months or Most Recently Relevant to Health Maintenance Results * Glucose, Fasting (07/04/2023 9:19 AM CDT) Glucose, P 86 70 - 100 mg/dL 07/04/2023 11:53 AM CDT OWAT Last Intake 15 hr 07/04/2023 11:06 AM CDT OWAT Blood (Blood, Venous) 07/04/2023 9:19 AM CDT 07/04/2023 11:06 AM CDT Susu Sevilla M.D., M.P.H. LAB BLOOD NON ADD-ON [facility] [address] [place] [address], [facility] OWAT [facility] [place] [address] [place] [address] * (ABNORMAL) Lipid Panel (07/04/2023 9:17 AM [...] for FH and FDB is available through [facility]. ----REFERENCE VALUE---- Desirable: <100 mg/dL Above [...] Susu Sevilla M.D., M.P.H. LAB BLOOD ADD-ON [facility] [address] [place] [address], [facility] OWAT [facility] [address] [place] [address] * Thyroid Function [place] (07/04/2023 9:17 AM CDT) TSH, Sensitive 2.6 0.3 - 4.2 mIU/L 07/04/2023 12:52 PM CDT OW Blood (Blood, Venous) 07/04/2023 9:17 AM CDT 07/04/2023 11:42 AM CDT Susu Sevilla M.D., M.P.H. LAB BLOOD ADD-ON Performing Organization Address City/[facility] Co de Phone Number [facility] [address] [place] [address], [facility] Acc[facility] [address] [place] [address] * Cologuard-Sent Out Lab (10/23/2022 7:00 AM BLOWER INSTALLER) Result Negative Negative 10/27/2022 5:39 PM BLOWER INSTALLER EXLI Comment: NEGATIVE TEST RESULT. A negative [...] (Juanita Iglesias al, N Engl J Med 2014;370(14):2004-5627) The normal value (reference range) for this assay is negative. COLOGUARD RE-SCREENING RECOMMENDATION: Periodic colorectal cancer screening is an important part of preventive healthcare for asymptomatic individuals at average risk for colorectal cancer. ??Following a negative Cologuard result, the [place] [employer] Society and U.S. Multi-Society Task Force screening guidelines recommend a Cologuard re-screening interval of 3 years. References: [place] [employer] Guideline for Colorectal Cancer Screening: https://www.cancer.org/cancer/jyzzg-tcmeif-ptkwhi/detection- diagnosis-staging/acs-recommendations.html.; Jose DK, Du HOLLINS, Mara TownsendK, Colorectal Cancer Screening: Recommendations for Physicians and Patients from the U.S. Multi-Society Task Force on Colorectal Cancer Screening , Am J Gastroenterology 2017; 112:0910-6019. TEST DESCRIPTION: Composite algorithmic analysis of stool [...] screened with both Cologuard and colonoscopy. (Juanita Benitez, N Engl J Med 2014;370(14):5226-0436.) Cologuard may produce a false negative or false positive result (no colorectal cancer or precancerous polyp present at colonoscopy follow up). A negative Cologuard test result does not guarantee the absence of CRC or advanced adenoma (pre-cancer). The current Cologuard screening interval is every 3 years. ([place] [employer] Society and U.S. Multi-Society Task Force). Cologuard performance data in a 10,000 patient pivotal study using colonoscopy as the reference method can be accessed at the following location: www.[employer].globalscholar.com/results. Additional description of the Cologuard test process, warnings and precautions can be found at www.cologuard.com. Stool (Stool) 10/23/2022 7:0 0 AM BLOWER INSTALLER 10/24/2022 1:53 PM BLOWER INSTALLER Aminata Coe P.A.-C. LAB BODY FLUIDS AND STOOLS ORDERABLES [facility] [address] [place] [address] EX[address] [employer] [address] [place] [address], [address] [place] [address] * EXT ThinPrep w/HPV Co-Test Screen (11/10/2019) EXT ThinPrep w/HPV Co-Test Screen Normal - See Scanned Report for Details Normal - See Scanned Report for Details, HIMS - Report Received and Scanned Thin Prep Vial (Cervix/Endocervi x) 11/10/2019 Historical Provider LAB PAP PATHDX ORDER KATY * EXT Mammogram (09/19/2019) EXT Mammogram Normal - See Scanned Report for Details Normal - See Scanned Report for Details EXTERNAL NON-INTERFACE D LAB Anatomical Region Laterality Modality Breast, Breast Imaging ARZ L OS, Breast Imaging FLA LOS, Breast Imaging RST LOS N/A Mammography Ordering Provider External M.DYuko LUIS P ROCEDURES from Last 3 Months or Most Recently Relevant to Health Maintenance Care Teams Hybrid Tester Relationship Specialty Start Date End Date Aminata Coe P.A.-C. [address] [place] [address] [facility] [place] [place] [id number] PCP - General Internal Medicine 09/26/22
--- OUTSIDE RECORDS SUMMARY | 2024-02-13 12:42 | XMS_ITS | Clinical Summary ---
Author Name Unknown Organization [facility] Address [address] [place] [address] Care Team Providers Care Acetone Recovery Worker Name Role Phone Albania Zavala MD Primary Care Provider [phone] Source Comments You are receiving this document as you are listed as the primary care provider,follow-up provider, or the patient has been referred to you for consultation.This is in compliance with the Medicare and[facility] EHR Incentive Program,which states Providers who transition their patient to another setting of careor provider of care or refers their patient to another provider of care shouldprovide summary care record for each transition of care or referral. [facility] Allergies Active Allergy Reactions Criticality Noted Date Comments Latex 04/19/2018 And rubber: Contact dermititis Medications Medication Sig Dispensed Refills Start Date End Date Status Hydroquinone 4 % cream Apply topically 2 times daily. Apply to darkened areas, hands, for 12 weeks. 28.35 g 1 09/29/2013 Active omega-3 fatty acids (FISH OIL) 1000 MG capsule Take by mouth. 03/16/2016 Active fluocinonide (LIDEX) 0.05 % external solution Apply nightly to scalp as needed for itching, rash or flaking. Don't use on face 60 mL 11 06/15/2020 Active levothyroxine (SYNTHROID) 88 MCG tablet Take 88 mcg by mouth daily. 10/25/2021 Active Fluocinolone Acetonide Scalp (FLUOCINOLONE) 0.01 [...] 05/30/2013 Overview: Right breast, s/p excision at [facility] 2004 Social History Tobacco Use Types Packs/Day [...] Comments Blood Pressure 127/83 08/17/2016 12:18 PM LEGAL MEDIATOR Pulse - - Temperature 36.8 ??C (98.3 ??F) 04/12/2018 6:17 PM CD T Respiratory Rate - - Oxygen Saturation - - Inhaled Oxygen Concentration - - Weight 66.7 kg (147 lb) 04/19/2018 1:16 PM CDT Height 165.1 cm (5' 5) 04/19/2018 1:16 PM CDT Body Mass Index 24.46 04/19/2018 1:16 PM CDT Plan of Treatment Upcoming Encounters Date Type Department Care Team (Late st Contact Info) Description 06/24/2024 10:15 AM CDT Appointment [place] [address] [place] [address] Michelle Shelton MD [address] [place] [address] Health Maintenance Due Date Last Done Comments Cervical Cancer Screening Due 1962 Colon Cancer Screening Plan Due 1962 Hep C Screening (Preventive Services) 1962 Mammogram 1962 HIV Screening (Preventive Services) 1978 Adult Preventive Visit 1980 Cholesterol 2007 Zoster/Shingles (1 of 2) 2012 COVID-19 Vaccine ( season) 2023 08/28/2022, 01/31/2022, 08/18/2021, Additional history exists Influenza (Season Ended) 2024 022, 08/06/2021, 06/21/2020, Additional history exists DTaP/Tdap/Td (4 - [...] age to complete this topic Care Teams Acetone Recovery Worker Relationship Specialty Start Date End Date Albania Zavala MD [address] [place] [address] AYALA STEWART [address] PCP - General 08/09/12
--- OUTSIDE RECORDS SUMMARY | 2024-02-13 12:42 | XMS_ITS | Clinical Summary ---
Author Name Unknown Organization [employer] Address [place], [place] [address] Care Team Providers Care Payment Analyst Name Role Phone Aminata Coe PA-C Primary Care Provider [phone] Allergies No known active allergies Medications Medication [...] Comments Blood Pressure 128/78 09/30/2021 2:25 PM DITCHING MACHINE ENGINEER Pulse 64 09/30/2021 2:25 PM DITCHING MACHINE ENGINEER Temperature 36.9 ??C (98.4 ??F) 09/30/2021 2:25 PM CS T Respiratory Rate - - Oxygen Saturation 95% 09/30/2021 2:25 PM DITCHING MACHINE ENGINEER Inhaled Oxygen Concentration - - Weight 69.8 kg (153 lb 12.8 oz) 08/08/2016 9:32 AM DITCHING MACHINE ENGINEER Height 165.1 cm (5' 5) 08/08/2016 9:32 AM DITCHING MACHINE ENGINEER Body Mass Index 25.59 08/08/2016 9:32 AM DITCHING MACHINE ENGINEER Plan of Treatment Health Maintenance Due Date Last Done Comments HIV for age 15-65 1977 Hepatitis C screening for age 18-79 1980 Lipids for age 45-75 05/22/2011 05/22/2006 Zoster (shingles) series for age 50+ (1 of 2) 2012 Mammogram for age 45-75 09/04/2015 09/04/20 14 [facility] Tetanus booster 11/21/2016 11/21/2006 Depression screening for age 12+ 01/16/2017 01/17/2016 BMI (ht and wt on same day) for age 18+ 08/08/2017 08/08/2016, 03/23/2016, 01/17/2016 Pap test for age 21-65 11/10/2022 0, 11/10/2019, 07/29/2014, Additional history exists COVID-19 vaccine series ( season) 2023 01/31/2022, 01/15/2021, 12/25/2020 Influenza for age 50-64 06/01/2024 08/08/20 16, 08/05/2013, 07/08/2012, Additional history exists Fecal testing sDNA-FIT (Cologuard) for age 45-75 10/30/2025 10/30/2022 (Verified in Care Everywhere or Patient Record) Tdap Completed 11/21/2006 Pneumococcal series for age 6-64 Aged Out No longer eligible based on patient's age to complete this topic Procedures Procedure Name Priority Date/Time Associated Diagnosis Comments NETWORK TECHNICAL ANALYST THIN PREP PAP SCREEN IMAGED Routine 11/10/2019 2:00 PM DITCHING MACHINE ENGINEER LIPID PANEL Timed 05/22/2006 12:21 PM CDT from Last 3 Months or Most Recently Relevant to Health Maintenance Results * NETWORK TECHNICAL ANALYST THIN PREP PAP SCREEN IMAGED (11/10/2019 2:00 PM DITCHING MACHINE ENGINEER) Case Report Gynecologic Cytology Report ? Case: [id number] ? Authorizing Provider: ??Iza Baker MD ?Collected: ? 11/10/2019 1400 ? Ordering Location: ? [facility] ?Received: ?11/11/2019 1747 ? First Screen: ?Brianna Summers ? Specimen: ?NETWORK TECHNICAL ANALYST ThinPrep Vial Screening, Cervical/Vaginal ? 11/20/2019 2:21 PM DITCHING MACHINE ENGINEER [facility] INTERPRETATION/ RESULT NEGATIVE FOR INTRAEPITHELIAL LESION OR MALIGNANCY (NIL) (none) 11/20/2019 2:[address] [facility] IMEN ADEQUACY Satisfactory for evaluation No endocervical component seen 11/20/2019 2:21 PM [facility] HPV REQUEST HPV and PAP 11/20/2019 2:21 PM [facility] Last Pap Date 07/29/2014 11/20/2019 2:[address] [facility] Last Pap Result NIL 0 2:21 PM [facility] Menstrual Status 11/20/2019 2:[address] [facility] Comment:menopause Additional Information 11/20/2019 2:[address] [facility] Comment: Interpreted at [facility] - [address], [place] [address] Automated Review Successful 11/20/2019 2:[address] [facility] Comment:Specimen processed s uccessfully by automated commanding officer motorized squad device, ThinPrep Imaging System, [employer] ANCILLARY TESTING NETWORK TECHNICAL ANALYST HPV Ordered, Please see separate report 11/20/2019 2:[address] [facility] Note The pap test is a screening technique, not a diagnostic procedure. It is used primarily to screen for squamous cancers and precursor lesions. Published studies have shown that it is subject to both false negative and false positive results. The pap test should not be used as the sole means to diagnose or exclude pre-malignant and malignant lesions. 11/20/2019 2:21 PM [facility] Other (Cervical/Vagina l) 11/10/2019 2:00 PM DITCHING MACHINE ENGINEER 11/11/2019 5:47 PM DITCHING MACHINE ENGINEER Iza Baker MD PATHOLOGY/CYTOLOGY [facility] [address] [place] [address], [place] * (ABNORMAL) LIPID PANEL (05/22/2006 12:21 PM CDT) CHOLESTEROL,TOTAL 197 110 - 199 mg/dL [facility] TRIGLYCERIDES 180(H) <150 mg/dL [facility] HDL CHOLESTEROL 37(L) >40 mg/dL [facility] CHOL/HDL RATIO 5.32(H) <4.51 [facility] LDL CHOLESTEROL 124 <131 mg/dL [facility] PATIENT STATUS Fasting [facility] 05/22/2006 12:2 1 PM CDT 05/22/2006 12:21 PM CDT Waldo Sanders MD CHEMISTRY [facility] [address] [place] [address] from Last 3 Months or Most Recently Relevant to Health Maintenance Care Teams Payment Analyst Relationship Specialty Start Date End Date Aminata Coe PA-C [address] [place] [phone] PCP - General Physician Watch Mechanic 03/22/23
--- OUTSIDE RECORDS SUMMARY | 2024-02-13 12:42 | XMS_ITS | Clinical Summary ---
Author Name Unknown Organization [facility] Address [address] [place] [address] Care Team Providers Care Patient Companion Name Role Phone Aminata Coe P.A.-C. Primary Care Provider Source Comments Patient records contain information from all sites at [facility]. For routine questions regarding patient records, call [phone] during business hours, M-F 8:00 AM - 5:00 PM Central Time. Record requests for emergency care only can be directed to [phone] at any time.[facility] Allergies Active Allergy Reactions Criticality Noted [...] Mom: high cholesterol, no h/o stroke or [place], age 80s Dad: on statin, 82 yo, [...] to guide decision about statin therapy (consider [facility] self pay option for $100) --if calcifications [...] 007 Overview: (r) breast. (2004) Goes to [facility] 12/2021: Skin lesion biopsied, result: [...] Jaime Other cancer Father Clayton Jaime Father 2014 Sleep apnea Father Clayton Jaime Coronary artery [...] week 07/21/2020 How often do you attend caodaism or church serv ices? Never 07/21/2020 Do you belong to any clubs o r organizations such as caodaism groups, unions, fraternal or athletic groups, or [...] Answer Date Recorded PHQ-2 Score 0 01/31/2022 [facility] of Occupat ional Health - [...] your living situation today? I have a [facility] place to live 08/02/2023 Education Answer [...] CDT Oxygen Saturation 97% 10/28/2020 10:33 AM TELEMETRY TECH Inhaled Oxygen Concentration - - Weight 65.5 [...] CDT Hyperlipidemia COLOGUARD Routine 10/23/2022 7:00 AM TELEMETRY TECH Screening Cancer Colon EXT THINPREP W/HPV CO-TEST [...] Sevilla M.D., M.P.H. LAB BLOOD NON ADD-ON [facility] [address] [place] [address], [facility] [place] [address] [place] [address] * (ABNORMAL) Lipid Panel (07/04/2023 9:17 AM [...] for FH and FDB is available through [facility]. ----REFERENCE VALUE---- Desirable: <100 mg/dL [...] M.P.H. LAB BLOOD ADD-ON Performing Organization Address [facility] Co de Phone Number [facility] [address] [place] [address], [facility] [place] [address] [place], [place] [id number] * Thyroid Function [place] (07/04/2023 9:17 AM CDT) TSH, Sensitive 2.6 0.3 - 4.2 mIU/L 07/04/2023 12:52 PM CDT OWAT Blood (Blood, Venous) 07/04/2023 9:17 AM CDT 07/04/2023 11:42 AM CDT Susu Sevilla M.D., M.P.H. LAB BLOOD ADD-ON Performing Organization Address [facility] Co de Phone Number [facility] [address], [place] [address], [facility] [place] [address] [place] [address] * Cologuard-Sent Out Lab (10/23/2022 7:00 AM TELEMETRY TECH) Result Negative Negative 10/27/2022 5:39 PM TELEMETRY TECH EXLI Comment: NEGATIVE TEST RESULT. A negative [...] Oates et al, N Engl J Med 2014;370(14):0377-5707) The normal value (reference range) for this assay is negative. COLOGUARD RE-SCREENING RECOMMENDATION: Periodic colorectal cancer screening is an important part of preventive healthcare for asymptomatic individuals at average risk for colorectal cancer. ??Following a negative Cologuard result, the [place] [employer] Society and U.S. Multi-Society Task Force screening guidelines recommend a Cologuard re-screening interval of 3 years. References: [place] [employer] Guideline for Colorectal Cancer Screening: https://www.cancer.org/cancer/mdmtz-brrzaz-dgffzy/detection- diagnosis-staging/acs-recommendations.html.; Jose DK, Du HOLLINS, Mara TownsendK, Colorectal Cancer Screening: Recommendations for Physicians and Patients from the U.S. Multi-Society Task Force on Colorectal Cancer Screening , Am J Gastroenterology 2017; 112:4756-8566. TEST DESCRIPTION: Composite algorithmic analysis of stool [...] colonoscopy. (Juanita Benitez, N Engl J Med 2014;370(14):3879-8283.) Cologuard may produce a false negative or false positive result (no colorectal cancer or precancerous polyp present at colonoscopy follow up). A negative Cologuard test result does not guarantee the absence of CRC or advanced adenoma (pre-cancer). The current Cologuard screening interval is every 3 years. ([place] [employer] Society and U.S. Multi-Society Task Force). Cologuard performance data in a 10,000 patient pivotal study using colonoscopy as the reference method can be accessed at the following location: www.Deeplink/results. Additional description of the Cologuard test process, warnings and precautions can be found at www.cologuard.com. Stool (Stool) 10/23/2022 7:0 0 AM TELEMETRY TECH 10/24/2022 1:53 PM TELEMETRY TECH Aminata Coe P.A.-C. LAB BODY FLUIDS AND STOOLS ORDERABLES [facility] [address] [place] [address] [employer] [employer] [address] [facility], [address] [place] [address] * EXT ThinPrep w/HPV Co-Test Screen (11/10/2019) [...] LOS N/A Mammography Ordering Provider External [facility] IMG BI P ROCEDURES from Last 3 Months or Most Recently Relevant to Health Maintenance Care Teams Patient Companion Relationship Specialty Start Date End Date Aminata Coe P.A.-C. [address] [place] [phone] PCP - General Internal Medicine 09/26/22
== END 2024-02-13 08:16 | disposition home or self-care (01) ==
LOC: NFLDREF 12:40
PROVIDERS: PCP Internal Medicine; Referring Provider Internal Medicine; Visit Provider Internal Medicine
DX: E78.5 Hyperlipidemia, unspecified (principal)
CPT/HCPCS: 80061

== ENCOUNTER 2024-07-10 09:20 | Outpatient (CLI) | payer OTHER, SELFPAY ==
--- OUTSIDE RECORDS SUMMARY | 2024-07-10 09:25 | XMS_ITS ---
Author Organization [facility] Address [address] [place] [address] Care Team Providers Care Lead Technologist In Cytogenetics Name Role Phone Unavailable Unavailable Unavailable Surgery Details Not on file Complications Check Surgery Details section. Procedure Estimated Blood Loss Check Surgery Details section. Procedure Findings Check Surgery Details section. Procedure Specimens Taken Check Surgery Details section.
--- OUTSIDE RECORDS SUMMARY | 2024-07-10 09:25 | XMS_ITS | Clinical Summary ---
Author Organization [facility] Address [address] [address] Care Team Providers Care Senior Revenue Accountant Name Role Phone Albania Zavala MD Primary Care Provider [phone] Source Comments You are receiving this document as you are listed as the primary care provider,follow-up provider, or the patient has been referred to you for consultation.This is in compliance with the Medicare and[facility] E[facility] Incentive Program,which states Providers who transition their patient to another setting of careor provider of care or refers their patient to another provider of care shouldprovide summary care record for each transition of care or referral. [facility] Allergies Active Allergy Reactions Criticality Noted Date [...] days after 8 Tablet 1 06/23/2022 Active atorvastatin (LIPITOR) 10 MG tablet Take 1 Tablet (10 mg) by mouth daily. Active Active Problems Problem Noted Date Diagnosed Date History of dysplastic nevus 06/14/2020 Overview (06/14/2020): DN, moderate atypia, right lateral thigh, s/p excision 05/2018. Personal history of malignant melanoma of skin 0 05/30/2013 Overview (06/20/2021): Right breast, s/p excision at [facility] 2005 Encounters Date Type Department Care Team Description 07/07/2024 10:15 AM CDT Office Visit [place] [id number] Dermatology [address] [place], [place] [id number] Mireille Peña MD Sun-damaged skin (Primary Dx); Tran angioma; Multiple nevi; Seborrheic keratosis; Skin exam, screening for cancer; Personal history of malignant melanoma of skin; Seborrheic dermatitis; Dermatofibroma; AK (actinic keratosis) 06/26/2024 Telephone [facility] - Dermatology [address] [place] [address] Michelle Shelton MD Clinical Question - Miscellaneous from Last 3 Months Social History Tobacco Use Types Packs/Day Years [...] Comments Blood Pressure 127/83 08/17/2016 12:18 PM TELEPHONE CLERK Pulse - - Temperature 36.8 ??C (98.3 [...] Care Team (Late st Contact Info) Description 09/04/2024 9:45 AM TELEPHONE CLERK Appointment [facility] Derm[facility] [address] [place] [address] Michelle Shelton MD [address] [place] [address] Health Maintenance Due Date Last Done Comments Cervical Cancer Screening Due 1962 Colon Cancer Screening Plan Due 1962 Hep C Screening (Preventive Services) 1962 Mammogram 1962 HIV Screening (Preventive Services) 1978 Adult Preventive Visit 1980 Cholesterol 2007 Zoster/Shingles (1 of 2) 2012 COVID-19 Vaccine ( season) 2024 07/23/2023, 08/28/2022, 01/31/2022, Additional history exists Influenza (#1) 2024 06/28/2023, 07/01, 08/06/2021, Additional history exists DTaP/Tdap/Td (4 - Tdap) 07/14/2025 07/14/20 15, 11/21/2006, 11/21/2006 RSV (1 - 1-dose 75+ series) 2037 HepA Aged Out No longer eligi ble based on patient's age to complete this topic HepB Aged Out No longer eligi ble based on patient's age to complete this topic Hib Aged Out No longer eligi ble based on patient's age to complete this topic IPV (Polio) Aged Out No longer eligi ble based on patient's age to complete this topic RSV Aged Out No longer eligi ble based on patient's age to complete this topic MCV4 Aged Out No longer eligi ble based on patient's age to complete this topic Pneumococcal Aged Out No longer eligi ble based on patient's age to complete this topic Care Teams Senior Revenue Accountant Relationship Specialty Start Date End Date Albania Zavala MD [address] [place] [address] AYALA STEWART [address] PCP - General 08/09/12
--- OUTSIDE RECORDS SUMMARY | 2024-07-10 09:25 | XMS_ITS | Encounter Summary ---
Author Organization [facility] Address [address] [place] [address] Care Team Providers Care Electrician Aircraft Name Role Phone None Reported, Pcp Primary Care Provider Unavail able Encounter Details Date Type Department Care Team (Late st Contact Info) Description 06/25/2024 Clinical Communication [facility] [place], [place] [address] [place] [phone] Aminata Coe MPAS, P.A.-C. [address] [place] [phone] Social History Tobacco Use Types Packs/Day Years Used Date Smoking Tobacco: Never Smokeless Tobacco: Never Alcohol Use Standard Drinks/Week Comments Yes 1 [...] How often do you attend cheondoism or gnosticism serv ices? Never 07/21/2020 Do you belong [...] Answer Date Recorded PHQ-2 Score 0 01/31/2022 [facility] of Occupat ional Health - Occupational [...] your living situation today? I have a [facility] place to live 08/02/2023 Education Answer [...] encounter Miscellaneous Notes * Telephone Encounter - Maryanne Esquivel R.N. - 06/25/2024 9:54 AM CDT Per patient message on 12/03/23 patient established care with [facility] (they do not participate in Care Everywhere so unable to see future appointments) Please PCP elsewhere. documented in this encounter Plan of Treatment Not on file documented as of this encounter Visit Diagnoses Not on filedocumented in this encounter Care Teams Electrician Aircraft Relationship Specialty Start Date End Date None Reported, Pcp PCP - General Family Medicine 06/25/24 documented as of this encounter
--- OUTSIDE RECORDS SUMMARY | 2024-07-10 09:25 | XMS_ITS | Encounter Summary ---
Author Organization [facility] Address [address] [place] [address] Care Team Providers Care Powerhouse Laborer Name Role Phone Aminata Coe, P.A.-C. Primary Care Pro vider Encounter Details Date Type Department Care Team (Late st Contact Info) Description 04/08/2024 Orders Only [facility] PCP TH MNT Aminata Coe MPAS, P.A.-C. [address] [place] [phone] Hypothyroidism Social History Tobacco Use Types Packs/Day [...] week 07/21/2020 How often do you attend islam or jehovah's witness serv ices? Never 07/21/2020 Do you belong to any clubs o r organizations such as islam groups, unions, fraternal or athletic groups, or [...] Answer Date Recorded PHQ-2 Score 0 01/31/2022 [facility] of Occupat ional Health - Occupational Stress [...] your living situation today? I have a [facility] place to live 08/02/2023 [...] Hypothyroidism documented in this encounter Care Teams Powerhouse Laborer Relationship Specialty Start Date End Date Aminata Coe MPAS, P.A.-C. [address] [place] [phone] PCP - General Internal Medicine 09/26/22 06/24/24 documented as of this encounter
--- OUTSIDE RECORDS SUMMARY | 2024-07-10 09:25 | XMS_ITS | Clinical Summary ---
Author Organization [facility] Address [address] [place] [address] Care Team Providers Care Continuity Manager Name Role Phone None Reported, Pcp Primary Care Provider Unavail able Source Comments Patient records contain information from all sites at [facility]. For routine questions regarding patient records, call [phone] during business hours, M-F 8:00 AM - 5:00 PM Central Time. Record requests for emergency care only can be directed to [phone] at any time.[facility] Allergies Active Allergy Reactions Criticality Noted Date [...] Date Gastroesophageal Reflux Disease 04/16/2018 Hyperlipidemia 02/20/2010 Overview (01/23/2022): Images from the original note were not included. 06/21/2020: Lipid Profile 270 TG 212 LDL 185 HDL 43 TSH 3.05 Mom: high cholesterol, no h/o stroke or AL, age 80s Dad: on statin, 82 yo, [...] Hyperlipidemia and family history of CAD. ?? Assessment & Plan (10/30/2020 3:37 PM DISTRIBUTION CENTER ASSISTANT): ASCVD risk is low at 3.3%, but [...] to guide decision about statin therapy (consider [facility] self pay option for $100) --if calcifications present, start statin; if not present, continue to optimize lifestyle habits --referral to familial hyperlipidemia clinic is appropriate at anytime --any children/siblings should be screening for lipids if they haven't already done so Assessment & Plan (07/21/2020 1:03 PM CDT): ASCVD risk is low at 3.3%, but LDL is 185, up from 124 in 2006. Hyperlipidemia and family history are her only CV risk factors. --optimize diet and exercise to lower cholesterol --repeat lipids in 3 months --if lipids remain elevated with LDL > 160, obtain Coronary Calcium Scan to guide decision about statin therapy ([facility] option for $100) Hypothyroidism 02/20/2010 Overview (10/30/2020): Longstanding, at least since 2007. 10/22/2020 TSH 3.75. Assessment & Plan (10/30/2020 3:29 PM DISTRIBUTION CENTER ASSISTANT): --labs 10/22/2020 TSH 3.75 --continue levothyroxine 75mcg daily --annual TSH Psoriasis 02/20/2010 Melanoma Of Skin Cancer Personal History 007 Overview (01/31/2022): (r) breast. (2004) Goes to [facility] D[facility] 12/2021: Skin lesion biopsied, result: Solar lentigo Assessment & Plan (10/30/2020 3:28 PM DISTRIBUTION CENTER ASSISTANT): --annual screening skin exam --sun protection measures Resolved Problems Problem Noted Date Diagnosed Date Resolved Date Pain Knee Left 04/22/2018 10/28/2020 Keratosis Seborrheic 04/22/2018 021 Nevus Dysplastic 04/22/2018 10/28/2020 Health Maintenance Examination Adult 04/16/2018 10/28/2020 Dermatitis Contact 04/16/2018 Overview (04/16/2018): Both feet Pain Chest Atypical 04/16/2018 10/28/19 21 Overview (04/16/2018): Chest pressure in evening Elevated Blood Pressure 04/16/201810/02 Melanoma Skin 02/20/2010 10/28/2020 Overview (02/20/2017): Melanoma of Skin, Site Unspecified Encounters Date Type Department Care Team Description 06/25/2024 Clinical Communication Department of Community Internal Medicine in [place] [address] [place] [address] Aminata Coe MPAS, P.A.-C. from Last 3 Months Immunizations Name Administration Dates Next Due DTaP (Infanrix, Tripedia) 11/21/2006 H1N1 All Forms 09/17/2009 Influenza TIV (IM) 08/05/2013, 2,07/25/2011,2009 Influenza, Injectable, Quadrivalent 08/08/2016 Influenza, Seasonal, Injectable 08/05/2013,07/08,09/02/2010 Influenza, Unspecified 08/15/2013,06/16/2009 SARS-COV-2 (COVID-19) - PFIZ ER (Discontinued)(12 years or older) 01/15/2021,12/25/2020 SARS-COV-2 (COVID-19) - PFIZ ER TS(Discontinued)(12 years or older) 01/31/2022 Tdap 07/14/2015,11/21/2006 influenza trivalent high dos e (HD)(PF) 07/15/2015 influenza trivalent vaccine (6 months and older)(PF) 07/25/2011 influenza vaccine QV(FLUBLOK ) (18 years or [...] Dementia Mother Lisy Jaime Depression Mother Lisy Jamie After her hu sband was diagnosed with [...] week 07/21/2020 How often do you attend mandaen or anglican serv ices? Never 07/21/2020 Do you belong to any clubs o r organizations such as mandaen groups, unions, fraternal or athletic groups, or [...] Answer Date Recorded PHQ-2 Score 0 01/31/2022 [facility] [place] of Occupat ional Health - Occupational Stress [...] your living situation today? [facility] 08/02/2023 Education Answer [...] CDT Oxygen Saturation 97% 10/28/2020 10:33 AM DISTRIBUTION CENTER ASSISTANT Inhaled Oxygen Concentration - - Weight 65.5 [...] 08/13/2022 08/13/2012 Depression Screening (Annual PHQ-2) 10/01/2023 COVID-19 Vaccine ( season) 2024 07/23/2023, 08/28/2022, 01/31/2022, Additional history exists Influenza Vaccine (#1) 2024 , 07/13/2022, 08/06/2021, Additional history exists Thyroid Stimulating Hormone (TSH) test for thyroid [...] 07/04/2028 07/04/2023, 07/04/2023, 01/31/2023, Additional history exists Pneumococcal vaccine (0-64 years) Aged Out No longer eligible based on patient's age to complete this topic Procedures Procedure Name Priority Date/Time Associated Diagnosis Comments GLUCOSE, FASTING, S/P Routine 07/04/2023 9:19 AM CDT Hyperlipidemia LIPID PANEL, S Routine 07/04/2023 9:17 AM CDT Hyperlipidemia THYROID FUNCTION CASCADE, S Routine 07/04/2023 9:17 AM CDT Hyperlipidemia COLOGUARD Routine 10/23/2022 7:00 AM DISTRIBUTION CENTER ASSISTANT Screening Cancer Colon EXT THINPREP W/HPV CO-TEST [...] Sevilla M.D., M.P.H. LAB BLOOD NON ADD-ON [facility] [address] [place] [address], [place] OW[place] [facility] [place] [address] [place] [address] * (ABNORMAL) Lipid Panel (07/04/2023 9:17 AM [...] for FH and FDB is available through [facility]. ----REFERENCE VALUE---- Desirable: <100 mg/dL Above [...] Sevilla M.D., M.P.H. LAB BLOOD ADD-ON [facility] [address] [place] [address], [facility] OWAT [facility] [place] [address] [place] [address] * Thyroid Function [place] (07/04/2023 9:17 AM CDT) TSH, Sensitive 2.6 0.3 - 4.2 mIU/L 07/04/2023 12:52 PM CDT OW Blood (Blood, Venous) 07/04/2023 9:17 AM CDT 07/04/2023 11:42 AM CDT Susu Sevilla M.D., M.P.H. LAB BLOOD ADD-ON [facility] [address] [place] [address], [facility] OWAT [facility] [place] [address] [place] [address] * Cologuard-Sent Out Lab (10/23/2022 7:00 AM DISTRIBUTION CENTER ASSISTANT) Pathologist [facility] Result Negative Negative 10/27/2022 5:39 PM DISTRIBUTION CENTER ASSISTANT EXLI Comment: NEGATIVE TEST RESULT. A negative [...] Oates et al, N Engl J Med 2014;370(14):2830-8013) The normal value (reference range) for this assay is negative. COLOGUARD RE-SCREENING RECOMMENDATION: Periodic colorectal cancer screening is an important part of preventive healthcare for asymptomatic individuals at average risk for colorectal cancer. ??Following a negative Cologuard result, the [place] [employer] Society and U.S. Multi-Society Task Force screening guidelines recommend a Cologuard re-screening interval of 3 years. References: [place] [employer] Guideline for Colorectal Cancer Screening: https://www.cancer.org/cancer/caloz-lzibil-umgbdr/detection- diagnosis-staging/acs-recommendations.html.; Jose RIOS, Du HOLLINS, Mara NELSON, Colorectal Cancer Screening: Recommendations for Physicians and Patients from the U.S. Multi-Society Task Force on Colorectal Cancer Screening , Am J Gastroenterology 2017; 112:6651-9797. TEST DESCRIPTION: Composite algorithmic analysis of stool [...] screened with both Cologuard and colonoscopy. (Juanita Werner. et al, N Engl J Med 2014;370(14):2291-6525.) Cologuard may produce a false negative or false positive result (no colorectal cancer or precancerous polyp present at colonoscopy follow up). A negative Cologuard test result does not guarantee the absence of CRC or advanced adenoma (pre-cancer). The current Cologuard screening interval is every 3 years. ([place] Cancer Society and U.S. Multi-Society Task Force). Cologuard performance data in a 10,000 patient pivotal study using colonoscopy as the reference method can be accessed at the following location: www.Clickatell/results. Additional description of the Cologuard test process, warnings and precautions can be found at www.cologuard.com. Stool (Stool) 10/23/2022 7:0 0 AM DISTRIBUTION CENTER ASSISTANT 10/24/2022 1:53 PM DISTRIBUTION CENTER ASSISTANT Aminata Saravanan YOO P.A.-C. LAB BODY FLUIDS AND STOOLS ORDERABLES [employer] [address] [place] [address] EXLI [employer] [address] [facility], [address] [place] [address] * EXT ThinPrep w/HPV Co-Test Screen (11/10/2019) [...] RST LOS N/A Mammography Ordering Provider External M.D. IMG BI P ROCEDURES from Last 3 Months or Most Recently Relevant to Health Maintenance Care Teams Continuity Manager Relationship Specialty Start Date End Date None Reported, Pcp PCP - General Family Medicine 06/25/24
--- OUTSIDE RECORDS SUMMARY | 2024-07-10 09:25 | XMS_ITS | Referral Summary ---
Author Organization [facility] Address [address] [place] [address] Care Team Providers Care Spouting Installer Name Role Phone None Reported, Pcp Primary Care Provider Unavail able Source Comments Patient records contain information from all sites at [facility]. For routine questions regarding patient records, call [phone] during business hours, M-F 8:00 AM - 5:00 PM Central Time. Record requests for emergency care only can be directed to [phone] at any time.[facility] Encounters Date Type Department Care Team Description 06/25/2024 Clinical Communication Department of Community Internal Medicine in [place] [address] [place] [id number] Aminata Coe MPAS, P.A.-C. from Last 3 Months Allergies Active Allergy [...] Mom: high cholesterol, no h/o stroke or [place], age 80s Dad: on statin, 82 yo, [...] ?? Assessment & Plan (10/30/2020 3:37 PM BEEF BREAKER): ASCVD risk is low at 3.3%, but [...] to guide decision about statin therapy (consider [facility] self pay option for $100) --if calcifications [...] to guide decision about statin therapy (consider [facility] self pay option for $100) Hypothyroidism 02/20/2010 Overview (10/30/2020): Longstanding, at least since 2007. 10/22/2020 TSH 3.75. Assessment & Plan (10/30/2020 3:29 PM BEEF BREAKER): --labs 10/22/2020 TSH 3.75 --continue levothyroxine 75mcg daily --annual TSH Psoriasis 02/20/2010 Melanoma Of Skin Cancer Personal History 007 Overview (01/31/2022): (r) breast. (2004) Goes to [facility] D[facility] 12/2021: Skin lesion biopsied, result: Solar lentigo Assessment & Plan (10/30/2020 3:28 PM BEEF BREAKER): --annual screening skin exam --sun protection measures Resolved Problems Problem Noted Date Diagnosed Date Resolved Date Pain Knee Left 04/22/2018 10/28/2020 Keratosis Seborrheic 04/22/2018 021 Nevus Dysplastic 04/22/2018 10/28/2020 Health Maintenance Examination Adult 04/16/2018 10/28/2020 Dermatitis Contact 04/16/2018 Overview (04/16/2018): Both feet Pain Chest Atypical 04/16/2018 10/28/19 Overview (04/16/2018): Chest pressure in evening Elevated Blood Pressure 04/16/[address]82 05/2021 Melanoma Skin 02/20/2010 10/28/2020 Overview (02/20/2017): Melanoma of Skin, Site Unspecified Immunizations Name [...] How often do you attend yazdanism or episcopalian serv ices? Never 07/21/2020 Do you belong [...] Answer Date Recorded PHQ-2 Score 0 01/31/2022 [facility] - Occupational [...] your living situation today? [facility] a [facility] place to live 08/02/2023 Education Answer [...] CDT Oxygen Saturation 97% 10/28/2020 10:33 AM BEEF BREAKER Inhaled Oxygen Concentration - - Weight 65.5 [...] CDT Hyperlipidemia COLOGUARD Routine 10/23/2022 7:00 AM BEEF BREAKER Screening Cancer Colon EXT THINPREP W/HPV CO-TEST [...] LAB BLOOD NON ADD-ON Performing Organization Address City/State/[facility] Co de Phone Number [facility] [address] [place] [address], [place] OWAT [facility] [place] [address] [place] [address] * (ABNORMAL) Lipid Panel (07/04/2023 9:17 AM [...] for FH and FDB is available through [facility]. ----REFERENCE VALUE---- Desirable: <100 mg/dL Above [...] Susu Sevilla M.D., M.P.H. LAB BLOOD ADD-ON [facility] [address] [place] [address], [facility] OWAT [facility] [place] [address] [place] [address] * Thyroid Function [place] (07/04/2023 9:17 AM CDT) TSH, Sensitive 2.6 0.3 - 4.2 mIU/L 07/04/2023 12:52 PM CDT OWAT Blood (Blood, Venous) 07/04/2023 9:17 AM CDT 07/04/2023 11:42 AM CDT Susu Sevilla M.D., M.P.H. LAB BLOOD ADD-ON [facility] [address] [place] [address], [place] OW[facility] [place] [address] [place] [address] * Cologuard-Sent Out Lab (10/23/2022 7:00 AM BEEF BREAKER) [facility] Signature Result Negative Negative 10/27/2022 5:39 PM BEEF BREAKER EXLI Comment: NEGATIVE TEST RESULT. A negative [...] Oates et al, N Engl J Med 2014;370(14):9089-2120) The normal value (reference range) for this assay is negative. COLOGUARD RE-SCREENING RECOMMENDATION: Periodic colorectal cancer screening is an important part of preventive healthcare for asymptomatic individuals at average risk for colorectal cancer. ??Following a negative Cologuard result, the [place] [employer] and U.S. Multi-Society Task Force screening guidelines recommend a Cologuard re-screening interval of 3 years. References: [place] [employer] Guideline for Colorectal Cancer Screening: https://www.cancer.org/cancer/iybmo-tudqxg-nuoomn/detection- diagnosis-staging/acs-recommendations.html.; Jose DK, Du CR, Mara TownsendK, Colorectal Cancer Screening: Recommendations for Physicians and Patients from the U.S. Multi-Society Task Force on Colorectal Cancer Screening , Am J Gastroenterology 2017; 112:0046-7189. TEST DESCRIPTION: Composite algorithmic analysis of stool [...] screened with both Cologuard and colonoscopy. (Juanita Iglesisa al, N Engl J Med 2014;370(14):6391-5128.) Cologuard may produce a false negative or false positive result (no colorectal cancer or precancerous polyp present at colonoscopy follow up). A negative Cologuard test result does not guarantee the absence of CRC or advanced adenoma (pre-cancer). The current Cologuard screening interval is every 3 years. ([place] [employer] and U.S. Multi-Society Task Force). Cologuard performance data in a 10,000 patient pivotal study using colonoscopy as the reference method can be accessed at the following location: www.Stylect.[employer]/results. Additional description of the Cologuard test process, warnings and precautions can be found at www.LendingStaroguard.com. Stool (Stool) 10/23/2022 7:0 0 AM BEEF BREAKER 10/24/2022 1:53 PM BEEF BREAKER Aminata YOO, P.A.-C. LAB BODY FLUIDS AND STOOLS ORDERABLES [employer] [address] [place] [address] EXLI [employer] [address] [place] [address], [address] [place] [address] * EXT ThinPrep w/HPV Co-Test Screen (11/10/2019) [...] Recently Relevant to Health Maintenance Care Teams Spouting Installer Relationship Specialty Start Date End Date None Reported, Pcp PCP - General Family Medicine 06/25/24
--- OUTSIDE RECORDS SUMMARY | 2024-07-10 09:25 | XMS_ITS | Encounter Summary ---
Author Organization [employer] Address [address], [place] [address] Care Team Providers Care Vehicle Sales Professional Name Role Phone Albania Zavala MD Primary Care Provider [phone] Reason for Visit * Reason Comments Skin Check FBE- spot of concern on the left thigh, she has a brown spot on the forehead, she has age spots on her hands, a bump on the right forearm The patient has a history of of MM Encounter Details Date Type Department Care Team (Late st Contact Info) Description 07/07/2024 10:15 AM CDT Office Visit [place] [address] [place] [address] [place] [address] [place], [place] [id number] Sun-damaged skin (Primary Dx); Tran angioma; Multiple nevi; Seborrheic keratosis; Skin exam, screening for cancer; Personal history of malignant melanoma of skin; Seborrheic dermatitis; Dermatofibroma; AK (actinic keratosis) Social History Tobacco Use Types Packs/Day Years [...] this encounter Patient Instructions * Patient Instructions* Mireille Peña MD - 07/07/2024 10:15 AM CDT Seborrheic dermatitis. This is a benign skin condition. It is a common, chronic or relapsing form of eczema/dermatitis that mainly affects the sebaceous (oil glands) of the scalp, face, and trunk. There are infantile and adult forms of seborrheic dermatitis. It is sometimes associated with psoriasis. Infantile seborrhoeic dermatitis affects babies under the age of 3 months and usually resolves by 6-12 months of age. (Fili cap) Adult seborrhoeic dermatitis tends to begin in late adolescence. Prevalence is greatest in young adults and in the elderly. It is more common in males than in females. The following factors are sometimes associated with severe adult seborrhoeic dermatitis: Oily skin Familial history of seborrheic dermatitis or psoriasis Immunosuppression: organ transplant recipient, human immunodeficiency virus (HIV) infection and patients with lymphoma Neurological and psychiatric diseases: Parkinson disease, tardive dyskinesia, depression, epilepsy,facial nerve palsy, spinal cord injury and congenital disorders such as Down syndrome Lack of sleep, and stressful events. Treatment: Older kids/Adults: 1) Exfoliate scalp once per week - Glycolic acid (such as biolage scalp sync purifying scalp concentrate) can help exfoliate scalp to remove scales - best to massage area for 5 minutes, let sit for 15 minutes and then shampoo/rinse - Salicylic acid shampoo (ie: neutrogena Tsal) - can add on a scalp brush to improve penetration to the scalp 2) Alternate shampoos (head and shoulders, ketoconazole, selsun blue) that help balance malessezia yeast on the scalp - Leave on shampoo for 2-3 minutes then rinse off - Use shampoo only on scalp, not ends. Conditioner only on ends. Can apply oil to ends if getting too dry. - If you need something that kills yeast that is a leave on treatment rather than a shampoo you could consider an apple cider vinegar rinse 3) Add something anti-inflammatory for itching - Dermasmoothe oil turban treatment vs Lidex solution - Turban treatment: apply oil to scalp and cover with a shower cap, leave on overnight and rinse out in the am - Use daily for flares and then reduce to twice per week (if needed) for maintenance Apple cider vinegar is an all natural way to reduce yeast on the scalp that can cause itching, redness and flakiness. You can use it when you shower as an add- on treatment to your normal regimen or in between shampooings for individuals who cannot wash their hair more than once a week. You can makeyour own apple cider vinegar rinse or purchase a salon product (ie: Dphue apple cider vinegar rinse). The Stacie line also makes an apple cider vinegar scalp serum and shampoo/conditioner. Option 1: add on to normal hair regimen Combine 1/2 cup ACV with 1 1/2 cups of cool water (or purchase salon product) 2. Shampoo and rinse your hair as normal. 3. Pour the water and ACV mix on scalp 4. Don???t rinse your hair again. 5. Use leave-in conditioner if necessary. Option 2: Instead of shampooing Apply DPHUE scalp serum to scalp daily on non-shampoo days, can decrease to 1-2 time per week if doing well Skin Cancer: There are three different types of skin cancer: Basal cell carcinoma (BCC): BCCs may look like a flesh-colored, steffany-like bump or a pinkish patch of skin. BCCs are common on the head, neck, and arms, yet can form anywhere on the body, including the chest, abdomen, and legs. Squamous cell carcinoma (SCC): SCCs can be scaly, pink bumps that are tender and growing. They tendto form on skin that gets frequent sun exposure, such as the rim of the ear, face, neck, arms, chest, and back. SCC have the potential to spread from the skin. Melanoma: The mole that has gone bad, can look like the ugly duckling mole, or, the mole that doesn't look like your other moles. It can be a mole that is growing quickly or asymmetrically, getting multiple dark brown colors, bleeding, or has irregular borders. Warning signs include the ABCDEs: A - asymmetry - the mole does not look the same shape on both sides B - border - irregular border with jagged edges, streaks, cloud-shaped scalloped border C - color - dark black, multicolored, moles that are different colors from your other moles D - diameter - mole that are bigger than a pencil eraser (>6mm) E - evolution - the most important - please let us know of anything that is changing Sun Protection Photoprotective Clothing- Contain a UPF rating (like SPF but for clothing). This clothing is quick-dry, breathable, good for use at the beach or pool. This clothing can be expensive but significantly decreases the amount of sunscreen needed. Regular wide-brim hats and long sleeve shirts are also beneficial but may not be as tolerable in the heat. Avoiding midday sun from 10am to 4pm can decrease your amount of UV exposure and decrease your riskfor skin cancer and sun damage. Sunscreen Sunscreen- At a minimum SPF 30 for midday sun exposure. For sensitive skin or previous issues with sunscreens try sunscreen with only zinc and/or titanium as active ingredients (typically sensitive skin or baby sunscreens. What does broad spectrum mean? The best sunscreens protect against all UVB (Burning) rays and UVA (Aging, cAncer, tAnning) rays. What does SPF mean? SPF stands for ???Sun Protection Factor?? and represents the ability to screen only UVB (burning) rays. UVB rays are mostly blocked in all sunscreens, but only those that contain titanium dioxide, zinc oxide, mexoryl or Parsol 1789 (avobenzone) block the UVA spectrum. Zinc oxide is the best of all. Even though a sunscreen is labeled ???UVA/UVB Protection?? that is not entirely accurate because even partial protection allows this label. What SPF should I chose? Aim to get a sunscreen that is at least sun protection factor (SPF) 30. SPF 15 provides about 92-93% coverage, SPF 30 about 95-97% coverage, and SPF 45 about 98% coverage. That is to say, SPF 30 is not twice as good as SPF 15; think of it as a curve graph. If covering your whole body, you should beusing 30grams, or one ounce, which is how much is in one shot glass. Combination sunscreen-insect repellants are not recommended as sunscreen needs to be reapplied every 2 hours; insect repellant does not. Sunscreen is not recommended for infants under the age of 6 months. Use clothing, shade and sun avoidance for small infants. Sunscreen clothing and hats are also important for people of all ages. Sunscreen sprays are best for re-application only. Most people do not spray enough on to get good enough protection. Recommendation: Use a lotion-based sunscreen to get a good first/base layer. Vitamin D: We get vitamin D through the skin. If you do not get enough sun in the summer to get tanlines, you should take a vitamin D supplement: 400units for children and 1000units for adults per day. UVA BLOCKERS: Make sure your sunscreen has one of these active ingredients: Zinc Oxide (preferred) Titanium dioxide Parsol 178 (avobenzone) Mexoryl Everything else in the ???active ingredients?? box of a sunscreen label blocks UVB only. Examples of some good sunscreens Best Sunscreen Lotions: James Posay Anthelios 60 Melt-in Sunscreen Milk Supergoop Play SPF 50 Bull Frog Land Sport Quik Gel SPF 50 Coppertone Ultra Guard Lotion SPF 70 Equate Ultra Lotion SPF 50 Best [place] Sunscreens: Director Of Instructional Technology Jose David's [place] SPF 50+ Banana Boat SunComfort Clear UltraMist SPF 50+ Best Stick Sunscreen: Up & Up Kids Sunscreen Stick SPF 55 [place] Clear sunscreen stick SPF 50 Best Lip Sunscreen: Aquaphor Lip Protectant + Sunscreen Best Oxybenzone Free Sunscreen: [facility] Hydrating Lotion SPF 50 [facility] [place] Sheer Touch Ultra Radiance Lotion SPF 50 Best All-Natural Sunscreen: [place] Active Natural Mineral Cream SPF 30 Unscented (chemical-free) Recommended Sunscreens for Kids: Coppertone WaterBabies Pure & Simple Whipped [place] Kids #supersensitive Lotion SPF 30+ (chemical-free) Blue lizard sensitive (chemical free) Best Cheap Sunscreen: Equate ([employer]) Ultra Lotion SPF 50 Scalp Sunscreen Option: Supergoop Poof 100% Mineral Part powder (chemical-free) Hat Recommended Daily Facial Sunscreens (I underlined my personal favorites): Daryl FIGUEROA UV clear or UV elements (chemical-free) Intellishade original or pure physical (chemical-free) Supergoop Unseen sunscreen [place] urban environment - least greasy, lightest formulation that I have found Drunk elephant Umbra Sheer Physical Daily Defense SPF 30 (chemical-free) Cerave hydrating sheer tint mineral sunscreen SPF 30 (chemical-free) Oil of Olay Complete Daily Defense SPF 30 Sensitive Skin Director Of Instructional Technology Mani daily facial sunscreen SPF 40 invisible gel formula (great for hairy areas) Options for people who hate sunscreen (anything is better than nothing) Gel sunscreens (ie: Neutrogena Hydroboost Gel Sunscreen SPF 50, Director Of Instructional Technology Mani daily facial sunscreen SPF 40 invisible gel formula) Avoids white cast to sunscreen so good for darker skin types More spreadable so good for hairy types [place] sunscreens Faster to apply, less heavy but need to ensure adequate amount is used Powder sunscreens (ie: Colorscience Sunforgettable Total Protection [place]-on Shield SPF50 (chemicalfree)) For patients who report that sunscreen runs into eyes Not practical for your body but a good daily facial option or as a touch up over makeup Sun protective clothing and hats (ie: coolibar or any other brand that has UPF fabric) Kl[place]kin wash-on sunscreen shampoo, face and body wash SPF 30 Creams are best for dry skin and the face. Sticks are good to use around the eyes. Tinted or sheer sunscreens are best for darker skin types (to avoid white cast) - Cotz foam, SuperGoop unseen sunscreen Polypodium leucotomos: dietary supplement that reduces sun sensitivity and reduce risk of sun burn. Heliocare (sunscreen pill) Inner glow (gummies with niacinamide - also beneficial for skin cancer prevention): take 2 gummies daily and redose every 4 hours in cases of extended sun exposure Other recommendations regarding ideal sunscreen choice Gels are good for hairy areas, such as the scalp or male chest. Creams are best for dry skin and the face. Sticks are good to use around the eyes. 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 Nevus, non-neoplastic Multiple nevi Benign neoplasm of skin, site unspecified Seborrheic keratosis Other seborrheic keratosis Skin exam, screening for cancer Screening for malignant neoplasm of the skin Personal history of malignant melanoma of skin Seborrheic dermatitis Seborrheic dermatitis, unspecified Dermatofibroma Benign neoplasm of skin, site unspecified AK (actinic keratosis) Actinic keratosis documented in this encounter Care Teams Vehicle Sales Professional Relationship Specialty Start Date End Date Albania Zavala MD [address] [place] [id number] PCP - General 08/09/12 documented as of this encounter
--- OUTSIDE RECORDS SUMMARY | 2024-07-10 09:25 | XMS_ITS | Encounter Summary ---
Author Organization [employer] Address [address], [place] [address] Care Team Providers Care Material Clerk Name Role Phone Albania Zavala MD Primary Care Provider [phone] Reason for Visit * Reason Onset Date Comments Clinical Question - Miscellaneous 06/26/2024 Encounter Details Date Type Department Care Team (Late st Contact Info) Description 06/26/2024 Telephone [facility] - Dermatology [address] [place], [place] [phone] Michelle Shelton MD [address] [place] [phone] Clinical Question - Miscellaneous Social History Tobacco Use Types Packs/Day Years Used Date Smoking Tobacco: Never Smokeless Tobacco: Never Alcohol Use Standard Drinks/Week Comments No 0 (1 standard drink = 0.6 oz pur e alcohol) Sex and Gender Information Value Date Recorded Sex Assigned at Not on file Gender Identity Not on file Sexual Orientation Not on file documented as of this encounter Nursing Notes * Twyla Collado RN - 06/30/2024 11:57 AM CDT Called patient and assisted in scheduling for 10:15 am on Saturday 07/07. * Twyla Collado RN - 06/30/2024 8:18 AM CDT Voice mail left by patient to return call. * Michelle Quintanilla LPN - 06/27/2024 4:01 PM CDT I left a message for Reshma to call clinic at [phone] to schedule spot check. I offered Saturday 07/07 in Res Con. * Michelle Shelton MD - 06/27/2024 2:36 PM CDT Ok to work in for a spot check before her scheduled skin check. DDC or appt with residents ok. * Nahomi Cunningham RN - 06/26/2024 1:15 PM CDT Derm Triage of Telephone Call Last Visit Maximum visits displayed: 1 Date Type Department Provider Description 06/22/2023 Office Visit [place] [address] Dermatology Michelle Bond MD Diffuse photodamage of skin (Primary Dx); Tran angioma; ... Follow-up interval per last visit note: 06/24/24 -one year, no showed related to tied up with estatestuff (involving her family) Date(s) of failed/cancelled Derm appt: n/a Future Dermatology Appointments Provider Department Center 09/04/2024 9:45 AM Michelle Shelton MD [place] [address] Dermatology PN [id number] Name of Caller: Reshma Situation: pt has a melanoma history and she has been helping her mom/the estate of her mom. She missed her last visit and is asking if she can be seen sooner than August since she has spots of concern. She said she knows she needs to prioritize her own visits now. Background: has history of melanoma Assessment: spot of concern are on the leg, back, and the face. Triage recommendations given to the patient: Pt to wait to hear from care team about being seen sooner. If appointment is needed: Appointment options discussed with the patient, including offfering first available appt with previously seen clinician, and if appropriate, offering first available appt with any derm clinician. Care team given history can you please help pt get in sooner than August? Action needed from clinician: Care team given pt's history can you please help her get in sooner than August ? Pharmacy updated in Meds/Orders:yes Call Back Number if needed: [phone] Message OK: yes documented in this encounter Plan of Treatment Upcoming Encounters Date Type Department Care Team (Late st Contact Info) Description 09/04/2024 9:45 AM DESIGN TECH Appointment [facility] [address] D[address]ology [address] [place] [address] Michelle Shelton MD [address] [place] [phone] documented as of this encounter Visit Diagnoses Not on filedocumented in this encounter Care Teams Material Clerk Relationship Specialty Start Date End Date Albania Zavala MD [address] [place] [id number] PCP - General 08/09/12 documented as of this encounter
== END 2024-07-10 09:21 | disposition home or self-care (01) ==
PROVIDERS: PCP Internal Medicine; Visit Provider Physician Assistant
DX: Z01.419 Encounter for gynecological examination (general) (routine) without abnormal findings (principal); E03.9 Hypothyroidism, unspecified; E78.5 Hyperlipidemia, unspecified; F41.9 Anxiety disorder, unspecified; Z13.820 Encounter for screening for osteoporosis; Z13.29 Encounter for screening for other suspected endocrine disorder; Z13.9 Encounter for screening, unspecified
CPT/HCPCS: 80053; 82306; 84443

== ENCOUNTER 2024-08-05 13:07 | Outpatient (CLI) | payer OTHER, SELFPAY ==
--- OUTSIDE RECORDS SUMMARY | 2024-08-05 15:29 | XMS_ITS | Clinical Summary ---
Author Organization [employer] [facility] [email or web address] Address [place], [place] [address] Care Team Providers Care Supervisor Instant Potato Processing Name Role Phone Aminata Coe PA-C Primary Care Provider [phone] Allergies No known active allergies Medications Medication Sig Dispensed Refills Start Date End Date Status LEVOTHYROXINE 75 MCG TAB take 1 tablet (75mcg) by oral route once daily 0 Active Active Problems Problem Noted Date Diagnosed Date Unspecified hypothyroidism 11/21/2006 Personal history of malignant melanoma of skin 0 11/21/2006 Overview (11/21/2006): (r) breast Immunizations Name Administration Dates Next [...] Comments Blood Pressure 128/78 09/30/2021 2:25 PM ABORIGINAL LIAISON OFFICER Pulse 64 09/30/2021 2:25 PM ABORIGINAL LIAISON OFFICER Temperature 36.9 ??C (98.4 ??F) 09/30/2021 2:25 PM CS T Respiratory Rate - - Oxygen Saturation 95% 09/30/2021 2:25 PM ABORIGINAL LIAISON OFFICER Inhaled Oxygen Concentration - - Weight 69.8 kg (153 lb 12.8 oz) 08/08/2016 9:32 AM ABORIGINAL LIAISON OFFICER Height 165.1 cm (5' 5) 08/08/2016 9:32 AM ABORIGINAL LIAISON OFFICER Body Mass Index 25.59 08/08/2016 9:32 AM ABORIGINAL LIAISON OFFICER Plan of Treatment Health Maintenance Due Date Last Done Comments HIV for age 15-65 1977 Hepatitis C screening for age 18-79 1980 Lipids for age 45-75 05/22/2011 05/22/2006 Zoster (shingles) series for age 50+ (1 of 2) 2012 Mammogram for age 45-75 09/04/2015 09/04/20 14 (Completed outside of [email or web address]) Tetanus booster 11/21/2016 11/21/2006 Depression screening for age 12+ 01/16/2017 01/17/2016 BMI (ht and wt on same day) for age 18+ 08/08/2017 08/08/2016, 03/23/2016, 01/17/2016 Pap test for age 21-65 11/10/2022 0, 11/10/2019, 07/29/2014, Additional history exists COVID-19 vaccine series (2023- season) 2024 01/31/2022, 01/15/2021, 12/25/2020 Influenza for age 50-64 06/01/2024 08/08/20 16, 08/05/2013, 07/08/2012, Additional history exists Fecal testing sDNA-FIT (Cologuard) for age 45-75 10/30/2025 10/30/2022 (Verified in Care Everywhere or Patient Record) Tdap Completed 11/21/2006 Pneumococcal series for age 6-64 Aged Out No longer eligible based on patient's age to complete this topic Procedures Procedure Name Priority Date/Time Associated Diagnosis Comments SCANNING MANAGER THIN PREP PAP SCREEN IMAGED Routine 11/10/2019 2:00 PM ABORIGINAL LIAISON OFFICER LIPID PANEL Timed 05/22/2006 12:21 PM CDT from Last 3 Months or Most Recently Relevant to Health Maintenance Results * SCANNING MANAGER THIN PREP PAP SCREEN IMAGED (11/10/2019 2:00 PM ABORIGINAL LIAISON OFFICER) Case Report Gynecologic Cytology Report ? Case: [id number] ? Authorizing Provider: ??Iza Baker MD ?Collected: ? 11/10/2019 1400 ? Ordering Location: ? [facility] ?Received: ?11/11/2019 1747 ? First Screen: ?Brianna Summers ? Specimen: ?SCANNING MANAGER ThinPrep Vial Screening, Cervical/Vaginal ? 11/20/2019 2:21 PM ABORIGINAL LIAISON OFFICER [facility] INTERPRETATION/ RESULT NEGATIVE FOR INTRAEPITHELIAL LESION OR MALIGNANCY (NIL) (none) 11/20/2019 2:21 PM [facility] IMEN ADEQUACY Satisfactory for evaluation No endocervical component seen 11/20/2019 2:21 PM [facility] HPV REQUEST HPV and PAP 11/20/2019 2:21 PM [facility] Last Pap Date 07/29/2014 11/20/2019 2:21 PM [facility] Last Pap Result NIL 0 2:21 PM [facility] Menstrual Status 11/20/2019 2:21 PM [facility] Comment:menopause Additional Information 11/20/2019 2:21 PM [facility] Comment: Interpreted at [facility] - [address], [place] [address] Automated Review Successful 11/20/2019 2:21 PM [facility] Comment:Specimen processed s uccessfully by automated interdisciplinary professor device, ThinPrep Imaging System, [employer] ANCILLARY TESTING SCANNING MANAGER HPV Ordered, Please see separate report 11/20/2019 2:21 PM [facility] Note The pap test is a screening technique, not a diagnostic procedure. It is used primarily to screen for squamous cancers and precursor lesions. Published studies have shown that it is subject to both false negative and false positive results. The pap test should not be used as the sole means to diagnose or exclude pre-malignant and malignant lesions. 11/20/2019 2:21 PM ABORIGINAL LIAISON OFFICER [facility] Other (Cervical/Vagina l) 11/10/2019 2:00 PM ABORIGINAL LIAISON OFFICER 11/11/2019 5:47 PM ABORIGINAL LIAISON OFFICER Iza Baker MD PATHOLOGY/CYTOLOGY [facility] [address] [place] [address], [place] * (ABNORMAL) LIPID PANEL (05/22/2006 12:21 PM CDT) CHOLESTEROL,TOTAL 197 110 - 199 mg/dL [facility] TRIGLYCERIDES 180(H) <150 mg/dL [facility] HDL CHOLESTEROL 37(L) >40 mg/dL [facility] CHOL/HDL RATIO 5.32(H) <4.51 [facility] LDL CHOLESTEROL 124 <131 mg/dL [facility] PATIENT STATUS Fasting [facility] 05/22/2006 12:2 1 PM CDT 05/22/2006 12:21 PM CDT Waldo Sanders MD CHEMISTRY [facility] [address] [place] [address] from Last 3 Months or Most Recently Relevant to Health Maintenance Care Teams Supervisor Instant Potato Processing Relationship Specialty Start Date End Date Aminata Coe PA-C [address] [facility] [place] [address] PCP - General Physician [employer] Vice President 03/22/23
--- OUTSIDE RECORDS SUMMARY | 2024-08-05 15:29 | XMS_ITS | Clinical Summary ---
Author Organization [facility] Address [address] [place] [address] Care Team Providers Care Microbiology Supervisor Name Role Phone None Reported, Pcp Primary Care Provider Unavail able Source Comments Patient records contain information from all sites at [facility]. For routine questions regarding patient records, call [phone] during business hours, M-F 8:00 AM - 5:00 PM Central Time. Record requests for emergency care only can be directed to [phone] at any time.[facility] Allergies Active Allergy Reactions Criticality Noted Date Comments Latex Rash 04/19/2018 And rubber: Contact dermititis Medications * This document contains information received from the source organization and may not represent a complete record from that organization. multivit with minerals/lutein (MULTIVITAMIN 50 PLUS ORAL) Take 1 tablet by mouth daily. 0 Active fluocinonide (LIDEX) 0.05 % external solution Apply 0.05 application topically 2 (two) times a day as needed for rash. 60 mL 1 2 Active fluocinolone (DERMA-SMOOTHE) 0.01 % external oil Apply once weekly overnight to scalp. 2 Active rosuvastatin (CRESTOR) 20 mg tablet Take 1 tablet (20 mg total) by mouth daily. 30 tablet 5 3 Active levothyroxine (SYNTHROID, LEVOTHROID) 88 mcg tablet Take 1 tablet by mouth every morning before breakfast on an empty stomach. 90 tablet 3 3 Active Active Problems Patient Care Coordination No [...] Mom: high cholesterol, no h/o stroke or [place], age 80s Dad: on statin, 82 yo, [...] ?? Assessment & Plan (10/30/2020 3:37 PM NARROW FABRIC LOOM FIXER): ASCVD risk is low at 3.3%, but [...] to guide decision about statin therapy (consider [facility] self pay option for $100) --if [...] to guide decision about statin therapy (consider [facility] self pay option for $100) Hypothyroidism 02/20/2010 Overview (10/30/2020): Longstanding, at least since 2007. 10/22/2020 TSH 3.75. Assessment & Plan (10/30/2020 3:29 PM NARROW FABRIC LOOM FIXER): --labs 10/22/2020 TSH 3.75 --continue levothyroxine 75mcg daily --annual TSH Psoriasis 02/20/2010 Melanoma Of Skin Cancer Personal History 007 Overview (01/31/2022): (r) breast. (2004) Goes to [facility] Dermatology 12/2021: Skin lesion biopsied, result: Solar lentigo Assessment & Plan (10/30/2020 3:28 PM NARROW FABRIC LOOM FIXER): --annual screening skin exam --sun protection measures [...] Communication Department of Community Internal Medicine in [place] [address] [place] [address] Aminata Coe MPAS, P.A.-C. from Last 3 [...] Comments Hypertension Aunt Paternal Hyperlipidemia Brother Carlos Addison Anxiety disorder Daughter Elizabeth Medina Hyperlipidemia Father Clayton Jaime Multiple myeloma Father Clayton Jaime Other cancer Father Clayton Jaime Father 2015 Sleep apnea Father Clayton Jaime Coronary artery disease Father's Sister aunt Hypertension Maternal Grandfather Motor vehicle accident Maternal Grandfather Alcohol abuse Mother Lisy goodrich using May 04, 2023 Alzheimer's disease Mother Lisy Jaime Dementia Mother Lisy Jaime Depression Mother Lisy Addison After her hu sband was diagnosed with Cancer in 2015. Not prior Hyperlipidemia Mother Lisy Jaime Suicide [...] week 07/21/2020 How often do you attend presybeterian or synagogue serv ices? Never 07/21/2020 Do you belong to any clubs o r organizations such as presybeterian groups, unions, fraternal or athletic groups, or [...] your living situation today? I have a [facility] place to live 08/02/2023 Education Answer Date Recorded What is the highest level of school you have completed or the highest degree you have received? 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 Not on file Not on file Last Filed Vital Signs Vital Sign Reading Time Taken Comments Blood Pressure 118/74 02/27/2023 7:49 AM CDT Pulse 60 02/27/2023 7:49 AM CDT Temperature 35.7 ??C (96.2 ??F) 02/27/2023 7:49 AM CD T Respiratory Rate 16 02/27/2023 7:49 AM CDT Oxygen Saturation 97% 10/28/2020 10:33 AM NARROW FABRIC LOOM FIXER Inhaled Oxygen Concentration - - Weight 65.5 [...] 02/12/2022 (Performed elsewhere), 09/19/2019, Additional history exists Cervical/Vaginal Cancer Screening 11/10/2024 11/10/2019, 11/10/2019, 11/10/2019, Additional history exists DTaP,Tdap,and Td Vaccines (4 - Td or Tdap) 07/14/2025 07/14/2015, 11/21/2006, 11/21/2006 Cologuard 10/23/2025 10/23/2022 Colorectal Cancer Screening 10/23/2025 Fasting Glucose for Diabetes Screening 07/04/2026 07/04/2023, 07/04/2023, 01/31/2023, Additional history exists Lipid (Cholesterol) Screening 07/04/2028 07/04/2023, 07/04/2023, 01/31/2023, Additional history exists IPV Vaccines Aged Out No longer eligi ble based on patient's age to complete this topic Pneumococcal vaccine (0-64 years) Aged Out No longer eligible based on patient's age to complete this topic Procedures Procedure Name Priority Date/Time Associated Diagnosis Comments GLUCOSE, FASTING, S/P Routine 07/04/2023 9:19 AM CDT Hyperlipidemia LIPID PANEL, S Routine 07/04/2023 9:17 AM CDT Hyperlipidemia THYROID FUNCTION CASCADE, S Routine 07/04/2023 9:17 AM CDT Hyperlipidemia COLOGUARD Routine 10/23/2022 7:00 AM NARROW FABRIC LOOM FIXER Screening Cancer Colon EXT THINPREP W/HPV CO-TEST [...] 9:19 AM CDT 07/04/2023 11:06 AM CDT us Susu Sevilla M.D., M.P.H. LAB BLOOD NON ADD -ON Final Result [facility] [address] [place], [place] [id number] [place] [address] OW[address] [facility] [place] [place] [address] * (ABNORMAL) Lipid Panel (07/04/2023 9:17 AM [...] for FH and FDB is available through [facility]. ----REFERENCE VALUE---- Desirable: <100 mg/dL Above [...] 9:17 AM CDT 07/04/2023 11:42 AM CDT us Susu Sevilla M.D., M.P.H. LAB BLOOD ADD-ON Final Result [facility] [address] [place] [address], [place] [facility] [place] [address] [place] [address] * Thyroid Function [place] (07/04/2023 9:17 AM CDT) TSH, Sensitive 2.6 0.3 - 4.2 mIU/L 07/04/2023 12:52 PM CDT OWAT Blood (Blood, Venous) 07/04/2023 9:17 AM CDT 07/04/2023 11:42 AM CDT us Susu Sevilla M.D., M.P.H. LAB BLOOD ADD-ON Final Result [facility] [address] [place] [address], [facility] [place] [address], [place] [address] * Cologuard-Sent Out Lab (10/23/2022 7:00 AM NARROW FABRIC LOOM FIXER) Result Negative Negative 10/27/2022 5:39 PM NARROW FABRIC LOOM FIXER EXLI Comment: NEGATIVE TEST RESULT. A negative [...] (Juanita Iglesias al, N Engl J Med 2014;370(14):6851-7054) The normal value (reference range) for this assay is negative. COLOGUARD RE-SCREENING RECOMMENDATION: Periodic colorectal cancer screening is an important part of preventive healthcare for asymptomatic individuals at average risk for colorectal cancer. ??Following a negative Cologuard result, the [place] Cancer Society and U.S. Multi-Society Task Force screening guidelines recommend a Cologuard re-screening interval of 3 years. References: [place] Cancer Society Guideline for Colorectal Cancer Screening: https://www.cancer.org/cancer/bgwih-nkfcix-jsdyir/detection- diagnosis-staging/acs-recommendations.html.; Jose DK, Du HOLLINS, Mara TownsendK, Colorectal Cancer Screening: Recommendations for Physicians and Patients from the U.S. Multi-Society Task Force on Colorectal Cancer Screening , Am J Gastroenterology 2017; 112:6553-2484. TEST DESCRIPTION: Composite algorithmic analysis of stool [...] colonoscopy. (Juanita Benitez, N Engl J Med 2014;370(14):1937-6540.) Cologuard may produce a false negative or false positive result (no colorectal cancer or precancerous polyp present at colonoscopy follow up). A negative Cologuard test result does not guarantee the absence of CRC or advanced adenoma (pre-cancer). The current Cologuard screening interval is every 3 years. ([place] Cancer Society and U.S. Multi-Society Task Force). Cologuard performance data in a 10,000 patient pivotal study using colonoscopy as the reference method can be accessed at the following location: www.Root Metrics.com/results. Additional description of the Cologuard test process, warnings and precautions can be found at www.cologuard.com. Stool (Stool) 10/23/2022 7:0 0 AM NARROW FABRIC LOOM FIXER 10/24/2022 1:53 PM NARROW FABRIC LOOM FIXER Aminata YOO, P.A.-C. LAB BODY FLUIDS A ND STOOLS ORDERABLES Final Result [facility] [address] [place] [address] EXLI [employer] [address] [place] [address], [address] [place] [address] * EXT ThinPrep w/HPV Co-Test Screen (11/10/2019) EXT ThinPrep w/HPV Co-Test Screen Normal - See Scanned Report for Details Normal - See Scanned Report for Details, HIMS - Report Received and Scanned Thin Prep Vial (Cervix/Endocervi x) 11/10/2019 Historical Provider LAB PAP PATHDX ORDERABLES Fi nal Result * EXT Mammogram (09/19/2019) EXT Mammogram Normal - See Scanned Report for Details Normal - See Scanned Report for Details EXTERNAL NON-INTERFACE D LAB Anatomical Region Laterality Modality Breast, Breast Imaging ARZ L OS, Breast Imaging FLA LOS, Breast Imaging RST LOS N/A Mammography Ordering Provider External M.D. IMG BI PROCEDURE S Final Result from Last 3 Months or Most Recently Relevant to [place] [phone] [facility] Care Teams Microbiology Supervisor Relationship Specialty Start Date End Date None Reported, Pcp PCP - General Family Medicine 06/25/24
--- OUTSIDE RECORDS SUMMARY | 2024-08-05 15:29 | XMS_ITS | Referral Summary ---
Author Organization [facility] Address [address] [place] [address] Care Team Providers Care Wedding Planner Name Role Phone None Reported, Pcp Primary Care Provider Unavail able Source Comments Patient records contain information from all sites at [facility]. For routine questions regarding patient records, call [phone] during business hours, M-F 8:00 AM - 5:00 PM Central Time. Record requests for emergency care only can be directed to [phone] at any time.[facility] Encounters Date Type Department Care Team Description 06/25/2024 Clinical Communication Department of Community Internal Medicine in [place] [address] [place] [phone] Aminata Coe MPAS, P.A.-C. from Last 3 [...] the original. gardenia signed for patients spouse andrea medina. Good for lifetime unless revoked by patient Problem Noted Date Diagnosed Date Gastroesophageal Reflux Disease 04/16/2018 Hyperlipidemia 02/20/2010 Overview (01/23/2022): Images from the original note were not included. 06/21/2020: Lipid Profile 270 TG 212 LDL 185 HDL 43 TSH 3.05 Mom: high cholesterol, no h/o stroke or [place], age 80s Dad: on statin, 82 yo, [...] ?? Assessment & Plan (10/30/2020 3:37 PM SALES ENABLEMENT CONSULTANT): ASCVD risk is low at 3.3%, but [...] to guide decision about statin therapy (consider [facility] self pay option for $100) --if calcifications [...] to guide decision about statin therapy (consider [facility] self pay option for $100) Hypothyroidism 02/20/2010 Overview (10/30/2020): Longstanding, at least since 2007. 10/22/2020 TSH 3.75. Assessment & Plan (10/30/2020 3:29 PM SALES ENABLEMENT CONSULTANT): --labs 10/22/2020 TSH 3.75 --continue levothyroxine 75mcg daily --annual TSH Psoriasis 02/20/2010 Melanoma Of Skin Cancer Personal History 007 Overview (01/31/2022): (r) breast. (2004) Goes to [facility] Dermatology 12/2021: Skin lesion biopsied, result: Solar lentigo Assessment & Plan (10/30/2020 3:28 PM SALES ENABLEMENT CONSULTANT): --annual screening skin exam --sun protection measures [...] week 07/21/2020 How often do you attend buddhism or congregational serv ices? Never 07/21/2020 Do you belong to any clubs o r organizations such as buddhism groups, unions, fraternal or athletic groups, or [...] Answer Date Recorded PHQ-2 Score 0 01/31/2022 [facility] Occupat ional [facility] - Occupational Stress Questionnaire Answer Date Recorded [...] your living situation today? I have a [facility] place to live 08/02/2023 Education Answer Date Recorded What is the highest level of school you have completed or the highest degree you have received? Bachelor's degree (e.g., BA, AB, BS) 04/17/2019 Comments No Sex and Gender Information Value Date Recorded Sex Assigned at Not on file Legal Sex Female 2:25 AM SALES ENABLEMENT CONSULTANT Gender Identity Female 01/15/2020 9:15 AM CDT [...] CDT Oxygen Saturation 97% 10/28/2020 10:33 AM SALES ENABLEMENT CONSULTANT Inhaled Oxygen Concentration - - Weight 65.5 [...] CDT Hyperlipidemia COLOGUARD Routine 10/23/2022 7:00 AM SALES ENABLEMENT CONSULTANT Screening Cancer Colon EXT THINPREP W/HPV CO-TEST [...] LAB BLOOD NON ADD -ON Final Result [facility] [address] [place] [address], [facility] OW[facility] [place] [address], [place] [address] * (ABNORMAL) Lipid Panel (07/04/2023 9:17 AM [...] for FH and FDB is available through [facility]. ----REFERENCE VALUE---- Desirable: <100 [...] M.D., M.P.H. LAB BLOOD ADD-ON Final Result [facility] [address] [place] [address], [facility] OW[facility] [place] [address] [place] [address] * Thyroid Function [place] (07/04/2023 9:17 AM CDT) TSH, Sensitive 2.6 0.3 - 4.2 mIU/L 07/04/2023 12:52 PM CDT OWAT Blood (Blood, Venous) 07/04/2023 9:17 AM CDT 07/04/2023 11:42 AM CDT Susu Sevilla M.D., M.P.H. LAB BLOOD ADD-ON Final Result [facility] [address] [place] [address], [facility] OWAT [facility] [place] [address] [place] [address] * Cologuard-Sent Out Lab (10/23/2022 7:00 AM SALES ENABLEMENT CONSULTANT) [facility] Signature Result Negative Negative 10/27/2022 5:39 PM SALES ENABLEMENT CONSULTANT EXLI Comment: NEGATIVE TEST RESULT. A negative [...] Oates et al, N Engl J Med 2014;370(14):7137-5768) The normal value (reference range) for this [...] Cancer Society Guideline for Colorectal Cancer Screening: https://www.cancer.org/cancer/lxddg-yveqvc-lxbvpr/detection- diagnosis-staging/acs-recommendations.html.; Jose RIOS, Du HOLLINS, Mara NELSON, Colorectal Cancer Screening: Recommendations for Physicians and Patients from the U.S. Multi-Society Task Force on Colorectal Cancer Screening , Am J Gastroenterology 2017; 112:5777-7229. TEST DESCRIPTION: Composite algorithmic analysis of stool [...] Werner. et al, N Engl J Med 2014;370(14):7535-8006.) Cologuard may produce a false negative or [...] can be accessed at the following location: www.Teads.com/results. Additional description of the Cologuard test process, warnings and precautions can be found at www.[employer]tex[employer]elliCell™ BioSciencesrd.com. Stool (Stool) 10/23/2022 7:0 0 AM SALES ENABLEMENT CONSULTANT 10/24/2022 1:53 PM SALES ENABLEMENT CONSULTANT Aminata YOO P.AKaiser. LAB BODY FLUIDS A ND STOOLS ORDERABLES Final Result [facility] [address] [place] [address] EXLI [employer] [address] [facility], [address] [place] [address] * EXT ThinPrep w/HPV Co-Test Screen (11/10/2019) EXT ThinPrep w/HPV Co-Test Screen Normal - See Scanned Report for Details Normal - See Scanned Report for Details, HIMS - Report Received and Scanned Thin Prep Vial (Cervix/Endocervi x) 11/10/2019 us Historical Provider LAB PAP PATHDX ORDERABLES Fi nal Result * EXT Mammogram (09/19/2019) EXT Mammogram Normal - See Scanned Report for Details Normal - See Scanned Report for Details EXTERNAL NON-INTERFACE D LAB Anatomical Region Laterality Modality Breast, Breast Imaging ARZ L OS, Breast Imaging FLA LOS, Breast Imaging RST LOS N/A Mammography us Ordering Provider External M.D. IMG BI PROCEDURE S Final Result from Last 3 Months or Most Recently Relevant to Health Maintenance Insurance [employer] [facility] Care Teams Wedding Planner Relationship Specialty Start Date End Date None Reported, Pcp PCP - General Family Medicine 06/25/24
--- OUTSIDE RECORDS SUMMARY | 2024-08-05 15:29 | XMS_ITS | Encounter Summary ---
Author Organization [facility] Address [address] [place] [address] Care Team Providers Care Airport Sales Agent Name Role Phone None Reported, Pcp Primary Care Provider Unavail able Encounter Details Date Type Department Care Team (Late st Contact Info) Description 06/25/2024 Clinical Communication Department of Community Internal Medicine in [place], [place] [address] [place] [phone] Aminata Coe MPAS, P.A.-C. [address] [place] [phone] Social History Tobacco Use Types Packs/Day Years [...] week 07/21/2020 How often do you attend latter-day or christian serv ices? Never 07/21/2020 Do you belong to any clubs o r organizations such as latter-day groups, unions, fraternal or athletic groups, or [...] Answer Date Recorded PHQ-2 Score 0 01/31/2022 [facility] Occupat ional [facility] - Occupational Stress [...] your living situation today? I have a [facility] place to live 08/02/2023 Education Answer Date Recorded What is the highest level of school you have completed or the highest degree you have received? 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 - 06/25/2024 9:54 AM CDT Per patient message on 12/03/23 patient established care with [facility] (they do not participate in Care Everywhere so unable to see future appointments) Please PCP elsewhere. documented in this encounter Plan of Treatment Not on file documented as of this encounter Visit Diagnoses Not on filedocumented in this encounter Care Teams Airport Sales Agent Relationship Specialty Start Date End Date None Reported, Pcp PCP - General Family Medicine 06/25/24 documented as of this encounter
--- OUTSIDE RECORDS SUMMARY | 2024-08-05 15:29 | XMS_ITS ---
Author Organization [facility] Address [address] [place] [address] Care Team Providers Care Electronic Tester Name Role Phone Unavailable Unavailable Unavailable Surgery Details Not on file Complications Check Surgery Details section. Procedure Estimated Blood Loss Check Surgery Details section. Procedure Findings Check Surgery Details section. Procedure Specimens Taken Check Surgery Details section.
--- OUTSIDE RECORDS SUMMARY | 2024-08-05 15:30 | XMS_ITS | Encounter Summary ---
Author Organization [email or web address] Address [address], [place] [address] Care Team Providers Care Aircraft Electrician Name Role Phone Albania Zavala MD Primary Care Provider [phone] Reason for Visit * Reason Comments Skin Check FBE- spot of concern on the left thigh, she has a brown spot on the forehead, she has age spots on her hands, a bump on the right forearm The patient has a history of of MM Encounter Details Date Type Department Care Team (Late st Contact Info) Description 07/07/2024 10:15 AM CDT Office Visit [place] [address] [place] [address] [place] [address] [place], [place] [phone] Sun-damaged skin (Primary Dx); Tran angioma; Multiple [...] 70 Equate Ultra Lotion SPF 50 Best [place] Sunscreens: Desizing Machine Operator Jose David's [place] SPF 50+ Banana Boat SunComfort Clear UltraMist SPF 50+ Best Stick Sunscreen: Up & Up Kids Sunscreen Stick SPF 55 [place] Clear sunscreen stick SPF 50 Best Lip Sunscreen: Aquaphor Lip Protectant + Sunscreen Best Oxybenzone Free Sunscreen: [facility] Hydrating Lotion SPF 50 [facility] [place] Sheer Touch Ultra Radiance Lotion SPF 50 Best All-Natural Sunscreen: [place] Active Natural Mineral Cream SPF 30 Unscented [...] Complete Daily Defense SPF 30 Sensitive Skin Desizing Machine Operator [place] daily facial sunscreen SPF 40 invisible gel formula (great for hairy areas) Options for people who hate sunscreen (anything is better than nothing) Gel sunscreens (ie: Neutrogena Hydroboost Gel Sunscreen SPF 50, Desizing Machine Operator [place] daily facial sunscreen SPF 40 invisible gel formula) Avoids white cast to sunscreen so good for darker skin types More spreadable so good for hairy types [place] sunscreens Faster to apply, less heavy but need to ensure adequate amount is used Powder sunscreens (ie: Colorscience Sunforgettable Total Protection Baldwin-on Shield SPF50 (chemicalfree)) For patients who report [...] around the eyes. documented in this encounter Progress Notes * Michelle Shelton MD - 07/07/2024 10:15 AM CDT Dermatology Office Visit Problem List Dermatology Problems Personal history of malignant melanoma of skin Overview Right breast, s/p excision at [facility] 2004 History of dysplastic nevus Overview DN, moderate atypia, right lateral thigh, s/p excision 05/2018. Chief Complaint Patient presents with Skin Check FBE- spot of concern on the left thigh, she has a brown spot on the forehead, she has age spots on her hands, a bump on the right forearm The patient has a history of of MM History of Present Illness: Reshma Nielsen is a 64 y.o. female who presents for full body skin check. States she has a dark spot on her forehead. Doesn't itch or scale. She has a little bump on her right arm. Not painful and isn'tsure when it appeared. She does get scale on her scalp and it gets a bit itchy. Social hx: Going to [place] this weekend to see her son and the [employer] game Allergies: Status Agent Date Noted Reaction Type Active LATEX 04/19/2018 Medications: has a current medication list which includes the following prescription(s): atorvastatin, fluocinolone acetonide scalp, fluocinonide, hydroquinone, levothyroxine, fish oil, and valacyclovir. Physical Examination: General: Well-appearing female, in no distress, alert and oriented. Skin: A full body skin exam including vulvar and perianal area was performed. Findings as noted as below. Assessment and Plan: 1. Sun-damaged skin - sun-exposed skin with diffuse sun-damage - Recommended protecting skin from sun with sun protective clothing and sunscreen for areas that can't be covered. 2. 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 3. Multiple nevi - symmetric, no worrisome features - benign, reassurance, no treatment needed. 4. Seborrheic keratosis - well-demarcated, stuck-on keratotic papule(s) - benign, reassurance, no treatment needed. 5. Skin exam, screening for cancer - skin check done today - Recommended protecting skin from sun with sun protective clothing and sunscreen for areas that can't be covered. 6. Personal history of malignant melanoma of skin Right Breast - well-healed scar(s) at the site(s) of previous melanoma with no evidence of any residual or recurrent lesion - no lymphadenopathy - reviewed the importance of protecting their skin from the sun - reviewed how to monitor the skin for concerning lesions - if anything recurs at these sites, reviewed the importance of returning to clinic for re-evaluation - reviewed the importance of at least annual skin checks with dermatology 7. Seborrheic dermatitis Scalp - scattered ill-defined pink patches with overlying yellow-white scale - reviewed that this is a mcc problem that we keep under control, but do not cure. - recommend an anti-dandruff shampoo 1-2x per week, up to 3x a week when flared, leave on 5 minutesand then rinse. - okay to alternate with other OTC anti-dandruff shampoos 8. Dermatofibroma Right Forearm - Posterior - firm scar-like papule with no worrisome features - benign, reassurance, no treatment needed. 9. AK (actinic keratosis) Mid Forehead - thin erythematous keratotic papule(s) - reviewed the chronic nature of AKs and sun damage - reviewed the low rate of progression to SCC - reviewed treatment options of observation, LN2, and topical field therapy -Patient has trip coming up therefore she will defer treatment until her next visit in August. Follow up: Return to clinic in August for treatment of actinic keratosis on forehead and cosmeticSK treatment, sooner for new concerns. Resident disclosure: This patient was seen and evaluated by me, Mireille Peña MD, the resident physician with the attending, Dr. English. The above note represents our joint plan of care. Discussed diagnosis, workup, and treatment with the patient who expressed understanding and agreement with the plan. Faculty Note: I evaluated and examined the patient with the resident physician today. I have discussed the findings and plan of care with the resident physician. I have reviewed the documentation and where appropriate amended/corrected it. This final version accurately reflects my clinical findings, observations, diagnoses, treatment plan, and follow-up. Michelle Bond MD 07/10/2024, 8:27 PM documented in this encounter Plan of Treatment Upcoming Encounters Date Type Department Care Team (Late st Contact Info) Description 09/04/2024 9:45 AM LAY OUT AND DETAIL DRAFTER Appointment [facility] 3800 Dermatology [address] [place] [address] Michelle Shelton MD [address] [place] [address] documented as of this encounter Visit Diagnoses [...] keratosis documented in this encounter Care Teams Aircraft Electrician Relationship Specialty Start Date End Date Albania Zavala MD [address] [place] [address] PCP - General 08/09/12 documented as of this encounter
--- OUTSIDE RECORDS SUMMARY | 2024-08-05 15:30 | XMS_ITS | Encounter Summary ---
Author Organization [employer] Address [address] [address] Care Team Providers Care Ground Crew Chief Name Role Phone Albania Zavala MD Primary Care Provider [phone] Reason for Visit * Reason Onset Date Comments Refill calcipotriene 0. 004%-fluorouracil 4% ointment Clinical Question - Miscellaneous 07/23/2024 Encounter Details Date Type Department Care Team (Late st Contact Info) Description 07/23/[address] [facility] [address] [place] [address] Michelle Shelton MD [address] [place] [address] Refill (calcipotriene 0.004%-fluorouracil 4% ointment); Clinical Question - Miscellaneous Social History Tobacco [...] as of this encounter Nursing Notes * Jennifer Ramirez RN - 07/30/2024 11:01 AM CDT Patient called and states that she has not heard anything about her prescription. Contacted [facility] and they said that they have been trying to contact her to see if she wants it now. Clarified thatshe does want it now. They should have it to her by the weekend. Let patient know. She is wonderingif she needs to do her entire face or just her forehead? She said that she has a spot on the right side of the bridge of her nose. It's not smooth and it is bothersome like in the past. * Nahomi Baumann LPN - 07/23/2024 2:40 PM CDT Derm Triage Note Name of Caller: Reshma Refill Request - Med not on protocol: Requested Prescriptions Pending Prescriptions Disp Refills calcipotriene 0.004%-fluorouracil 4% ointment 20 g 0 Sig: Apply topically two times a day for 4 days. As the requested medication is excluded from the refill protocol, this request is being routed to the prescribing clinician for review. Per 07/07/24 visit note: 9. AK (actinic keratosis) Mid Forehead - thin erythematous keratotic papule(s) - reviewed the chronic nature of AKs and sun damage - reviewed the low rate of progression to SCC - reviewed treatment options of observation, LN2, and topical field therapy -Patient has trip coming up therefore she will defer treatment until her next visit in August. Action needed from clinician: Please evaluate if it is appropriate to refill the requested medication. Patient has decided she would like to treat topically prior to her nephews wedding in mid August.She will be traveling to [facility] in October. Source of refill request: Patient call Date last prescription sent: 06/27/22 How many refills were given: QTY# 20g x 0 refills Last Visit Maximum visits displayed: 1 Date Type Department Provider Description 07/17/[address] [facility] 3800 Dermatology Sissy Turner MD Seborrheic keratosis (Primary Dx); Neoplasm of skin (HRC) Follow-up interval per last visit note: Per 07/17/24 visit note: Return to clinic as scheduled withDrYuko Lionda for FBE, sooner for new concerns. Date(s) of failed/cancelled Derm appt: 06/24/24 Future Dermatology Appointments Provider Department Center 09/04/2024 9:45 AM Michelle Shelton MD [facility] 3800 Dermatology PN [id number] Patient info verified: Pharmacy updated in Meds/Orders:yes Call Back Number if needed: [phone] Message OK: yes documented in this encounter Plan of Treatment Upcoming Encounters Date Type Department Care Team (Late st Contact Info) Description 09/04/2024 9:45 AM ROLL FORM OPERATOR Appointment [place] [phone] Dermatology [address] [place] [address] Michelle Shelton MD [address] [place] [address] documented as of this encounter Visit Diagnoses Not on filedocumented in this encounter Care Teams Ground Crew Chief Relationship Specialty Start Date End Date Albania Zavala MD [address] [place] [address] PCP - General 08/09/12 documented as of this encounter
--- OUTSIDE RECORDS SUMMARY | 2024-08-05 15:30 | XMS_ITS | Clinical Summary ---
Author Organization [employer] Address [address] [address] Care Team Providers Care Delivery Sales Worker Name Role Phone Albania Zavala MD Primary Care Provider [phone] Source Comments You are receiving this document as you are listed as the primary care provider,follow-up provider, or the patient has been referred to you for consultation.This is in compliance with the Medicare andC[facility] Clinic [facility] Hospitalcaid EHR Incentive Program,which states Providers who transition their patient to another setting of careor provider of care or refers their patient to another provider of care shouldprovide summary care record for each transition of care or referral. [employer] Allergies Active Allergy Reactions Criticality Noted Date Comments Latex 04/19/2018 And rubber: Contact dermititis Medications Medication Sig Dispensed Refills Start Date End Date Status Hydroquinone 4 % cream Apply topically 2 times daily. Apply to darkened areas, hands, for 12 weeks. 28.35 g 1 09/29/2013 Active omega-3 fatty acids (FISH OIL) 1000 MG capsule Take by mouth. 03/16/2016 Activ e fluocinonide (LIDEX) 0.05 % external solution Apply [...] Tablet (10 mg) by mouth daily. Active calcipotriene 0.004%-fluorourac il 4% ointment Apply topically two times a day for 4 days. 20 g 06/27/2022 07/23/2024 Discontinued( *Med change OR same med OR reorder, new dose/directio ns) calcipotriene 0.004%-fluorourac il 4% ointment Apply topically two times a day for 4 days. 20 g 07/23/2024 08/03/2024 Active Problems Problem Noted Date Diagnosed Date History of dysplastic nevus 06/14/2020 Overview (06/14/2020): DN, moderate atypia, right lateral thigh, s/p excision 05/2018. Personal history of malignant melanoma of skin 0 05/30/2013 Overview (06/20/2021): Right breast, s/p excision at [facility] 2005 Encounters Date Type Department Care Team Description 07/30/2024 E-Visit [place] [address] [place] [address] Mireille Peña MD 07/23/[address] [address] Michelle Shelton MD Refill (calcipotriene 0.004%-fluorouracil 4% ointment); Clinical Question - Miscellaneous 07/17/2024 10:45 AM CDT Office Visit [address] [address] Sissy Turner MD Seborrheic keratosis (Primary Dx); Neoplasm of skin (HRC) 07/10/[address] [address] Michelle Shelton MD Questions 07/07/2024 10:15 AM CDT Office Visit [facility] 3800 Dermatology [address] [place] [address] Mireille Peña MD Sun-damaged skin (Primary Dx); Tran angioma; Multiple nevi; Seborrheic keratosis; Skin exam, screening for cancer; Personal history of malignant melanoma of skin; Seborrheic dermatitis; Dermatofibroma; AK (actinic keratosis) 06/26/[address] [facility] - Dermatology [address] [place] [address] Michelle Shelton MD Clinical Question - Miscellaneous [...] Comments Blood Pressure 127/83 08/17/2016 12:18 PM PANAMA HAT HYDRAULIC PRESS OPERATOR Pulse - - Temperature 36.8 ??C (98.3 [...] st Contact Info) Description 09/04/2024 9:45 AM PANAMA HAT HYDRAULIC PRESS OPERATOR Appointment [place] [address] Dermatology [address] [place] [address] Michelle Shelton MD [address] [place] [address] Health Maintenance Due Date Last Done Comments [...] Diagnosis Comments EPIDERMAL / DERMAL SHAVING Routine 07/17/2024 11:01 AM CDT Neoplasm of skin (HRC) EPIDERMAL / DERMAL SHAVING Routine 07/17/2024 10:58 AM CDT Neoplasm of skin (HRC) SURGICAL PATHOLOGY, DERMATOLOGY Routine 07/17/2024 10:58 AM CDT Neoplasm of skin (HRC) from Last 3 Months Results * Shave removal (No CPT) (07/17/2024 11:01 AM CDT) Only the most recent of2 resultswithin the time period is included. Sissy Turner MD DERM PROCEDURE ORDER KATY EXTERNAL RESULTS * Surgical Path, Dermatology (07/17/2024 10:58 AM CDT) Case Report Surgical Pathology Report ? Case: [id number] ? Authorizing Provider: ??Sissy Turner MD ? Collected: ? 07/17/2024 1058 ? Ordering Location: ? [place] [address] ? Received: ?07/17/2024 1219 ? Dermatology ? Pathologist: ? Nasir p, Owen S, ? MD ? Specimens: ?? A) - Skin, Left Labium Majus- superior ? B) - Skin, Left Labium Majus ? 07/22/2024 11:35 AM CDT RAILROAD OPERATING ENGINEER 3800 DERMATOLOGY FINAL DIAGNOSIS A. Skin, Left Labium Majus- superior, shave: - Junctional lentiginous melanocytic nevus, free of sampled biopsy margins. B. Skin, Left Labium Majus, shave: -Labial Lentigo (Mucosal melanotic macule) 07/22/2024 11:35 AM CDT RAILROAD OPERATING ENGINEER 3800 DERMATOLOGY Clinical Information A: Clinical Impression: B: Clinical Impression: 07/22/2024 11:35 AM CDT RAILROAD OPERATING ENGINEER 3800 DERMATOLOGY Microscopic Description Microscopic examination is performed. 07/22/2024 11:35 AM CDT RAILROAD OPERATING ENGINEER 3800 DERMATOLOGY Technical Information A portion of the technical [place] [address]. 07/22/2024 11:35 AM CDT RAILROAD OPERATING ENGINEER 3800 DERMATOLOGY Gross Description A: Received in formalin, labeled with the patient's name and Skin, Left Labium Majus- superior is a 4 x 3 x 1 mm shave of skin. The specimen is marked with purple ink, bisected, and submitted entirely in one cassette. B: Received in formalin, labeled with the patient's name and Skin, Left Labium Majus is a 5 x 4 x 1 mm shave of skin. The specimen is marked with black ink, bisected, and submitted entirely in one cassette. DS 07/22/2024 11:35 AM CDT RAILROAD OPERATING ENGINEER 3800 DERMATOLOGY Embedded Images 07/22/2024 11:35 AM CDT RAILROAD OPERATING ENGINEER 3800 DERMATOLOGY Skin (Skin) 07/17/2024 10:5 8 AM CDT 07/17/2024 12:19 PM CDT Comment:Clinical Impression: Skin structure (body structure) (Skin) 07/17/2024 11:01 AM CDT 07/17/2024 12:19 PM CDT Comment:Clinical Impression: Sissy Turner MD LAB PATHOLOGY Performing Organization Address City/State/ZIP Co mt Phone Number [facility] [address] [facility] [address] [place] [address], [facility] from Last 3 Months Care Teams Delivery Sales Worker Relationship Specialty Start Date End Date Albania Zavala MD [address] [place] [address] PCP - General 08/09/12
--- OUTSIDE RECORDS SUMMARY | 2024-08-05 15:30 | XMS_ITS | Encounter Summary ---
Author Organization [employer] Address [address], [place] [address] Care Team Providers Care Feltmaker And Weigher Name Role Phone Albania Zavala MD Primary Care Provider [phone] Reason for Visit * Reason Comments Questions Encounter Details Date Type Department Care Team (Late st Contact Info) Description 07/10/[address] [facility] 3800 Dermatology [address] [place] [address] Michelle Shelton MD [address] [place] [phone] Questions Social History Tobacco Use Types Packs/Day Years Used Date Smoking Tobacco: Never Smokeless Tobacco: Never Alcohol Use Standard Drinks/Week Comments No 0 (1 standard drink = 0.6 oz pur e alcohol) Sex and Gender Information Value Date Recorded Sex Assigned at Not on file Gender Identity Not on file Sexual Orientation Not on file documented as of this encounter Nursing Notes * Melodie Hackett RN - 07/15/2024 8:20 AM CDT Patient calling stating she wants to get in before to have 2 dark spots in her genital area. POWER SYSTEM ELECTRICAL ENGINEER is the one that noticed the 2 dark spots and recommended she have them examined by dermatology. Patient states that she has an appointment on at [facility] [place] with December Lisbeth and she is planning on doing a punch biopsy. She is requesting that a chicken and fish cleaner takea look before a painful procedure like a punch biopsy has to be done. Dr. Salinas is out of the office until 07/21/2024. Patient requested to be seen with an provider to have these dark spots checked. She states she has a hx of melanoma and doesn't want to worry about these spots until her August appointment. Patient was scheduled to see Dr. Turner on 07/17/2024 at 10:45am. * Twyla Collado RN - 07/11/2024 9:12 AM CDT Called patient and left detailed voice mail with Dr. Salinas's recommendations, advised she call [phone] with any questions or concerns. * Michelle Shelton MD - 07/10/2024 5:43 PM CDT Patient has an appt in 1 month. We can examine and discuss at that time. * Shavon Olmos RN - 07/10/2024 10:44 AM CDT Patient calling into triage today. She states she had a POWER SYSTEM ELECTRICAL ENGINEER appointment today and her provider mentioned that there are two dark spots in her genital area. Her provider let her know that she thinks the spots may be of concern and may need a biopsy. Should patient come in or take a photo? She hasa history of melanoma and is concerned. Ok to leave a message on her phone. documented in this encounter Plan of Treatment Upcoming Encounters Date Type Department Care Team (Late st Contact Info) Description 09/04/2024 9:45 AM COMFORT ADVISOR Appointment [place] [phone] Dermatology [address] [place] [address] Michelle Shelton MD [address] [place] [address] documented as of this encounter Visit Diagnoses Not on filedocumented in this encounter Care Teams Feltmaker And Weigher Relationship Specialty Start Date End Date Albania Zavala MD [address] [place] [phone] PCP - General 08/09/12 documented as of this encounter
--- OUTSIDE RECORDS SUMMARY | 2024-08-05 15:30 | XMS_ITS | Encounter Summary ---
Author Organization [email or web address] Address [address], [place] [address] Care Team Providers Care Bmw Sales Consultant Name Role Phone Albania Zavala MD Primary Care Provider [phone] Reason for Visit * Reason Onset Date Comments Clinical Question - Miscellaneous 06/26/2024 Encounter Details Date Type Department Care Team (Late st Contact Info) Description 06/26/[address] [facility] - Dermatology [address] [place], [place] [phone] Michelle Shelton MD [address] [place] [phone] Clinical Question - Miscellaneous Social History Tobacco [...] message for Reshma to call clinic at [phone] to schedule spot check. I offered Saturday [...] Type Department Provider Description 06/22/2023 Office Visit [place] [address] Dermatology Michelle Bond MD Diffuse photodamage of skin (Primary Dx); Tran angioma; ... Follow-up interval per last visit note: 06/24/24 -one year, no showed related to tied up with estatestuff (involving her family) Date(s) of failed/cancelled Derm appt: n/a Future Dermatology Appointments Provider Department Center 09/04/2024 9:45 AM Michelle Shelton MD [place] [address] Dermatology PN [id number] Name of Caller: Reshma [...] in Meds/Orders:yes Call Back Number if needed: [phone] Message OK: yes documented in this encounter Plan of Treatment Upcoming Encounters Date Type Department Care Team (Late st Contact Info) Description 09/04/2024 9:45 AM SUPERVISOR FISH BAIT PROCESSING Appointment [facility] 3800 Dermatology [address] [place] [address] Michelle Shelton MD [address] [place] [address] documented as of this encounter Visit Diagnoses Not on filedocumented in this encounter Care Teams Bmw Sales Consultant Relationship Specialty Start Date End Date Albania Zavala MD [address] [place] [address] PCP - General 08/09/12 documented as of this encounter
--- OUTSIDE RECORDS SUMMARY | 2024-08-05 15:30 | XMS_ITS | Encounter Summary ---
Author Organization [employer] Address [address] [address] Care Team Providers Care Paper Cone Maker Name Role Phone Albania Zavala MD Primary Care Provider [phone] Reason for Visit * Reason Comments Spot, Skin Patient presents for a spot in the vaginal and anal area that she is concerned with. No changes noted. The spots have been present for years, but her OBGYN recommended she have it biopsied. She is here today for a second opinion. Encounter Details Date Type Department Care Team (Late st Contact Info) Description 07/17/2024 10:45 AM CDT Office Visit [place] [address] Dermatology [address] [place] [address] Sissy Turner MD [address] [place] [address] Seborrheic keratosis (Primary Dx); Neoplasm of skin (HRC) Social History Tobacco Use Types Packs/Day Years Used Date Smoking Tobacco: Never Smokeless Tobacco: Never Alcohol Use Standard Drinks/Week Comments No 0 (1 standard drink = 0.6 oz pur e alcohol) Sex and Gender Information Value Date Recorded Sex Assigned at Not on file Gender Identity Not on file Sexual Orientation Not on file documented as of this encounter Progress Notes * Sissy Turner MD - 07/17/2024 10:45 AM CDT Images from the original note were not included. Dermatology Office Visit Problem List Dermatology Problems Personal history of malignant melanoma of skin Overview Right breast, s/p excision at [facility] 2004 History of dysplastic nevus Overview DN, moderate atypia, right lateral thigh, s/p excision 05/2018. Chief Complaint Patient presents with Spot, Skin Patient presents for a spot in the vaginal and anal area that she is concerned with. No changes noted. The spots have been present for years, but her OBGYN recommended she have it biopsied. She is here today for a second opinion. History of Present Illness: Reshma Nielsen is a 64 y.o. female who presents for spot check listed above. She states the spots havebeen looked at in the past (years ago) but she is worried that these were no regularly checked at her last [facility] Allergies: Status Agent Date Noted Reaction Type Active LATEX 04/19/2018 Physical Examination: General: Well-appearing female, in no distress, alert and oriented. Skin: A full body skin exam including vulvar and perianal area was performed. Findings as noted as below. Assessment and Plan: 2. SK, left buttocks, Counseled to watch for change in size, color. If any changes in size, color or texture, return to clinic for re-evaluation and possible biopsy. 1. Neoplasm of skin (HRC) (2) Left Labium Majus- superior 4 mm dark brown macule. Rule out DN Shave removal (No CPT) Lesion diameter (cm): 0.4 Informed consent: discussed and consent obtained Timeout: patient name, date of , surgical site, and procedure verified Procedure prep: Patient was prepped and draped in usual sterile fashion Prep type: Isopropyl alcohol Anesthesia: the lesion was anesthetized in a standard fashion Anesthetic: 1% lidocaine w/ epinephrine 1-100,000 local infiltration Instrument used: DermaBlade Hemostasis achieved with: aluminum chloride Outcome: patient tolerated procedure well Post-procedure details: wound care instructions given Specimen 1 - Surgical Path, Dermatology Clinical Impression: Left Labium Majus 4 mm brown macule Shave removal (No CPT) Specimen 2 - Surgical Path, Dermatology Clinical Impression: Left buttock: white harry 1cm patch. Left labia majora, 2 3mm dark brown macule. Follow up: Return to clinic as scheduled with Dr. Salinas for [facility], sooner for new concerns. documented in this encounter Plan of Treatment Upcoming Encounters Date Type Department Care Team (Late st Contact Info) Description 09/04/2024 9:45 AM OUTSIDE SALES REPRESENTATIVE INSURANCE Appointment [facility] [address] Dermatology [address] [place] [address] Michelle Shelton MD [address] [place] [id number] documented as of this encounter Procedures Procedure Name Priority Date/Time Associated Diagnosis Comments EPIDERMAL / DERMAL SHAVING Routine 07/17/2024 11:01 AM CDT Neoplasm of skin (HRC) EPIDERMAL / DERMAL SHAVING Routine 07/17/2024 10:58 AM CDT Neoplasm of skin (HRC) SURGICAL PATHOLOGY, DERMATOLOGY Routine 07/17/2024 10:58 AM CDT Neoplasm of skin (HRC) documented in this encounter Results * Shave removal (No CPT) (07/17/2024 11:01 AM CDT) Sissy Turner MD DERM PROCEDURE ORDER KATY Performing Organization Address City/[facility] Co de Phone Number EXTERNAL RESULTS * Shave removal (No CPT) (07/17/2024 10:58 AM CDT) Narrative EXTERNAL RESULTS - 07/17/2024 10:58 AM CDT Lesion diameter (cm): ??0.4 Informed consent: discussed and consent obtained ?? Timeout: patient name, date of , surgical site, and procedure verified ?? Procedure prep: ??Patient was prepped and draped in usual sterile fashion Prep type: ??Isopropyl alcohol Anesthesia: the lesion was anesthetized in a standard fashion ?? Anesthetic: ??1% lidocaine w/ epinephrine 1-100,000 local infiltration Instrument used: DermaBlade ?? Hemostasis achieved with: aluminum chloride ?? Outcome: patient tolerated procedure well ?? Post-procedure details: wound care instructions given ?? Sissy Turner MD DERM PROCEDURE ORDER KATY Performing Organization Address City/[facility] Co de Phone Number EXTERNAL RESULTS * Surgical Path, Dermatology (07/17/2024 10:58 AM CDT) Case Report Surgical Pathology Report ? Case: [id number] ? Authorizing Provider: ??Sissy Turner MD ? Collected: ? 07/17/2024 1058 ? Ordering Location: ? [facility] [address] ? Received: ?07/17/2024 1219 ? Dermatology ? Pathologist: ? Nasir p, Owen S, ? MD ? Specimens: ?? A) - Skin, Left Labium Majus- superior ? B) - Skin, Left Labium Majus ? 07/22/2024 11:[address] [facility] [address] DERMATOLOGY FINAL DIAGNOSIS A. Skin, Left Labium Majus- superior, shave: - Junctional lentiginous melanocytic nevus, free of sampled biopsy margins. B. Skin, Left Labium Majus, shave: -Labial Lentigo (Mucosal melanotic macule) 07/22/2024 11:[address] [facility] [address] DERMATOLOGY Clinical Information A: Clinical Impression: B: Clinical Impression: 07/22/2024 11:35 AM [facility] 38[address] DERMATOLOGY Microscopic Description Microscopic examination is performed. 07/22/2024 11:35 AM [facility] [address] DERMATOLOGY Technical Information A portion of the technical staining was performed at [facility], [address] [place] [address]. 07/22/2024 11:[address] [facility] [address] DERMATOLOGY Gross Description A: Received in [...] one cassette. DS 07/22/2024 11:[address] [facility] [address] DERMATOLOGY Embedded Images 07/22/2024 11:[address] [facility] [address] DERMATOLOGY Skin (Skin) 07/17/2024 10:5 8 AM CDT 07/17/2024 12:19 PM CDT Comment:Clinical Impression: Skin structure (body structure) (Skin) 07/17/2024 11:01 AM CDT 07/17/2024 12:19 PM CDT Comment:Clinical Impression: Sissy Turner MD LAB PATHOLOGY [facility] [address] documented in this encounter Visit Diagnoses Diagnosis Seborrheic keratosis- Primary Other seborrheic keratosis Neoplasm of skin (HRC) Neoplasm of unspecified nature of bone, soft tissue, and skin documented in this encounter Care Teams Paper Cone Maker Relationship Specialty Start Date End Date Albania Zavala MD [address] [place] [address] PCP - General 08/09/12 documented as of this encounter
--- OUTSIDE RECORDS SUMMARY | 2024-08-05 15:30 | XMS_ITS | Encounter Summary ---
Author Organization [facility] Address [address], [place] [address] Care Team Providers Care Bridge Club Manager Name Role Phone Albania Zavala MD Primary Care Provider [phone] Encounter Details Date Type Department Care Team (Late Contact Info) Description 07/30/2024 E-Visit [facility] [address] Dermatology [address] [place] [address] M[place]ña [place] [address] [place], [place] [address] Social History Tobacco Use Types Packs/Day Years Used Date Smoking Tobacco: Never Smokeless Tobacco: Never Alcohol Use Standard Drinks/Week Comments No 0 (1 standard drink = 0.6 oz pur e alcohol) Sex and Gender Information Value Date Recorded Sex Assigned at Not on file Gender Identity Not on file Sexual Orientation Not on file documented as of this encounter Plan of Treatment Upcoming Encounters Date Type Department Care Team (Late st Contact Info) Description 09/04/2024 9:45 AM HUB CUTTER Appointment [facility] [address] D[address]ology [address] [place] [address] Michelle Shelton MD [address] [place] [phone] documented as of this encounter Visit Diagnoses Not on filedocumented in this encounter Care Teams Bridge Club Manager Relationship Specialty Start Date End Date Albania Zavala MD [address] [facility] [place] [address] PCP - General 08/09/12 documented as of this encounter
== END 2024-08-05 13:08 | disposition home or self-care (01) ==
LOC: NFLDREF 15:28
PROVIDERS: PCP Internal Medicine; Visit Provider Internal Medicine
DX: E78.5 Hyperlipidemia, unspecified (principal)
CPT/HCPCS: 80061

== ENCOUNTER 2024-10-09 13:53 | Outpatient (CLI) | payer OTHER, SELFPAY ==
--- NOTE | 2024-10-09 14:00 | CRLHL7_ITS ---
For Patients: As a result of the Century Cures Act, medical imaging exams and procedure reports are released immediately into your electronic medical record. You may view this report before your referring provider. If you have questions, please contact your health care provider. BILATERAL SCREENING MAMMOGRAM WITH COMPUTER-AIDED DETECTION AND TOMOSYNTHESIS TECHNIQUE: CC and MLO views were obtained. These mammographic images have been obtained using full-field digital technique. These mammographic images were interpreted with the benefit of computer-aided detection. Breast tomosynthesis was used in this interpretation. COMPARISON FILM: 09/12/23, 02/14/22, 10/19/20. FINDINGS: There are scattered areas of fibroglandular density. IMPRESSION: There is no radiographic evidence for malignancy. ASSESSMENT: BI-RADS Category 1: Negative RECOMMENDATION: Routine screening mammogram in 1 year. A lay language report of this examination will be provided to the patient. HILL TRACY M.D. Diagnostic Radiologist [email or web address] VINCENT/kami Transcribed: 10/13/2024, 10:[address]/Dictated by: Hill Tracy MD @ 10/10/2024 10:17:00 AM (Electronically Signed)
== END 2024-10-09 13:54 | disposition home or self-care (01) ==
LOC: MAMMO 13:54
PROVIDERS: PCP Internal Medicine; Visit Provider Physician Assistant
DX: Z12.31 Encounter for screening mammogram for malignant neoplasm of breast (principal)
CPT/HCPCS: 77063; 77067

== ENCOUNTER 2025-07-02 15:59 | Outpatient (CLI) | payer OTHER, SELFPAY | END 2025-07-02 16:00 | disposition home or self-care (01) | PROVIDERS: PCP Internal Medicine; Visit Provider Internal Medicine | DX: E03.9 Hypothyroidism, unspecified (principal); E78.5 Hyperlipidemia, unspecified | CPT/HCPCS: 80061; 84443 ==

== ENCOUNTER 2025-08-12 14:10 | Outpatient (CLI) | payer OTHER, SELFPAY ==
[2025-08-14 20:52] LABS: HPV Source Cervical
[2025-08-18 09:46] LABS: Pap Test Digital Imaging Done
== END 2025-08-12 14:11 | disposition home or self-care (01) ==
PROVIDERS: PCP Internal Medicine; Visit Provider Physician Assistant
DX: Z12.4 Encounter for screening for malignant neoplasm of cervix (principal)
CPT/HCPCS: 87624; 87625; 88141; 88142; 88175